=== PATIENT | male | born 1940 | race Caucasian/White ===

== ENCOUNTER 2019-03-02 13:59 | Inpatient (IN) ==
[2019-03-02] MEDS ORDERED: IOPAMIDOL 100 ML BOTTLE IV ONE (14:00)
[2019-03-02] MEDS ORDERED: ONDANSETRON 4 MG/2 ML VIAL IV ONE (14:14)
[2019-03-02] MEDS ORDERED: 0.9 % SODIUM CHLORIDE 1,000 ML IV ONE (14:14)
[2019-03-02] MEDS: HYDROmorphone 2 MG/ML VIAL IV PRN ×2 (14:24→14:49)
[2019-03-02 15:00] LABS: Hematocrit 42.2 % (41.0-55.0); Mean Cell Volume 98.6 fL (80.0-100.0); Mean Corpuscular HGB Conc 33.2 g/dL (31.0-36.0); Mean Platelet Volume 8.1 fL (7.4-10.4); Platelet Count 306 K/mcL (140-440); RBC 4.28 M/mcL (4.50-5.90); Red Cell Distribution Width 13.8 % (11.5-14.5); WBC 5.4 K/mcL (4.5-11.0)
[2019-03-02 15:12] LABS: POC Blood Urea Nitrogen 15 mg/dl (8-23); POC CO2 25 mmol/L (22-30); POC Calcium, Ionized 1.14 mmol/L (1.16-1.32); POC Chloride 102 mmol/L (96-108); POC Creatinine 0.7 mg/dl (0.7-1.2); POC Glucose, Random 85 mg/dL (70-105); POC Potassium 3.7 mmol/L (3.3-5.1); POC Sodium 141 mmol/L (133-145)
--- NOTE | 2019-03-02 15:31 | Emergency Department Note ---
Abdominal Pain HPI - General Source: patient, family Mode of arrival: ambulatory Limitations: no limitations <Chirag Gomes - Last Filed: 03/02/19 18:08> <Fermin Langford - Last Filed: 03/02/19 18:55> - General Chief Complaint: Abdominal Pain Stated Complaint: abdominal pain Time Seen by Provider: 03/02/19 14:14 - History of Present Illness HPI Narrative: 78-year-old male patient presents to the emergency department after being referred from his chipper operator for worsening abdominal pain. Patient has a very long and complex gastrointestinal history dating back to the . He's had a total of 6 feet of small bowel resected in 2 different surgeries to help treat complex diverticulitis. The first surgery being in 2015 and the second being in 2017. After the second surgery the patient and his tell me this is when most of the problem started. He's been seen by multiple specialists as far as Traci Bhatti over by [place]. His current chipper operator is Dr. Robb here in the local community. He was at Dr. Robb's office for follow-up earlier today. During that time he was complaining of worsening umbilical pain. He has had a history of small bowel instruction in the past and there was worried this may be recurrent. He was referred over to the emergency department for ongoing evaluation and further study. Upon arrival patient describes the pain is worse around his umbilicus. He normally has an underlying abdominal pain but this is now become severe and gnawing. He admits to some nausea but no vomiting. He denies diarrhea. He denies active fever, sweats, chills. He denies shortness of breath. He denies retrosternal chest pain or palpitations. He has a past history of kidney stones and underwent lithotripsy several months back. There was question about him suffering from gastroparesis but fortunately he's had a normal gastric emptying study recently which effectively rules that out. Patient admits to long standing history of marijuana use. There was discussion today at the GI specialist's office about worsening abdominal pain associated with daily marijuana use. Review his active problem list shows the following: A history of photovaporization of the prostate, cholecystectomy, SVT, renal cysts, kidney stones, hypothyroidism, diverticulosis, BPH. (Chirag Gomes) I reviewed and discussed this case with Chirag Gomes PA-C. I agree with his evaluation management documentation. In particular we discussed management and I interviewed the patient myself I got additional history from his . (Fermin Langford) - Related Data Home Medications Medication Instructions Recorded Confirmed Omeprazole [Prilosec] 20 mg PO BIDAC 05/29/15 02/05/19 traZODone HCL [Desyrel] 100 mg PO HS 05/29/15 02/05/19 apixaban 5 mg tablet 5 mg PO BID 07/31/18 02/05/19 aspirin 81 mg chewable tablet 81 mg PO QDAY 07/31/18 02/05/19 cyanocobalamin (vitamin B-12) 500 500 mcg PO QDAY 07/31/18 02/05/19 mcg tablet duloxetine 30 mg capsule,delayed 30 mg PO BID 07/31/18 02/05/19 release metoprolol succinate 25 mg 25 mg PO DAILY 07/31/18 02/05/19 tablet,extended release 24 hr polyethylene glycol 3350 17 PO g 07/31/18 02/05/19 gram/dose oral powder riboflavin (vitamin B2) 100 mg 400 mg PO QDAY tab 10/29/18 02/05/19 tablet linaclotide 145 mcg capsule 145 mcg PO BID cap 11/30/18 02/05/19 Previous Rx's Medication Instructions Recorded tamsulosin 0.4 mg capsule 0.4 mg PO BID #60 cap 07/23/17 tramadol 50 mg tablet 50 mg PO Q6H #30 tab 02/05/19 Allergies Allergy/AdvReac Type Severity Reaction Status Date / Time hydrocodone AdvReac Mild constipatio Verified 02/05/19 11:21 n Review of Systems All systems ED: reviewed and negative except as stated. <Chirag Gomes - Last Filed: 03/02/19 18:08> Abdominal Pain PMH - Social History Smoking status: Never smoker <Chirag Gomes - Last Filed: 03/02/19 18:08> Physical Exam Limitations: no limitations General appearance: alert, anxious, grimacing, in distress, tearful, other (p atient is tachypneic and very anxious upon arrival. He is obviously very uncomfortable.) Head: atraumatic, normocephalic Eye: Present: normal appearance, PERRL, EOMI. Absent: scleral icterus, conjunctival injection ENT: Present: normal oropharynx, mucous membranes moist Neck: Present: trachea midline. Absent: lymphadenopathy Chest: Present: symmetric chest wall rise Respiratory: Present: normal lung sounds bilaterally. Absent: respiratory dis tress, wheezes, stridor, accessory muscle use, prolonged expiratory phase Cardiovascular: Present: regular rate, normal rhythm. Absent: systolic murmur, diastolic murmur Abdominal: Present: soft, tenderness, guarding, hyperactive bowel sounds, scar (well-healed midline surgical scar.). Absent: distention, rebound, rigidity, organomegaly, ascites, mass Abdominal tenderness: Present: edouard umbilical, severe Extremities: Absent: pedal edema, pretibial edema, calf tenderness Back: Present: normal inspection. Absent: tenderness, CVA tenderness (R), CVA tenderness (L) Neurological: Present: alert, oriented X3 Psychiatric: Present: agitated, anxious, tearful Skin: Present: warm, dry <Chirag Gomes - Last Filed: 03/02/19 18:08> Course <Chirag Gomes - Last Filed: 03/02/19 18:08> Course Narrative: Patient was brought into the emergency department any history of physical exam was performed. Saline lock was established and laboratory studies were drawn. CT scan his abdomen was ordered. I reached out to Dr. Robb and we spoke to him about the patient's history and need for further evaluation. At this time Dr. Robb is concern for recurrent small bowel obstruction. Otherwise mention of frequent marijuana use and some concern for marijuana induced hyperemesis/abdominal pain syndrome. Patient was told to stop all marijuana use at today's visit see if this helps with his symptoms. A review of his laboratory studies that she'll following: CBC RBC 4.28, all others within normal limits. CMP alkaline phosphatase mildly elevated 146, all others normal limits. Lactic acid 2.8. Lipase 18. Urinalysis showing hazy yellow urine with specific gravity 1.021, positive proteinuria, negative all others. EKG showing sinus arrhythmia at a rate of 69 bpm, without ST segment changes or ectopy. 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 Radiologist mentioned this is at the site of a prior anastomosis. Increasing dilatation of the intra-and extrahepatic bile ducts. This could be a stricture at the ampulla most likely a mass. There is bilateral nonobstructing kidney stones. After reviewing all of the data, I reached out to the patient's chipper operator (Dr. Robb) once again. He recommended that the patient undergo an MRCP and likely a HIDA scan to help sort out his CT scan findings. I discussed the patient's case with my collaborating physician (Dr. Langford). At this time the patient is in need of ongoing evaluation/management. Dr. Langford has assumed the patient's case and will determine the patient's final disposition. (Chirag Gomes) Vital Signs Temperature 98.1 F 03/02/19 14:01 Pulse Rate 81 03/02/19 14:01 Respiratory Rate 18 03/02/19 14:01 Blood Pressure 123/79 03/02/19 14:01 Pulse Oximetry (%) 97 03/02/19 14:01 Temperature 98.1 F 03/02/19 14:01 Pulse Rate 66 03/02/19 18:31 Respiratory Rate 32 H 03/02/19 18:31 Blood Pressure 124/80 03/02/19 18:31 Pulse Oximetry (%) 99 03/02/19 18:31 Abdominal Pain - Lab Data Result diagrams: 03/02/19 14:20 03/02/19 14:20 - Radiology Data Radiology results reviewed: Yes I reviewed the patient's radiology results. <Chirag Gomes - Last Filed: 03/02/19 18:08> - Lab Data Lab results reviewed: Yes I reviewed the patient's lab results. Result diagrams: 03/02/19 14:20 03/02/19 14:20 - Radiology Data Radiology results reviewed: Yes I reviewed the patient's radiology results. <Fermin Langford - Last Filed: 03/02/19 18:55> - Lab Data Lab Results 03/02/19 03/02/19 03/02/19 Range/Units 14:10 14:20 14:20 WBC 5.4 (4.5-11.0) K/mcL RBC 4.28 L (4.50-5.90) M/mcL Hgb 14.0 (13.5-16.5) g/dL Hct 42.2 (41.0-55.0) % POC Hct (41.0-55.0) % MCV 98.6 (80.0-100.0) fL MCH 32.7 (26.0-34.0) pg MCHC 33.2 (31.0-36.0) g/dL RDW 13.8 (11.5-14.5) % Plt Count 306 (140-440) K/mcL MPV 8.1 (7.4-10.4) fL Total Counted 100 Seg Neutrophils % 75 (38-78) % Band Neutrophils % Not Reportable Lymphocytes % 14 L (15-49) % Monocytes % (Manual) 11 (1-12) % Platelet Estimate Normal (NORMAL) RBC Morphology Normal (NORMAL) VBG Lactic Acid 2.8 H (0.5-2.0) mmol/L POC Sodium (133-145) mmol/L Sodium 141 (133-145) mmol/L POC Potassium (3.3-5.1) mmol/L Potassium 4.0 (3.3-5.1) mmol/L POC Chloride (96-108) mmol/L Chloride 103 (96-108) mmol/L Carbon Dioxide 25 (22-30) mmol/L POC Total CO2 (22-30) mmol/L Anion Gap 13.0 (8-16) POC BUN (8-23) mg/dl BUN 15 (8-23) mg/dl Creatinine 0.7 (0.7-1.2) mg/dl POC Creatinine (0.7-1.2) mg/dl GFR Calculation 91 Glucose 93 (70-105) mg/dL POC Glucose (70-105) mg/dL Calcium 9.6 (8.6-10.4) mg/dl POC WB Ioniz Calcium (1.16-1.32) mmol/L Total Bilirubin 0.2 (0.0-1.0) mg/dL AST 21 (0-37) U/l ALT 22 (0-40) U/l Alkaline Phosphatase 146 H (39-117) U/L Total Protein 7.4 (5.9-8.4) gm/dL Albumin 4.3 (3.2-5.2) gm/dL Globulin 3.1 (2.2-3.7) gm/dL Albumin/Globulin Ratio 1.4 (1.0-2.3) Lipase 18 (7-60) U/L Urine Color Urine Appearance Urine pH (5.0-9.0) Ur Specific Holt (1.000-1.035) Urine Protein (NEG) mg/dL Urine Glucose (UA) (NEG) mg/dL Urine Ketones (NEG) mg/dL Urine Occult Blood (<0.03) mg/dL Urine Nitrate (NEG) Urine Bilirubin (NEG) mg/dL Urine Urobilinogen (NEG) mg/dL Ur Leukocyte Esterase (NEG) /uL Urine RBC (0-1) /hpf Urine WBC (0-4) /hpf Ur Squamous Epith Cells (0-4) /hpf Urine Bacteria (0) /hpf Urine Mucus (0) /hpf 03/02/19 03/02/19 Range/Units 14:56 15:41 WBC (4.5-11.0) K/mcL RBC (4.50-5.90) M/mcL Hgb (13.5-16.5) g/dL Hct (41.0-55.0) % POC Hct 39.0 L (41.0-55.0) % MCV (80.0-100.0) fL MCH (26.0-34.0) pg MCHC (31.0-36.0) g/dL RDW (11.5-14.5) % Plt Count (140-440) K/mcL MPV (7.4-10.4) fL Total Counted Seg Neutrophils % (38-78) % Band Neutrophils % Lymphocytes % (15-49) % Monocytes % (Manual) (1-12) % Platelet Estimate (NORMAL) RBC Morphology (NORMAL) VBG Lactic Acid (0.5-2.0) mmol/L POC Sodium 141 (133-145) mmol/L Sodium (133-145) mmol/L POC Potassium 3.7 (3.3-5.1) mmol/L Potassium (3.3-5.1) mmol/L POC Chloride 102 (96-108) mmol/L Chloride (96-108) mmol/L Carbon Dioxide (22-30) mmol/L POC Total CO2 25 (22-30) mmol/L Anion Gap (8-16) POC BUN 15 (8-23) mg/dl BUN (8-23) mg/dl Creatinine (0.7-1.2) mg/dl POC Creatinine 0.7 (0.7-1.2) mg/dl GFR Calculation Glucose (70-105) mg/dL POC Glucose 85 (70-105) mg/dL Calcium (8.6-10.4) mg/dl POC WB Ioniz Calcium 1.14 L (1.16-1.32) mmol/L Total Bilirubin (0.0-1.0) mg/dL AST (0-37) U/l ALT (0-40) U/l Alkaline Phosphatase (39-117) U/L Total Protein (5.9-8.4) gm/dL Albumin (3.2-5.2) gm/dL Globulin (2.2-3.7) gm/dL Albumin/Globulin Ratio (1.0-2.3) Lipase (7-60) U/L Urine Color Yellow Urine Appearance Hazy Urine pH 6.0 (5.0-9.0) Ur Specific Holt 1.021 (1.000-1.035) Urine Protein 30 A (NEG) mg/dL Urine Glucose (UA) Negative (NEG) mg/dL Urine Ketones Neg (NEG) mg/dL Urine Occult Blood Neg (<0.03) mg/dL Urine Nitrate Neg (NEG) Urine Bilirubin Neg (NEG) mg/dL Urine Urobilinogen Neg (NEG) mg/dL Ur Leukocyte Esterase Neg (NEG) /uL Urine RBC 0 (0-1) /hpf Urine WBC < 1 (0-4) /hpf Ur Squamous Epith Cells < 1 (0-4) /hpf Urine Bacteria 0 (0) /hpf Urine Mucus Many A (0) /hpf - Radiology Data Ordering Physician: Fermin Langford M.D. Date of Service: 03/02/19 Procedure(s): CT abdomen pelvis w con Accession Number(s): [id number] History: Severe abdominal pain TECHNIQUE: The patient was imaged following oral and intravenous contrast scanning during the portal venous phase and the delayed excretory phase. Sagittal and coronal reformats were created. The radiation exposure was limited using dose reduction technology. FINDINGS: The liver is normal in size. There is moderate dilatation of the intrahepatic ducts and more severe dilatation of the extrahepatic ducts. Common hepatic duct is 2 cm and proximal common bile duct is 1.8 cm size. The common bile duct measured 1.2 cm in size on the prior CT scan done on 11/04/18. There is no apparent stone or mass at the ampulla. The gallbladder surgically absent. The liver parenchyma is homogeneous but there is mild generalized fatty infiltration. The spleen is normal in size and homogeneous. Is no evidence of mass or inflammation the pancreas. The adrenals are normal. The patient has a large simple cyst in the middle third of the right kidney which extends exophytically. It measures 6.2 x 7.1 cm. There are few nonobstructing kidney stones within calyces of both kidneys. The largest is located in the middle third of the left kidney and measures 3 x 7 mm. No hydronephrosis is present. Patient had bilateral kidney stones on the prior CT scan. That time there is a larger 7 x 7 mm stone in the lower pole of left kidney which is no longer present. The stomach is very distended with contrast. There is also abnormal dilatation of the proximal duodenum. The third segment of the duodenum measures up to 5.2 cm in diameter. There is a transition point near the junction of third and fourth segment of the duodenum. There is a row of anastomotic sutures at this level. Distal to the anastomosis the fourth portion of the duodenum measures up to 3.9 cm. The dilatation of the duodenum was not present on the prior study but there were anastomotic sutures at the same location. The oral contrast has passed through the stricture into jejunum and ileum. The proximal jejunum measures up to 3.3 cm in diameter. There is a gradual transition to normal caliber ileum. There is no evidence of a distal small bowel obstruction. The wall of the small intestine does not appear thickened or inflamed. There is a large amount of stool throughout the colon. There is no evidence of a distal large bowel obstruction. No diverticulitis or colitis are present. Urinary bladder is decompressed resulting in generalized thickening of the wall. The prostate is mildly enlarged. No mass, adenopathy, ascites or abscess are present within the abdomen or pelvis. The appendix is noninflamed. 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 This is the site of a prior anastomosis. Increasing dilatation of the intra and extrahepatic bile ducts. This could be a stricture at the ampulla and less likely a mass. Nonobstructing bilateral kidney stones Dr. Langford was called with results Dr. Langford was called with the results Interpreted and Authenticated by: Barney Fuchs 03/02/19 (Chirag Gomes) I discussed these results with surgeon Dr. Jameson, his general surgeon. He reviewed the CT scan himself and said that patient did not need surgery at this time. He felt that we could manage the patient here with GI, Dr. Guerin and hospitalist if needed (Fermin Langford) Disposition <Chirag Gomes - Last Filed: 03/02/19 18:08> Pt seen by FOOD SAFETY TECHNICIAN/PA only: No <Fermin Langford - Last Filed: 03/02/19 18:55> Clinical Impression: SBO (small bowel obstruction) Summary: I discussed this case with normally Chirag Gomes PA-C but then with Dr. De Jesus the hospitalist. He advised me to get Dr. Carr involved in case we needed to decide when to transfer the patient. I discussed the case with Dr. Corwin Carr general surgeon here at [facility]. He advised me that he would be a peripheral category consultant and that we needed to do a small bowel follow-through on this patient in the morning. Dr. De Jesus had me additionally order an NG tube for this patient. So we will have Dr. De Jesus admit the patient is hospitalist and Dr. Raiza astudillo will be GI consult. Dr. Jameson, general surgeon at [facility] advised us to do a upper endoscopy as well but did not think he needed ERCP at this time. Dr. Guerin can do this. Dr. Carr will consult as well just in terms of surgical decision-making but if this patient needs surgery he will have to be transported to [facility] because of his abnormal anatomy and complexity. (Fermin Langford) Disposition: Xfer As Inpt ([facility]) Condition: Serious Referrals: Samreen Mathews PA-C [Primary Care Provider] - Corwin Carr MD [Physician] - Ja Bergeron MD [Physician] -
[2019-03-02 15:33] LABS: ALT/SGPT 22 U/l (0-40); AST/SGOT 21 U/l (0-37); Albumin 4.3 gm/dL (3.2-5.2); Albumin/Globulin Ratio 1.4 (1.0-2.3); Alkaline Phosphatase 146 U/L (39-117); Bilirubin,Total 0.2 mg/dL (0.0-1.0); Blood Urea Nitrogen 15 mg/dl (8-23); Calcium 9.6 mg/dl (8.6-10.4); Carbon Dioxide 25 mmol/L (22-30); Chloride 103 mmol/L (96-108); Globulin 3.1 gm/dL (2.2-3.7); Glomerular Filtration Rate 91; Glucose 93 mg/dL (70-105)
[2019-03-02 15:38] LABS: Lymphocytes % 14 % (15-49); Monocytes % (Manual) 11 % (1-12); Platelet Estimate NORMAL (NORMAL); RBC Morphology NORMAL (NORMAL); Segmented Neutrophils % 75 % (38-78)
--- NOTE | 2019-03-02 16:02 | Cat Scan Report ---
History: Severe abdominal pain TECHNIQUE: The patient was imaged following oral and intravenous contrast scanning during the portal venous phase and the delayed excretory phase. Sagittal and coronal reformats were created. The radiation exposure was limited using dose reduction technology. FINDINGS: The liver is normal in size. There is moderate dilatation of the intrahepatic ducts and more severe dilatation of the extrahepatic ducts. Common hepatic duct is 2 cm and proximal common bile duct is 1.8 cm size. The common bile duct measured 1.2 cm in size on the prior CT scan done on 11/04/18. There is no apparent stone or mass at the ampulla. The gallbladder surgically absent. The liver parenchyma is homogeneous but there is mild generalized fatty infiltration. The spleen is normal in size and homogeneous. Is no evidence of mass or inflammation the pancreas. The adrenals are normal. The patient has a large simple cyst in the middle third of the right kidney which extends exophytically. It measures 6.2 x 7.1 cm. There are few nonobstructing kidney stones within calyces of both kidneys. The largest is located in the middle third of the left kidney and measures 3 x 7 mm. No hydronephrosis is present. Patient had bilateral kidney stones on the prior CT scan. That time there is a larger 7 x 7 mm stone in the lower pole of left kidney which is no longer present. The stomach is very distended with contrast. There is also abnormal dilatation of the proximal duodenum. The third segment of the duodenum measures up to 5.2 cm in diameter. There is a transition point near the junction of third and fourth segment of the duodenum. There is a row of anastomotic sutures at this level. Distal to the anastomosis the fourth portion of the duodenum measures up to 3.9 cm. The dilatation of the duodenum was not present on the prior study but there were anastomotic sutures at the same location. The oral contrast has passed through the stricture into jejunum and ileum. The proximal jejunum measures up to 3.3 cm in diameter. There is a gradual transition to normal caliber ileum. There is no evidence of a distal small bowel obstruction. The wall of the small intestine does not appear thickened or inflamed. There is a large amount of stool throughout the colon. There is no evidence of a distal large bowel obstruction. No diverticulitis or colitis are present. Urinary bladder is decompressed resulting in generalized thickening of the wall. The prostate is mildly enlarged. No mass, adenopathy, ascites or abscess are present within the abdomen or pelvis. The appendix is noninflamed. 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 This is the site of a prior anastomosis. Increasing dilatation of the intra and extrahepatic bile ducts. This could be a stricture at the ampulla and less likely a mass. Nonobstructing bilateral kidney stones Dr. Langford was called with results Dr. Langford was called with the results Interpreted and Authenticated by: Barney Fuchs 03/02/19
[2019-03-02 16:38] LABS: Appearance,Urine HAZY; Bacteria,Urine 0 /hpf (0); Bilirubin,Urine NEG (NEG); Color,Urine YELLOW; Glucose,Urine (UA) NEGATIVE (NEG); Ketones,Urine NEG (NEG); Leukocyte Esterase,Urine NEG /uL (NEG); Mucus,Urine MANY /hpf (0); Nitrate,Urine NEG (NEG); Protein,Urine 30 mg/dL (NEG); Specific Gravity,Urine 1.021 (1.000-1.035); Urine Blood NEG mg/dL (<0.03); Urine RBC 0 /hpf (0-1); Urine Squamous Epithelial Cell < 1 /hpf (0-4); Urine WBC < 1 /hpf (0-4); Urobilinogen,Urine NEG (NEG)
--- NOTE | 2019-03-02 18:45 | Internal Med History&Physical ---
Medical - H&P: HPI Patient information: Note initiated : 03/02/19 at 6:42 pm Service Date, if different from initiated Date: [] Patient: Luc Major 78 y/o M admitted on for abdominal pain. Chief Complaint: [] Chief complaint: Nausea vomiting History of present illness: Mr. Major is a 78 year old M with a history of prior bowel surgeries 2 years ago at [facility] following diverticulitis with bowel resection and subsequent anastomosis. Patient has had since recurrent episodes of abdominal pain/anastomotic site stricture with small bowel obstruction that have been man aged conservatively. He has not really had a symptom-free interval over the last 2 years and has been battling intermittent abdominal pain cramping for which she takes a very specific evenly spaced diet with a modified texture. However the last 48 hours his symptoms have progressed to increasing nausea and relentless vomiting, abdominal pain 8 out of 10-10 out of 10 and has not been to take anything by mouth. His abdomen feels like a knot of air that moves with intermittent bowel spasm. He presents to the ER with above symptoms. Initial work-up was consistent with partial small bowel obstruction at the level 3-4th part of duodenum anastomotic site with dilated common bile duct 2 cm. However liver functions were within normal limits. GI was consulted along with surgery Dr. Matos at [facility] who recommended admission locally for conservative management and transfer if the patient fails to improve or deteriorates. In-house surgeon was also consulted from ER who recommends small bowel follow through in the morning. At the time of evaluation patient is fairly distressed. He is received opioids for pain. His nausea has improved. He is currently on crystalloids. NG tube was placed on intermittent low suction. He denies recent changes in medication he denies bloody emesis/cough/fever or diarrhea. He is and lives with his at [place]. No family members are present. Review of systems 10 point review of system was performed and is negative except was discussed above Medical - H&P: PMH Medical history: SVT (supraventricular tachycardia) (Acute) Renal cyst (Acute) Ptosis (Acute) Palpitations (Acute) Kidney stone (Acute) Hypothyroidism (Acute) Left flank pain (Acute) Diverticulosis (Acute) DDD (degenerative disc disease) (Acute) Kidney cyst, acquired (Acute) BPH with urinary obstruction (Acute) History of endoscopy (Acute) Two since 2017 Surgical History History of photovaporization of prostate (Acute 09/06/14) H/O excision of ganglion cyst (Acute) Right History of cholecystectomy (Acute) History of bowel resection (Acute) 06/04/17 Family History Grandmother Malignant neoplasm of uterus Maternal and Paternal Grandfather Cardiac disease Social History smoking status: Never smoker alcohol intake frequency: holiday/special occasion only substance use type: does not use Medical - H&P: Meds Home Medications Medication Instructions Recorded Confirmed Type Omeprazole [Prilosec] 20 mg PO BIDAC 05/29/15 03/02/19 History traZODone HCL [Desyrel] 100 mg PO HS 05/29/15 03/02/19 History tamsulosin 0.4 mg capsule 0.4 mg PO BID #60 cap 07/23/17 03/02/19 Rx apixaban 5 mg tablet 5 mg PO BID 07/31/18 03/02/19 History aspirin 81 mg chewable tablet 81 mg PO QDAY 07/31/18 03/02/19 History cyanocobalamin (vitamin B-12) 500 500 mcg PO QDAY 07/31/18 03/02/19 History mcg tablet duloxetine 30 mg capsule,delayed 30 mg PO BID 07/31/18 03/02/19 History release metoprolol succinate 25 mg 25 mg PO DAILY PRN 07/31/18 03/02/19 History tablet,extended release 24 hr polyethylene glycol 3350 17 17 gm PO DAILY g 07/31/18 03/02/19 History gram/dose oral powder riboflavin (vitamin B2) 100 mg 400 mg PO QDAY tab 10/29/18 03/02/19 History tablet linaclotide 145 mcg capsule 145 mcg PO DAILY cap 11/30/18 03/02/19 History Ascorbate Calcium [Vitamin C] 500 mg PO BID 03/02/19 03/02/19 History Levothyroxine Sodium [Euthyrox] 200 mcg PO DAILY 03/02/19 03/02/19 History traMADol [Ultram] 50 mg PO Q6H PRN 03/02/19 03/02/19 History Allergies Allergy/AdvReac Type Severity Reaction Status Date / Time hydrocodone AdvReac Mild constipatio Verified 02/05/19 11:21 n Medical - H&P: Exam - Constitutional Vitals: Temp Pulse Resp BP Pulse Ox 98.1 F 66 32 H 124/80 99 03/02/19 14:01 03/02/19 18:31 03/02/19 18:31 03/02/19 18:31 03/02/19 18:31 General appearance: moderate distress Exam: Alert but anxious in distress from abdominal pain Nonlabored breathing Head normocephalic Oral cavity dry NG tube in place no ear nose discharge Neck no lymphadenopathy S1-S2 Diminished breath sounds bases regular rhythm Sats on room air Abdomen tender/midline prior incision scar. No rebound or guarding Skin no suspicious lesion Lower extremity no cyanosis clubbing no joint swelling Psych alert cooperative but anxious Neuro nonfocal Medical - H&P: Reslt - Labs CBC & Chem 7: 03/03/19 04:08 03/03/19 04:08 Labs: Short CBC 03/02/19 Range/Units 14:20 WBC 5.4 (4.5-11.0) K/mcL Hgb 14.0 (13.5-16.5) g/dL Hct 42.2 (41.0-55.0) % Plt Count 306 (140-440) K/mcL BMP 03/02/19 14:20 Sodium 141 Potassium 4.0 Chloride 103 Carbon Dioxide 25 BUN 15 Creatinine 0.7 Glucose 93 Calcium 9.6 Liver Function 03/02/19 Range/Units 14:20 Total Bilirubin 0.2 (0.0-1.0) mg/dL AST 21 (0-37) U/l ALT 22 (0-40) U/l Alkaline Phosphatase 146 H (39-117) U/L Albumin 4.3 (3.2-5.2) gm/dL Urine 03/02/19 Range/Units 15:41 Urine Color Yellow Urine Appearance Hazy Urine pH 6.0 (5.0-9.0) Ur Specific [place] 1.021 (1.000-1.035) Urine Protein 30 A (NEG) mg/dL Urine Glucose (UA) Negative (NEG) mg/dL Medical - H&P: A/P (1) SBO (small bowel obstruction) Current visit: Yes Status: Acute * Small bowel obstruction anastomotic site stricture on CT-n.p.o./NG decompression/GI consulted. [facility] a.m. Surgery consulted. Patient has history of prior abdominal surgery at [facility]. Surgeon at [facility] recommends limited management and transfer if patient fails to improve. Continue crystalloids/analgesics/NG decompression. * Abdominal pain management on as needed opioids * Nausea vomiting continue antiemetics/conservative management Prior medical issues will be started on home medications once acute bowel obstruction resolves * History of hypertension * Hypothyroidism * GERD * BPH * Anxiety disorder * Anticoagulation * Full code * Prophylaxis will be heparin, oral anticoagulation will be held at this time Plan * Inpatient admission * NG decompression/crystalloids/pain management * GI consult for upper endoscopy * Keep n.p.o.
[2019-03-02] MEDS ORDERED: POTASSIUM CHLORIDE 40 MEQ in DEXTROSE 5% IN WATER 500 ML IV PRN (20:18)
[2019-03-02] MEDS ORDERED: ONDANSETRON 4 MG/2 ML VIAL IV PRN (20:18)
[2019-03-02] MEDS ORDERED: HYDROmorphone 2 MG/ML VIAL IV PRN (20:18)
[2019-03-02] MEDS ORDERED: ACETAMINOPHEN 1,000 MG/100 ML BOTTLE IV PRN (20:18)
[2019-03-02] MEDS ORDERED: MAGNESIUM SULFATE 2 GM/50 ML BAG IV PRN (20:18)
[2019-03-02] MEDS ORDERED: ACETAMINOPHEN 325 MG TABLET PO PRN (20:18)
[2019-03-02] MEDS: HEPARIN 5,000 UNIT/ML VIAL SQ SCH (22:36)
[2019-03-02] MEDS: 0.9 % SODIUM CHLORIDE 10 ML SYRINGE IV SCH (23:11)
[2019-03-02] MEDS: LACTATED RINGERS 1,000 ML IV SCH (23:11)
[2019-03-03] MEDS: 0.9 % SODIUM CHLORIDE 10 ML SYRINGE IV SCH ×3 (04:13→21:02)
[2019-03-03] MEDS: LACTATED RINGERS 1,000 ML IV SCH ×2 (06:14→17:39)
[2019-03-03 06:57] LABS: Hematocrit 34.4 % (41.0-55.0); Hemoglobin 11.7 g/dL (13.5-16.5); Mean Platelet Volume 7.9 fL (7.4-10.4); Platelet Count 260 K/mcL (140-440); RBC 3.51 M/mcL (4.50-5.90); Red Cell Distribution Width 13.3 % (11.5-14.5); WBC 4.8 K/mcL (4.5-11.0)
[2019-03-03 07:24] LABS: ALT/SGPT 17 U/l (0-40); AST/SGOT 18 U/l (0-37); Albumin 3.4 gm/dL (3.2-5.2); Albumin/Globulin Ratio 1.3 (1.0-2.3); Alkaline Phosphatase 114 U/L (39-117); Bilirubin,Direct < 0.2 mg/dL (0.0-0.3); Bilirubin,Total 0.3 mg/dL (0.0-1.0); Blood Urea Nitrogen 15 mg/dl (8-23); Calcium 8.6 mg/dl (8.6-10.4); Carbon Dioxide 24 mmol/L (22-30); Chloride 102 mmol/L (96-108); Globulin 2.7 gm/dL (2.2-3.7); Glomerular Filtration Rate 91; Glucose 81 mg/dL (70-105); Lactate Dehydrogenase 154 U/L (94-250); Triglycerides 67 mg/dl (<150); Uric Acid 3.3 mg/dL (2.5-8.0)
--- NOTE | 2019-03-03 07:36 | XRay Report ---
HISTORY: Nasogastric tube insertion. FINDINGS: nasogastric tube has been inserted. The tip is in the body in the stomach pointing towards left lower quadrant of the abdomen. There is no widening in the mediastinum. Except for calcified granuloma in the right upper lobe, the lungs are otherwise clear. Heart size is within normal limits and there is no congestive heart failure or pleural effusion. IMPRESSION: Well-positioned nasogastric tube and no acute abnormality Dr. Langford was called with the results Interpreted and Authenticated by: Barney Fuchs 03/03/19
[2019-03-03 09:49] LABS: Band Neutrophils % 2 % (0-10); Eosinophils % (Manual) 2 % (0-7); Lymphocytes % 17 % (15-49); Monocytes % (Manual) 9 % (1-12); Platelet Estimate NORMAL (NORMAL); RBC Morphology NORMAL (NORMAL); Reactive Lymphocytes 1 % (0-2); Segmented Neutrophils % 69 % (38-78)
[2019-03-03] MEDS ORDERED: DIATRIZOATE MEGLU/DIATRIZO SOD 30 ML BOTTLE PO ONE (10:27)
[2019-03-03] MEDS: BENZOCAINE 1 SPRAY BOTTLE TOPICAL PRN ×2 (10:31→14:11)
[2019-03-03] MEDS: HEPARIN 5,000 UNIT/ML VIAL SQ SCH ×2 (10:47→21:02)
--- NOTE | 2019-03-03 12:21 | Internal Med Progress Note ---
Medical - PN: Subj Patient information: Note initiated : 03/03/19 at 12:19 pm Service Date, if different from initiated Date: [] Patient: Luc Major 78 y/o M admitted on 03/02/19 for abdominal pain. Chief Complaint: [] Interval history: Mr. Major is a 78 year old M with a history of prior bowel surgeries 2 years ago at [facility] following diverticulitis with bowel resection and subsequent anastomosis. Patient has had since recurrent episodes of abdominal pain/anastomotic site stricture with small bowel obstruction that have been managed conservatively. He has not really had a symptom-free interval over the last 2 years and has been battling intermittent abdominal pain cramping for which she takes a very specific evenly spaced diet with a modified texture. However the last 48 hours his symptoms have progressed to increasing nausea and relentless vomiting, abdominal pain 8 out of 10-10 out of 10 and has not been to take anything by mouth. His abdomen feels like a knot of air that moves with intermittent bowel spasm. He presents to the ER with above symptoms. Initial work-up was consistent with partial small bowel obstruction at the level 3-4th part of duodenum anastomotic site with dilated common bile duct 2 cm. However liver functions were within normal limits. GI was consulted along with surgery Dr. Matos at [facility] who recommended admission locally for conservative management and transfer if the patient fails to improve or deteriorates. In-house surgeon was also consulted from ER who recommends small bowel follow through in the morning. At the time of evaluation patient is fairly distressed. He is received opioids for pain. His nausea has improved. He is currently on crystalloids. NG tube was placed on intermittent low suction. He denies recent changes in medication he denies bloody emesis/cough/fever or diarrhea. He is and lives with his at [place]. No family members are present. 03/03-patient in significant discomfort. Continuing crystalloid/n.p.o. status and NG decompression. Small bowel follow-through completed this morning. Shortly following imaging patient had a large bowel movement. Nontender nondistended abdomen. Patient feels hungry. Await surgery recommendations. NG tube minimal output. No overnight fever chills. Labs within normal limits - Constitutional Vitals: Vital Signs Temp Pulse Resp BP Pulse Ox 97.1 F 67 16 122/80 94 03/03/19 08:00 03/03/19 08:00 03/03/19 08:00 03/03/19 08:00 03/03/19 08:00 Period Temp Pulse Resp BP Sys/[place] Pulse Ox Last 24 Hr 97.1 F-99.4 F 63-81 12-35 99-135/62-85 93-100 Intake and Output 03/02/19 03/03/19 03/03/19 21:59 05:59 13:59 Intake Total 1000 0 1000 Output Total 300 500 725 Balance 700 -500 275 Weight 144 lb Intake & Output: Intake & Output 03/02/19 03/03/19 03/03/19 21:59 05:59 13:59 Intake Total 1000 0 1000 Output Total 300 500 725 Balance 700 -500 275 Weight 144 lb Intake: IV 1000 1000 Sodium Chloride 0.9% 1,000 ml @ 1000 Wide Open IV BOLUS ONE Rx#: [id number] Lactated Ringers 1,000 ml @ 100 1000 mls/hr IV .Q10H BASIM Rx#: [id number] Oral 0 Output: Gastric Drainage 500 450 Left Nare 500 450 Void Amount 300 275 Other: Urine Appearance Clear Clear Urine Color Dark Yellow Dark Yellow Urine Odor Normal Normal Stool Size Large Stool Color Brown Stool Consistency Soft Liquid # Bowel Movements 1 General appearance: no acute distress Exam: NG compression nonlabored breathing Nondistended,Soft nontender abdomen Anxious No lymphedema Medical - PN: Obj Da - Labs CBC & Chem 7: 03/03/19 04:08 03/03/19 04:08 Labs: Abnormal Lab Results 03/03/19 03/02/19 03/02/19 04:08 15:41 14:56 RBC 3.51 L Hgb 11.7 L Hct 34.4 L POC Hct 39.0 L Lymphocytes % VBG Lactic Acid POC WB Ioniz Calcium 1.14 L Alkaline Phosphatase Urine Protein 30 A Urine Mucus Many A 03/02/19 03/02/19 03/02/19 14:20 14:20 14:10 RBC 4.28 L Hgb Hct POC Hct Lymphocytes % 14 L VBG Lactic Acid 2.8 H POC WB Ioniz Calcium Alkaline Phosphatase 146 H Urine Protein Urine Mucus Meds: Medications Acetaminophen (Tylenol) 650 mg PO Q4-6HP PRN PRN Reason: PAIN/FEVER > 101 Benzocaine (Cetacaine) 1 spray TOPICAL Q4-6HP PRN PRN Reason: Pain Last Admin: 03/03/19 10:31 Dose: 1 spray Documented by: Heparin Sodium (Porcine) (Heparin) 5,000 unit SQ Q12 [facility] Last Admin: 03/03/19 10:47 Dose: 5,000 unit Documented by: Hydromorphone HCl (Dilaudid) 0 mg IV Q4HP PRN PRN Reason: PAIN LEVEL > 6 Last Admin: 03/03/19 10:57 Dose: 0.5 mg Documented by: Lactated Ringer's (Lactated Ringers) 1,000 mls @ 100 mls/hr IV .Q10H [facility] Stop: 03/04/19 02:17 Last Admin: 03/03/19 06:14 Dose: 100 mls/hr Documented by: Acetaminophen (Ofirmev) 1,000 mg in 100 mls @ 200 mls/hr IV Q6HP PRN PRN Reason: PAIN/FEVER > 101 Magnesium Sulfate (Magnesium Sulfate) 2 gm in 50 mls @ 50 mls/hr IV UD PRN PRN Reason: MG = or < 1.7 Potassium Chloride 40 meq/ (Dextrose) 520 mls @ 130 mls/hr IV UD PRN PRN Reason: K+ = or < 3.5 Ondansetron HCl (Zofran) 4 mg IV Q4-6HP PRN PRN Reason: Nausea And Vomiting Last Admin: 03/03/19 02:17 Dose: 4 mg Documented by: Sodium Chloride (Saline Flush) 10 ml IV Q8 [facility] Last Admin: 03/03/19 04:13 Dose: Not Given Documented by: Medical - PN: A/P - Time Spent With Patient Total time spent is greater than 50% in coordination of care (as documented) at patient's floor/unit and/or counseling patient: 25 - 35 minutes (1) SBO (small bowel obstruction) Status: Acute Assessment and plan: * Small bowel obstruction anastomotic site stricture on CT-patient has been on NG decompression/n.p.o. overnight. Small bowel follow-through completed await results. However large bowel movement this morning following SBFT. Surgeon at [facility] recommends conservative management and transfer if patient fails to improve. Upper endoscopy scheduled 03/04 4 PM. Continue crystalloids/analgesics/NG decompression until further surgery recommendations. * Abdominal pain management on as needed opioids * Nausea vomiting clinical improvement noted on antiemetics Prior medical issues-medications will be restarted once patient able to tolerate p.o. * History of hypertension * Hypothyroidism * GERD * BPH * Anxiety disorder * Anticoagulation * Full code * Prophylaxis will be heparin, oral anticoagulation will be held at this time Plan * Await SBFT results * NG decompression/crystalloids/pain management * Upper endoscopy Dr. Guerin 03/04 4 PM * Keep n.p.o. until further surgery recommendations Current Visit: Yes Medical - PN: Qual - VTE Deep Vein Thrombosis/Pulmonary Embolism Present on Admission: No
--- NOTE | 2019-03-03 15:35 | XRay Report ---
HISTORY: Small bowel obstruction with abdominal pain FINDINGS: 720 mL of Gastrografin, diluted 1-3 with water was inserted into the stomach through the indwelling nasogastric tube. Serial images were acquired following the contrast passed through stomach and small bowel into the colon. The contrast reached the colon within one hour and 20 minutes. Two minutes 38 seconds of fluoroscopy time was used. The early images obtained five minutes after insertion of the contrast show much of the contrast has passed through the pylorus into the duodenum and jejunum. Second and third portions of the duodenum are relatively patulous. Fluoroscopy was performed immediately after the overhead images. At the time of fluoroscopy the second and third portions of duodenum had returned to normal caliber. The patient has had prior intestinal surgery at this level. The CT scan performed yesterday revealed sutures in the distal duodenum. The sutures cannot be clearly identified on fluoroscopy. No fixed stricture or mass are seen at the site of the anastomosis. On some of the delayed fluoroscopic images the duodenum again became distended but does not appear obstructed. The Gastrografin mixed with enteric fluid in the small intestine resulting in suboptimal opacification. The jejunum and ileum have normal mucosal pattern and motility. There is no evidence of an intrinsic or extrinsic mass and no stricture is identified. The terminal ileum is difficult to clearly identify but there is no evidence of obstruction at the ileocecal valve. There is a moderate amount of contrast in the right side of the colon at one hour 20 minutes. IMPRESSION: Patulous duodenum. This may be secondary to the prior surgery and possibly denervation. No mechanical obstruction is seen in the duodenum. Normal jejunum and ileum, without evidence of small bowel obstruction or inflammation Interpreted and Authenticated by: Barney Fuchs 03/03/19
[2019-03-04] MEDS: 0.9 % SODIUM CHLORIDE 10 ML SYRINGE IV SCH ×4 (03:34→21:25)
[2019-03-04 07:02] LABS: Hematocrit 34.2 % (41.0-55.0); Hemoglobin 11.5 g/dL (13.5-16.5); Mean Cell Volume 98.6 fL (80.0-100.0); Mean Corpuscular HGB Conc 33.6 g/dL (31.0-36.0); Mean Platelet Volume 7.9 fL (7.4-10.4); Platelet Count 255 K/mcL (140-440); RBC 3.46 M/mcL (4.50-5.90); Red Cell Distribution Width 13.5 % (11.5-14.5); WBC 5.1 K/mcL (4.5-11.0)
[2019-03-04 07:19] LABS: ALT/SGPT 17 U/l (0-40); AST/SGOT 18 U/l (0-37); Albumin 3.4 gm/dL (3.2-5.2); Albumin/Globulin Ratio 1.1 (1.0-2.3); Alkaline Phosphatase 117 U/L (39-117); Bilirubin,Direct < 0.2 mg/dL (0.0-0.3); Bilirubin,Total 0.4 mg/dL (0.0-1.0); Blood Urea Nitrogen 16 mg/dl (8-23); Calcium 8.6 mg/dl (8.6-10.4); Carbon Dioxide 24 mmol/L (22-30); Chloride 102 mmol/L (96-108); Glomerular Filtration Rate 91; Glucose 74 mg/dL (70-105); Lactate Dehydrogenase 174 U/L (94-250); Phosphorous 3.9 mg/dL (2.7-4.5); Triglycerides 57 mg/dl (<150); Uric Acid 3.6 mg/dL (2.5-8.0)
[2019-03-04] MEDS: HEPARIN 5,000 UNIT/ML VIAL SQ SCH (08:53)
[2019-03-04] MEDS ORDERED: METOPROLOL SUCCINATE 25 MG TAB.XL.24H PO PRN (10:09)
[2019-03-04] MEDS ORDERED: traMADol 50 MG TABLET PO PRN (10:09)
[2019-03-04 10:26] LABS: Eosinophils % (Manual) 2 % (0-7); Lymphocytes % 20 % (15-49); Monocytes % (Manual) 9 % (1-12); Platelet Estimate NORMAL (NORMAL); RBC Morphology NORMAL (NORMAL); Segmented Neutrophils % 69 % (38-78)
[2019-03-04] MEDS ORDERED: KETAMINE HCL 50 MG/ML ML IV PRN (12:41)
[2019-03-04] MEDS ORDERED: PROPOFOL 200 MG/20 ML VIAL IV SCH (12:45)
[2019-03-04] MEDS ORDERED: MIDAZOLAM 2 MG/2 ML VIAL IV SCH (12:45)
--- NOTE | 2019-03-04 15:55 | Operative Note ---
DATE OF OPERATION: 03/04/2019 PREPROCEDURE DIAGNOSES: Stricture, duodenum. By history, surgery of the duodenum and jejunum. The patient has a duodenoenterostomy. By history, gallbladder has been removed in 1989. He had some bowel resection in 12/2014 and 05/2017. I believe he has had trouble with diverticulitis in the past. POSTOPERATIVE DIAGNOSES: 1. Gastritis, minimal. 2. EGitis, minimal. 3. Duodenitis, mild. 4. Pyloritis, mild. 5. There is a slight stricture at the EG junction, but the duodenoenterostomy is wide open. No stricture found in the duodenum or jejunum. PROCEDURE: EGD and small bowel enteroscopy - push enteroscopy. SURGEON: Ja Bergeron M.D. INSTRUMENT USED: Olympus VIC [id number] and Olympus VIC [id number]. SPECIMENS OBTAINED: None. Previous evaluation for Helicobacter was negative 06/23/2018. INDICATIONS FOR PROCEDURE: The patient is a 78-year-old gentleman whose primary care provider is Samreen Mathews PA-C. He does have irritable bowel syndrome with predominant constipation and some arthritis. There was concern regarding gastroparesis. However, a nuclear medicine gastric emptying study showed a very normal emptying result. In fact, in 60 minutes 52% of the material had emptied out. This is well within the range of normal. This study was done on 04/21/2018. Recently, the patient has complained of increasing pain. He does use cannabis. This can cause pain. There was concern that he may have had partial bowel obstruction. He was sent to the emergency department. There was a CAT scan done that raised concern regarding a stricture in the duodenum. Radiologist made comments that part of the duodenum was dilated up to 5.2 cm in diameter. There was a transition point near the 3rd and 4th segment of the duodenum. The anastomotic sutures were seen. Distal to the anastomosis, the duodenum was around 3.9 cm in diameter. Because of this, endoscopy was indicated. He did have an EGD by Dr. Cornell at [facility]. This was done in 06/2018. There was no obvious mechanical obstruction of the duodenum. Biopsies were taken. There was no evidence of Helicobacter. Because of the CAT scan findings and the patient's symptoms, endoscopy is indicated. INFORMED CONSENT: Time of informed consent was 1433. The procedure was reviewed with the patient. The patient had no further questions and accepts the risks and benefits thereof. One of the risks that were discussed included . Additional risks that were also discussed included bleeding, reaction to medication, possible perforation and possible need for surgery. IV MEDICATIONS USED: Versed 2 mg and propofol 160 mg. FINDINGS: ESOPHAGUS: Proximal, mid and distal esophagus normal. EG JUNCTION: This was around 41 cm. There was minimal erythema noted. There was a slight narrowing or stricture noted. However, no dilation was accomplished. The patient did not really complain of dysphagia to solid foods. STOMACH: Cardia and fundus normal. Body and antrum: There were a few linear areas of dnvihhm-dy-syor erythema noted. No ulcers were seen. PYLORUS: There was some inflammation of the pyloric channel. Sometimes after the scope was passed, there was a small amount of bleeding. DUODENUM: The bulb appeared normal. The proximal descending limb of the duodenum appeared normal. There was an anastomosis noted. 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 There was some inflammation in the descending limb of the duodenum. Some of this bled a little bit and then stopped on its own. The pediatric colonoscope was used to go deep into the jejunum. No areas of stricture were found. In the proximal jejunum near the anastomosis, there were a few areas of erythema, but no stricturing and no bleeding and no definite angiodysplasia. The endoscope was advanced to about 20 cm to the hub. RECOMMENDATIONS: Continue PPI medication. Continued Dexilant. Given these findings, I am a little concerned the patient may have some partial bowel obstruction secondary to adhesions. Just as Dr. Cornell found, I find no mechanical stricture or narrowing that would cause any symptoms. Sedation time is 1438 to 1520. Please refer to the preprocedure nurse's notes, procedure flowsheet, procedure record, and post-procedure assessment for details of the sedation including the pre-, intra-, and post-service work. CRD:artem Job ID: [id number] Doc ID: [id number] Ja Cornell MD
[2019-03-04] MEDS: OMEPRAZOLE 20 MG CAPSULE PO SCH (17:56)
--- NOTE | 2019-03-04 20:47 | Internal Med Progress Note ---
Medical - PN: Subj Patient information: Note initiated : 03/04/19 at 8:45 pm Service Date, if different from initiated Date: [] Patient: Luc Major 78 y/o M admitted on 03/02/19 for abdominal pain. Chief Complaint: [] Interval history: Mr. Major is a 78 year old M with a history of prior bowel surgeries 2 years ago at [facility] following diverticulitis with bowel resection and subsequent anastomosis. Patient has had since recurrent episodes of abdominal pain/anastomotic site stricture with small bowel obstruction that have been managed conservatively. He has not really had a symptom-free interval over the last 2 years and has been battling intermittent abdominal pain cramping for which she takes a very specific evenly spaced diet with a modified texture. However the last 48 hours his symptoms have progressed to increasing nausea and relentless vomiting, abdominal pain 8 out of 10-10 out of 10 and has not been to take anything by mouth. His abdomen feels like a knot of air that moves with intermittent bowel spasm. He presents to the ER with above symptoms. Initial work-up was consistent with partial small bowel obstruction at the level 3-4th part of duodenum anastomotic site with dilated common bile duct 2 cm. However liver functions were within normal limits. GI was consulted along with surgery Dr. Matos at [facility] who recommended admission locally for conservative management and transfer if the patient fails to improve or deteriorates. In-house surgeon was also consulted from ER who recommends small bowel follow through in the morning. At the time of evaluation patient is fairly distressed. He is received opioids for pain. His nausea has improved. He is currently on crystalloids. NG tube was placed on intermittent low suction. He denies recent changes in medication he denies bloody emesis/cough/fever or diarrhea. He is and lives with his at [place]. No family members are present. 03/03-patient in significant discomfort. Continuing crystalloid/n.p.o. status and NG decompression. Small bowel follow-through completed this morning. Shortly following imaging patient had a large bowel movement. Nontender nondistended abdomen. Patient feels hungry. Await surgery recommendations. NG tube minimal output. No overnight fever chills. Labs within normal limits 03/04-patient doing well. Tolerating clears. EGD does not show any evidence of stricture. Patient started on soft diet post EGD. Will likely discharge in 24 hours. Dull pain nausea vomiting resolved. No concerns per staff. - Constitutional Vitals: Vital Signs Temp Pulse Resp BP Pulse Ox 97.9 F 78 14 125/72 98 03/04/19 19:55 03/04/19 19:55 03/04/19 19:55 03/04/19 19:55 03/04/19 19:55 Period Temp Pulse Resp BP Sys/Williamson Pulse Ox Last 24 Hr 97.9 F-98.5 F 62-90 11-18 105-137/64-82 90-99 Intake and Output 03/04/19 03/04/19 03/04/19 05:59 13:59 21:59 Intake Total 1318 720 Output Total 250 Balance 1068 720 Intake & Output: Intake & Output 03/04/19 03/04/19 03/04/19 05:59 13:59 21:59 Intake Total 1318 720 Output Total 250 Balance 1068 720 Intake: IV 993 Lactated Ringers 1,000 ml @ 100 993 mls/hr IV .Q10H [facility] Rx#: [id number] Oral 325 720 Output: Void Amount 250 Other: Meal Breakfast Percent of Meal Consumed 50% Feeding Ability Independent Urine Appearance Clear Clear Urine Color Light Anaid Bright Yellow Stool Size Small Moderate Stool Color Brown Stool Consistency Loose Liquid Watery General appearance: no acute distress Exam: Alert oriented Nonlabored breathing Nondistended abdomen No anxiety Medical - PN: Obj Da - Labs CBC & Chem 7: 03/04/19 04:05 03/04/19 04:05 Labs: Abnormal Lab Results 03/04/19 03/03/19 03/02/19 04:05 04:08 15:41 RBC 3.46 L 3.51 L Hgb 11.5 L 11.7 L Hct 34.2 L 34.4 L POC Hct Lymphocytes % VBG Lactic Acid POC WB Ioniz Calcium Alkaline Phosphatase Urine Protein 30 A Urine Mucus Many A 03/02/19 03/02/19 03/02/19 14:56 14:20 14:20 RBC 4.28 L Hgb Hct POC Hct 39.0 L Lymphocytes % 14 L VBG Lactic Acid POC WB Ioniz Calcium 1.14 L Alkaline Phosphatase 146 H Urine Protein Urine Mucus 03/02/19 14:10 RBC Hgb Hct POC Hct Lymphocytes % VBG Lactic Acid 2.8 H POC WB Ioniz Calcium Alkaline Phosphatase Urine Protein Urine Mucus Meds: Medications Acetaminophen (Tylenol) 650 mg PO Q4-6HP PRN PRN Reason: PAIN/FEVER > 101 Apixaban (Eliquis) 5 mg PO BID [facility] Ascorbic Acid (Vitamin C) 500 mg PO BID [facility] Aspirin (Aspirin) 81 mg PO QDAY [facility] Benzocaine (Cetacaine) 1 spray TOPICAL Q4-6HP PRN PRN Reason: Pain Last Admin: 03/03/19 14:11 Dose: 1 spray Documented by: Cyanocobalamin (Vitamin B-12) 500 mcg PO QDAY [facility] Duloxetine HCl (Cymbalta) 30 mg PO BID [facility] Hydromorphone HCl (Dilaudid) 0 mg IV Q4HP PRN PRN Reason: PAIN LEVEL > 6 Last Admin: 03/03/19 10:57 Dose: 0.5 mg Documented by: Acetaminophen (Ofirmev) 1,000 mg in 100 mls @ 200 mls/hr IV Q6HP PRN PRN Reason: PAIN/FEVER > 101 Magnesium Sulfate (Magnesium Sulfate) 2 gm in 50 mls @ 50 mls/hr IV UD PRN PRN Reason: MG = or < 1.7 Potassium Chloride 40 meq/ (Dextrose) 520 mls @ 130 mls/hr IV UD PRN PRN Reason: K+ = or < 3.5 Levothyroxine Sodium (Synthroid) 200 mcg PO QAMAC [facility] Metoprolol Succinate (Toprol Xl) 25 mg PO DAILY PRN PRN Reason: Heart Rate- High [facility] Last Admin: 03/04/19 17:56 Dose: 20 mg Documented by: Ondansetron HCl (Zofran) 4 mg IV Q4-6HP PRN PRN Reason: Nausea And Vomiting Last Admin: 03/03/19 02:17 Dose: 4 mg Documented by: Linaclotide [Linzess (] 145 Mcg Cap) 1 dose PO DAILY [facility] Riboflavin [Vitamin (B-2] 400 Mg Tab) 1 dose PO QDAY [facility] Polyethylene Glycol (Miralax) 17 gm PO DAILY [facility] Sodium Chloride (Saline Flush) 10 ml IV Q8 [facility] Last Admin: 03/04/19 14:26 Dose: 10 ml Documented by: Tamsulosin HCl (Flomax) 0.4 mg PO BID [facility] Tramadol HCl (Ultram) 50 mg PO Q6HP PRN PRN Reason: Pain Trazodone HCl (Desyrel) 100 mg PO HS [facility] Medical - PN: A/P - Time Spent With Patient Total time spent is greater than 50% in coordination of care (as documented) at patient's floor/unit and/or counseling patient: 15 - 24 minutes (1) SBO (small bowel obstruction) Status: Acute Assessment and plan: * Small bowel obstruction anastomotic site stricture on CT-clinically resolved. Multiple bowel movements. NG discontinued. Upper endoscopy does not show stricture obstruction. Started on soft diet. Advance as tolerated and possible discharge in 24 hours if patient clinically improved. We will follow-up with surgery at [facility] on discharge * Abdominal pain management-resolved * Nausea vomiting -resolved Prior medical issues-started on home medications * History of hypertension * Hypothyroidism * GERD * BPH * Anxiety disorder * Anticoagulation * Full code * Prophylaxis will be heparin, oral anticoagulation will be held at this time Plan * Advance diet as tolerated * Discharge in 24 hours Current Visit: Yes Medical - PN: Qual - VTE Deep Vein Thrombosis/Pulmonary Embolism Present on Admission: No
[2019-03-04] MEDS ORDERED: traZODone HCL 50 MG TABLET PO SCH (21:00)
[2019-03-04] MEDS: DULoxetine 30 MG CAPSULE PO SCH (21:24)
[2019-03-04] MEDS: TAMSULOSIN 0.4 MG CAPSULE PO SCH (21:24)
[2019-03-04] MEDS: APIXABAN 5 MG TABLET PO SCH (21:24)
[2019-03-04] MEDS: ASCORBIC ACID 500 MG TABLET PO SCH (21:25)
[2019-03-05 05:48] LABS: Hematocrit 34.2 % (41.0-55.0); Hemoglobin 11.5 g/dL (13.5-16.5); Mean Cell Volume 98.7 fL (80.0-100.0); Mean Corpuscular HGB Conc 33.5 g/dL (31.0-36.0); Mean Platelet Volume 7.9 fL (7.4-10.4); Platelet Count 229 K/mcL (140-440); RBC 3.46 M/mcL (4.50-5.90); Red Cell Distribution Width 13.2 % (11.5-14.5); WBC 9.6 K/mcL (4.5-11.0)
[2019-03-05 05:59] LABS: ALT/SGPT 15 U/l (0-40); AST/SGOT 14 U/l (0-37); Albumin 3.4 gm/dL (3.2-5.2); Albumin/Globulin Ratio 1.3 (1.0-2.3); Alkaline Phosphatase 112 U/L (39-117); Bilirubin,Direct < 0.2 mg/dL (0.0-0.3); Bilirubin,Total 0.4 mg/dL (0.0-1.0); Blood Urea Nitrogen 8 mg/dl (8-23); Calcium 8.6 mg/dl (8.6-10.4); Carbon Dioxide 25 mmol/L (22-30); Chloride 108 mmol/L (96-108); Globulin 2.6 gm/dL (2.2-3.7); Glomerular Filtration Rate 97; Glucose 96 mg/dL (70-105); Lactate Dehydrogenase 145 U/L (94-250); Phosphorous 3.5 mg/dL (2.7-4.5); Triglycerides 51 mg/dl (<150); Uric Acid 3.5 mg/dL (2.5-8.0)
[2019-03-05] MEDS: OMEPRAZOLE 20 MG CAPSULE PO SCH (07:06)
[2019-03-05] MEDS: 0.9 % SODIUM CHLORIDE 10 ML SYRINGE IV SCH (07:06)
[2019-03-05 07:19] LABS: Eosinophils % (Manual) 2 % (0-7); Lymphocytes % 7 % (15-49); Monocytes % (Manual) 6 % (1-12); Platelet Estimate NORMAL (NORMAL); RBC Morphology NORMAL (NORMAL); Segmented Neutrophils % 85 % (38-78)
[2019-03-05] MEDS ORDERED: LEVOTHYROXINE 100 MCG TABLET PO SCH (07:30)
[2019-03-05] MEDS: DULoxetine 30 MG CAPSULE PO SCH (08:21)
[2019-03-05] MEDS: APIXABAN 5 MG TABLET PO SCH (08:21)
[2019-03-05] MEDS: TAMSULOSIN 0.4 MG CAPSULE PO SCH (08:21)
[2019-03-05] MEDS: ASCORBIC ACID 500 MG TABLET PO SCH (08:21)
[2019-03-05] MEDS ORDERED: CYANOCOBALAMIN (VITAMIN B-12) 500 MCG TABLET PO SCH (09:00)
[2019-03-05] MEDS ORDERED: RIBOFLAVIN 400 MG PO SCH (09:00)
[2019-03-05] MEDS ORDERED: ASPIRIN 81 MG TAB.CHEW PO SCH (09:00)
[2019-03-05] MEDS ORDERED: POLYETHYLENE GLYCOL 3350 17 GM PACKET PO SCH (09:00)
--- NOTE | 2019-03-05 09:15 | Discharge Summary ---
Medical - DS: Prov Patient information: Note initiated : 03/05/19 at 9:12 am Service Date, if different from initiated Date: [] Patient: Luc Major 78 y/o M admitted on 03/02/19 for abdominal pain. Chief Complaint: [] Date of admission: 03/02/19 20:11 Discharge date: 03/05/19 Primary care physician: Samreen Mathews Consults: 03/02/19 18:30 Consult to Physician [CONS] Routine Comment: Consulting Provider: Olvin Corbin Reason For Exam: Physician to Consult Medical - DS: Meds - Discharge Medications Active and Home Medications: Home Medications Omeprazole [Prilosec] 20 mg PO BIDAC 05/29/15 [History Confirmed 03/02/19 Last Taken 03/02/19 10:00] traZODone HCL [Desyrel] 100 mg PO HS 05/29/15 [History Confirmed 03/02/19 Last Taken 06/01/15] tamsulosin 0.4 mg capsule 0.4 mg PO BID #60 cap 07/23/17 [Rx Confirmed 03/02/19 Last Taken 03/02/19 10:00] apixaban 5 mg tablet 5 mg PO BID 07/31/18 [History Confirmed 03/02/19 Last Taken 03/02/19 10:00] aspirin 81 mg chewable tablet 81 mg PO QDAY 07/31/18 [History Confirmed 03/02/19 Last Taken 03/02/19 10:00] cyanocobalamin (vitamin B-12) 500 mcg tablet 500 mcg PO QDAY 07/31/18 [History Confirmed 03/02/19 Last Taken 03/02/19 10:00] duloxetine 30 mg capsule,delayed release 30 mg PO BID 07/31/18 [History Confirmed 03/02/19 Last Taken 03/02/19 10:00] metoprolol succinate 25 mg tablet,extended release 24 hr 25 mg PO DAILY PRN 07/31/18 [History Confirmed 03/02/19 Last Taken Unknown] polyethylene glycol 3350 17 gram/dose oral powder 17 gm PO DAILY g 07/31/18 [History Confirmed 03/02/19 Last Taken 03/02/19 10:00] riboflavin (vitamin B2) 100 mg tablet 400 mg PO QDAY tab 10/29/18 [History Confirmed 03/02/19 Last Taken 03/02/19 10:00] linaclotide 145 mcg capsule 145 mcg PO DAILY cap 11/30/18 [History Confirmed 03/02/19 Last Taken 03/02/19 10:00] Ascorbate Calcium [Vitamin C] 500 mg PO BID 03/02/19 [History Confirmed 03/02/19 Last Taken 03/02/19 10:00] Levothyroxine Sodium [Euthyrox] 200 mcg PO DAILY 03/02/19 [History Confirmed 03/02/19 Last Taken 03/02/19 06:00] traMADol [Ultram] 50 mg PO Q6H PRN 03/02/19 [History Confirmed 03/02/19 Last Taken Unknown] Medical - DS: Hosp Hospital Course: Discharge diagnosis * Small bowel obstruction anastomotic site stricture on CT-clinically resolved. Multiple bowel movements. NG discontinued. Upper endoscopy no evidence of stricture. Mild gastritis noted. Advance diet as tolerated. Patient feeling well. Requesting discharge. Feels at baseline. will follow-up with surgery at [facility] on discharge * Abdominal pain management-resolved * Nausea vomiting -resolved * Hypertension management home meds * Hypothyroidism on thyroxine * GERD managed on PPI * BPH on tamsulosin * Anxiety disorder * Anticoagulation Brief hospital course Mr. Major is a 78 year old M with a history of prior bowel surgeries 2 years ago at [facility] following diverticulitis with bowel resection and subsequent anastomosis. Patient has had since recurrent episodes of abdominal pain/anastomotic site stricture with small bowel obstruction that have been managed conservatively. He has not really had a symptom-free interval over the last 2 years and has been battling intermittent abdominal pain cramping for which she takes a very specific evenly spaced diet with a modified texture. However the last 48 hours his symptoms have progressed to increasing nausea and relentless vomiting, abdominal pain 8 out of 10-10 out of 10 and has not been to take anything by mouth. His abdomen feels like a knot of air that moves with intermittent bowel spasm. He presents to the ER with above symptoms. Initial work-up was consistent with partial small bowel obstruction at the level 3-4th part of duodenum anastomotic site with dilated common bile duct 2 cm. However liver functions were within normal limits. GI was consulted along with surgery Dr. Matos at [facility] who recommended admission locally for conservative management and transfer if the patient fails to improve or deteriorates. In-house surgeon was also consulted from ER who recommends small bowel follow through in the morning. At the time of evaluation patient is fairly distressed. He is received opioids for pain. His nausea has improved. He is currently on crystalloids. NG tube was placed on intermittent low suction. He denies recent changes in medication he denies bloody emesis/cough/fever or diarrhea. He is and lives with his at [place]. No family members are present. 03/03-patient in significant discomfort. Continuing crystalloid/n.p.o. status and NG decompression. Small bowel follow-through completed this morning. Shortly following imaging patient had a large bowel movement. Nontender nondistended abdomen. Patient feels hungry. Await surgery recommendations. NG tube minimal output. No overnight fever chills. Labs within normal limits 03/04-patient doing well. Tolerating clears. EGD does not show any evidence of stricture. Patient started on soft diet post EGD. Will likely discharge in 24 hours. Dull pain nausea vomiting resolved. No concerns per staff. 03/05-patient doing well. Tolerating diet. Abdominal pain resolved. Nausea vomiting. Upper endoscopy revealed gastritis with esophagitis duodenitis and minimal stricture at the EG junction. Duodenoentrostomy is wide open as per endoscopy results. Continue diet advancement as tolerated. Follow-up with regular surgeon at [facility] as outpatient. Discharge diagnosis: . Secondary discharge diagnosis: . - Time Spent with Patient Total time spent providing and/or coordinating discharge services: Greater than 30 minutes Medical - DS: Exam - Constitutional Vitals: Vital Signs Temp Pulse Pulse Resp BP BP BP 03/05/19 07:10 98.9 F 16 106/67 03/05/19 03:25 97.7 F 85 18 116/70 03/05/19 00:22 97.8 F 80 16 138/82 03/04/19 19:55 97.9 F 78 14 125/72 03/04/19 16:00 98.0 F 62 17 107/67 03/04/19 15:11 78 18 133/78 03/04/19 15:06 76 17 124/81 03/04/19 14:36 87 11 L 137/82 03/04/19 12:00 98.5 F 68 16 113/64 Pulse Ox 03/05/19 07:10 94 03/05/19 03:25 98 03/05/19 00:22 98 03/04/19 19:55 98 03/04/19 16:00 95 03/04/19 15:11 90 03/04/19 15:06 94 03/04/19 14:36 98 03/04/19 12:00 95 Intake and Output 03/04/19 03/05/19 03/05/19 21:59 05:59 13:59 Intake Total 920 575 Output Total 150 300 Balance 770 575 -300 Intake: Oral 920 575 Output: Void Amount 150 300 Other: Meal Snack Percent of Meal Consumed 100% Feeding Ability Independent Urine Appearance Clear Urine Color Straw Urine Odor Normal Stool Size Moderate Stool Color Brown Stool Consistency Liquid Watery # Voids 1 Weight 143 lb Medical - DS: Data Labs on day of discharge: Labs from last 24 hours 03/05/19 03/05/19 03/04/19 03:50 03:50 04:05 WBC 9.6 RBC 3.46 L Hgb 11.5 L Hct 34.2 L MCV 98.7 MCH 33.1 MCHC 33.5 RDW 13.2 Plt Count 229 MPV 7.9 Total Counted 100 100 Seg Neutrophils % 85 H 69 Band Neutrophils % Not Reportable Lymphocytes % 7 L 20 Monocytes % (Manual) 6 9 Eosinophils % (Manual) 2 2 Platelet Estimate Normal Normal RBC Morphology Normal Normal Sodium 143 Potassium 3.3 Chloride 108 Carbon Dioxide 25 Anion Gap 10.0 BUN 8 Creatinine 0.6 L GFR Calculation 97 Glucose 96 Uric Acid 3.5 Calcium 8.6 Phosphorus 3.5 Magnesium 2.0 Total Bilirubin 0.4 Direct Bilirubin < 0.2 GGT 11 AST 14 ALT 15 Alkaline Phosphatase 112 Lactate Dehydrogenase 145 Total Protein 6.0 Albumin 3.4 Globulin 2.6 Albumin/Globulin Ratio 1.3 Triglycerides 51 Medical - DS: A/P - Patient/Caregiver Discharge Instructions Activity: increase activity as tolerated Diet: Regular Diet Additional Instructions: Return to ER if worsening abdominal pain nausea vomiting noted Continue PPI - Follow up Plan Follow up with: Ja Bergeron MD [Physician] - Samreen Mathews I, PA-C [Primary Care Provider] - Jada Carr MD [Physician] - Disposition: Home, Self-Care Prognosis: Fair Rehab Potential: Fair I certify that the patient requires SNF services: No Overall status at discharge: patient is back to baseline Medical - DS: Qual - VTE Deep Vein Thrombosis/Pulmonary Embolism Present on Admission: No
== END 2019-03-05 10:00 | disposition home or self-care (01) | DRG 999 ==
LOC: ED 13:59 → MEDSUR 20:11
PROVIDERS: ADMIT Internal Medicine; ATTEND Internal Medicine

== ENCOUNTER 2019-03-20 15:04 | Inpatient (IN) ==
[2019-03-20] MEDS ORDERED: ONDANSETRON 4 MG/2 ML VIAL IV ONE (15:26)
--- NOTE | 2019-03-20 15:30 | Emergency Department Note ---
Abdominal Pain HPI - General Chief Complaint: Abdominal Pain Stated Complaint: Abd pain Source: patient, family Mode of arrival: wheelchair Limitations: no limitations - History of Present Illness HPI Narrative: Presents to ED with history of mid epigastric abdominal pain and periumbilical abdominal pain starting about 1 hour ago. He states his pain is very severe and intense at times then lets up a little. Denies any hernia. 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 He was last hospitalized 2 weeks ago at which time he had a bowel obstruction, had EGD done had endoscopy done and no stricture was identified. H is symptoms resolved conservatively but now he has the same symptoms back again and. He does have nausea last bowel movement was this morning and had a normal stool. Denies blood in the stool, denies hematemesis, chest pain 2 days ago. Which was left-sided and seemed to radiate through to the back. No history of coronary disease with he does have atrial fibrillation, currently on elibertha PARKS Complaint: abdominal pain - Related Data Home Medications Medication Instructions Recorded Confirmed Omeprazole [Prilosec] 20 mg PO BIDAC 05/29/15 03/09/19 traZODone HCL [Desyrel] 150 mg PO HS 05/29/15 03/20/19 apixaban 5 mg tablet 5 mg PO BID 07/31/18 03/20/19 aspirin 81 mg chewable tablet 81 mg PO QDAY 07/31/18 03/20/19 cyanocobalamin (vitamin B-12) 500 500 mcg PO QDAY 07/31/18 03/20/19 mcg tablet duloxetine 30 mg capsule,delayed 30 mg PO BID 07/31/18 03/20/19 release metoprolol succinate 25 mg 25 mg PO DAILY PRN 07/31/18 03/20/19 tablet,extended release 24 hr polyethylene glycol 3350 17 17 gm PO DAILY g 07/31/18 03/20/19 gram/dose oral powder riboflavin (vitamin B2) 100 mg 400 mg PO QDAY tab 10/29/18 03/20/19 tablet linaclotide 145 mcg capsule 145 mcg PO DAILY cap 11/30/18 03/20/19 Ascorbate Calcium [Vitamin C] 500 mg PO BID 03/02/19 03/20/19 Levothyroxine Sodium [Euthyrox] 200 mcg PO DAILY 03/02/19 03/20/19 traMADol [Ultram] 50 mg PO Q6H PRN 03/02/19 03/20/19 Previous Rx's Medication Instructions Recorded tamsulosin 0.4 mg capsule 0.4 mg PO BID #60 cap 07/23/17 Allergies Allergy/AdvReac Type Severity Reaction Status Date / Time hydrocodone AdvReac Mild constipatio Verified 03/20/19 15:08 n Review of Systems All systems ED: reviewed and negative except as stated. Abdominal Pain PMH - Past Medical History Medical history: Reports: atrial fibrillation, GERD, hypertension, other (hist ory of multiple abdominal diverticuli) Reports: peptic ulcer disease Surgical history ED: Reports: prostatectomy, other (status post bowel resection x2, status post prostate vaporization) Psychiatric history: Reports: no psych history Family history: Reports: non-contributory - Social History Smoking status: Never smoker Alcohol use: Reports: None Drug use: Reports: none Physical Exam Limitations: no limitations General appearance: alert, in distress Head: atraumatic, normocephalic, normal inspection Eye: Present: normal appearance, PERRL, EOMI. Absent: scleral icterus, conjunctival injection ENT: Present: normal exam, normal oropharynx, mucous membranes moist, TM's normal bilaterally. Absent: normal external ear exam Neck: Present: normal inspection, full ROM, trachea midline. Absent: tenderness, meningismus, lymphadenopathy Chest: Present: normal inspection, symmetric chest wall rise. Absent: tenderness Respiratory: Present: normal lung sounds bilaterally. Absent: respiratory distress, rales/crackles, wheezes Cardiovascular: Present: regular rate, normal rhythm, normal heart sounds Abdominal: Present: soft, tenderness, normal bowel sounds. Absent: distention, guarding : Present: normal inspection. Absent: testicular tenderness Extremities: Present: normal inspection, full ROM. Absent: tenderness Back: Absent: CVA tenderness (R), CVA tenderness (L), vertebral tenderness Neurological: Present: alert, oriented X3, CN II-XII intact Psychiatric: Present: normal affect, normal mood Skin: Present: warm, dry, normal color. Absent: rash, hives, cyanosis, diaphoresis, erythema, pallor Course - Reevaluation(s) Reevaluation #1: Discussed with Dr. Carr at. At this point we'll admit him to hospital for further monitoring, bowel rest and IV hydration. Vital Signs Temperature 96.8 F L 03/20/19 15:04 Pulse Rate 106 H 03/20/19 15:04 Respiratory Rate 22 03/20/19 15:04 Blood Pressure 149/93 03/20/19 15:04 Pulse Oximetry (%) 99 03/20/19 15:04 Temperature 96.8 F L 03/20/19 15:04 Pulse Rate 80 03/20/19 17:16 Respiratory Rate 15 03/20/19 17:16 Blood Pressure 127/99 03/20/19 17:31 Pulse Oximetry (%) 95 03/20/19 17:16 Abdominal Pain - MDM Narrative Medical decision making narrative: Impression is multiple air-fluid levels consistent with bowel obstruction. - Lab Data Lab results reviewed: Yes I reviewed the patient's lab results. Result diagrams: 03/20/19 15:30 03/20/19 15:30 Lab Results 03/20/19 03/20/19 03/20/19 Range/Units 15:30 15:30 15:30 WBC 6.6 (4.5-11.0) K/mcL RBC 4.26 L (4.50-5.90) M/mcL Hgb 13.7 (13.5-16.5) g/dL Hct 41.6 (41.0-55.0) % MCV 97.6 (80.0-100.0) fL MCH 32.2 (26.0-34.0) pg MCHC 33.0 (31.0-36.0) g/dL RDW 13.2 (11.5-14.5) % Plt Count 337 (140-440) K/mcL MPV 8.5 (7.4-10.4) fL Gran % 74.8 (38.0-78.0) % Lymph % (Auto) 14.9 L (15.5-49.0) % [place] % (Auto) 8.8 (1.0-12.0) % Eos % (Auto) 0.8 (0.0-7.0) % Baso % (Auto) 0.7 (0.0-2.0) % Gran # 4.9 (1.8-8.0) K/mcL Lymph # (Auto) 1.0 L (1.5-4.8) K/mcL [place] # (Auto) 0.6 (0.1-0.9) K/mcL Eos # (Auto) 0.1 (0.0-0.7) K/mcL Baso # (Auto) 0 (0.0-0.3) K/mcL PT 15.2 H (11.9-14.5) sec INR 1.2 H (0.9-1.1) VBG Lactic Acid (0.5-2.0) mmol/L Sodium 137 (133-145) mmol/L Potassium 4.1 (3.3-5.1) mmol/L Chloride 97 (96-108) mmol/L Carbon Dioxide 26 (22-30) mmol/L Anion Gap 14.0 (8-16) BUN 20 (8-23) mg/dl Creatinine 0.7 (0.7-1.2) mg/dl GFR Calculation 91 Glucose 93 (70-105) mg/dL Calcium 9.5 (8.6-10.4) mg/dl Total Bilirubin 0.2 (0.0-1.0) mg/dL AST 26 (0-37) U/l ALT 19 (0-40) U/l Alkaline Phosphatase 123 H (39-117) U/L C-Reactive Protein < 0.3 (0.0-0.8) mg/dl Total Protein 7.7 (5.9-8.4) gm/dL Albumin 4.1 (3.2-5.2) gm/dL Globulin 3.6 (2.2-3.7) gm/dL Albumin/Globulin Ratio 1.1 (1.0-2.3) Lipase 20 (7-60) U/L 03/20/19 Range/Units 15:35 WBC (4.5-11.0) K/mcL RBC (4.50-5.90) M/mcL Hgb (13.5-16.5) g/dL Hct (41.0-55.0) % MCV (80.0-100.0) fL MCH (26.0-34.0) pg MCHC (31.0-36.0) g/dL RDW (11.5-14.5) % Plt Count (140-440) K/mcL MPV (7.4-10.4) fL Gran % (38.0-78.0) % Lymph % (Auto) (15.5-49.0) % [place] % (Auto) (1.0-12.0) % Eos % (Auto) (0.0-7.0) % Baso % (Auto) (0.0-2.0) % Gran # (1.8-8.0) K/mcL Lymph # (Auto) (1.5-4.8) K/mcL [place] # (Auto) (0.1-0.9) K/mcL Eos # (Auto) (0.0-0.7) K/mcL Baso # (Auto) (0.0-0.3) K/mcL PT (11.9-14.5) sec INR (0.9-1.1) VBG Lactic Acid 2.8 H (0.5-2.0) mmol/L Sodium (133-145) mmol/L Potassium (3.3-5.1) mmol/L Chloride (96-108) mmol/L Carbon Dioxide (22-30) mmol/L Anion Gap (8-16) BUN (8-23) mg/dl Creatinine (0.7-1.2) mg/dl GFR Calculation Glucose (70-105) mg/dL Calcium (8.6-10.4) mg/dl Total Bilirubin (0.0-1.0) mg/dL AST (0-37) U/l ALT (0-40) U/l Alkaline Phosphatase (39-117) U/L C-Reactive Protein (0.0-0.8) mg/dl Total Protein (5.9-8.4) gm/dL Albumin (3.2-5.2) gm/dL Globulin (2.2-3.7) gm/dL Albumin/Globulin Ratio (1.0-2.3) Lipase (7-60) U/L - Radiology Data Radiology results reviewed: Yes I reviewed the patient's radiology results. Disposition Pt seen by MULTIPLE KNIFE EDGE TRIMMER OPERATOR/PA only: No Clinical Impression: Abdominal pain, SBO (small bowel obstruction) Disposition: Xfer As Inpt ([facility]) Condition: Fair Referrals: Samreen Mathews PA-C [Primary Care Provider] -
[2019-03-20] MEDS: HYDROmorphone 2 MG/ML VIAL IV PRN ×4 (15:40→21:57)
[2019-03-20 16:20] LABS: Basophils # (Auto) 0 K/mcL (0.0-0.3); Basophils % (Auto) 0.7 % (0.0-2.0); Eosinophils # (Auto) 0.1 K/mcL (0.0-0.7); Eosinophils % (Auto) 0.8 % (0.0-7.0); Granulocytes % (Auto) 74.8 % (38.0-78.0); Hematocrit 41.6 % (41.0-55.0); Hemoglobin 13.7 g/dL (13.5-16.5); Lymphocytes % (Auto) 14.9 % (15.5-49.0); Mean Cell Volume 97.6 fL (80.0-100.0); Mean Platelet Volume 8.5 fL (7.4-10.4); Monocytes # (Auto) 0.6 K/mcL (0.1-0.9); Monocytes % (Auto) 8.8 % (1.0-12.0); Platelet Count 337 K/mcL (140-440); RBC 4.26 M/mcL (4.50-5.90); Red Cell Distribution Width 13.2 % (11.5-14.5); WBC 6.6 K/mcL (4.5-11.0)
[2019-03-20 16:36] LABS: ALT/SGPT 19 U/l (0-40); AST/SGOT 26 U/l (0-37); Albumin 4.1 gm/dL (3.2-5.2); Albumin/Globulin Ratio 1.1 (1.0-2.3); Alkaline Phosphatase 123 U/L (39-117); Bilirubin,Total 0.2 mg/dL (0.0-1.0); Blood Urea Nitrogen 20 mg/dl (8-23); C-Reactive Protein < 0.3 mg/dl (0.0-0.8); Calcium 9.5 mg/dl (8.6-10.4); Carbon Dioxide 26 mmol/L (22-30); Chloride 97 mmol/L (96-108); Globulin 3.6 gm/dL (2.2-3.7); Glomerular Filtration Rate 91; Glucose 93 mg/dL (70-105)
[2019-03-20 16:40] LABS: INR 1.2 (0.9-1.1); Prothrombin Time 15.2 sec (11.9-14.5)
--- NOTE | 2019-03-20 16:43 | XRay Report ---
HISTORY: Abdominal pain FINDINGS: There are multiple loops of dilated small intestine throughout the abdomen and pelvis which contain air-fluid levels. They measure up to 4.9 cm in transverse diameter. There is some air and stool in nondilated colon. No free intra-abdominal air is present. There are clips in the gallbladder fossa. No mass is identified. Vascular calcifications are present in the abdomen and pelvis. IMPRESSION: Small bowel obstruction Interpreted and Authenticated by: Barney Fuchs 03/20/19
[2019-03-20] MEDS ORDERED: LACTATED RINGERS 1,000 ML IV ONE (16:51)
[2019-03-20] MEDS ORDERED: ACETAMINOPHEN 325 MG TABLET PO PRN (17:52)
[2019-03-20] MEDS ORDERED: ONDANSETRON 4 MG/2 ML VIAL IV PRN (17:52)
[2019-03-20 18:40] LABS: Appearance,Urine HAZY; Bacteria,Urine 0 /hpf (0); Bilirubin,Urine NEG (NEG); Color,Urine AMBER; Culture Indicated,Urine NO; Glucose,Urine (UA) NEGATIVE (NEG); Ketones,Urine NEG (NEG); Leukocyte Esterase,Urine NEG /uL (NEG); Mucus,Urine MANY /hpf (0); Nitrate,Urine NEG (NEG); Protein,Urine 30 mg/dL (NEG); Specific Gravity,Urine 1.025 (1.000-1.035); Urine Blood NEG mg/dL (<0.03); Urine RBC 100 /hpf (0-1); Urine Squamous Epithelial Cell 0 /hpf (0-4); Urine WBC 1 /hpf (0-4); Urobilinogen,Urine NEG (NEG)
[2019-03-20] MEDS ORDERED: PROMETHAZINE 25 MG/ML VIAL IV PRN (21:12)
[2019-03-20] MEDS ORDERED: LORazepam 2 MG/ML VIAL IV PRN (21:15)
[2019-03-20] MEDS: 0.9 % SODIUM CHLORIDE 1,000 ML IV SCH (21:56)
[2019-03-20] MEDS: METOCLOPRAMIDE 10 MG/2 ML VIAL IV SCH (21:56)
[2019-03-21] MEDS: HYDROmorphone 2 MG/ML VIAL IV PRN ×5 (00:12→15:50)
[2019-03-21] MEDS: METOCLOPRAMIDE 10 MG/2 ML VIAL IV SCH ×4 (03:59→21:42)
[2019-03-21] MEDS: 0.9 % SODIUM CHLORIDE 1,000 ML IV SCH ×3 (06:07→21:43)
[2019-03-21] MEDS: ESOMEPRAZOLE 40 MG VIAL IV SCH ×2 (08:05→17:04)
--- NOTE | 2019-03-21 08:29 | XRay Report ---
HISTORY: Nasogastric tube insertion FINDINGS: there is a nasogastric tube positioned with the tip in the fundus of the stomach pointing towards the left lateral abdominal wall. There are multiple loops of dilated small intestine throughout the abdomen. There is also air in stomach and colon. No free intra-abdominal air is seen on this supine study. The dilated small intestine has not changed significantly from the earlier study done at 16:27 on the same date. IMPRESSION: well-positioned nasogastric tube Small bowel obstruction Interpreted and Authenticated by: Barney Fuchs 03/21/19
--- NOTE | 2019-03-21 09:02 | XRay Report ---
HISTORY: Small bowel obstruction and attempted insertion of a nasogastric tube FINDINGS: The tip of the nasogastric tube is in the mediastinum pointing inferiorly, at the level of the aortic arch. There is a chronic calcified granuloma laterally in the right mid thorax. The lungs are otherwise clear and well expanded. Patient has a hiatus hernia with an air-fluid level. Several air-fluid levels are seen in the small intestine in the upper abdomen. No congestive heart failure is present. The heart size is normal. 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 IMPRESSION: Nasogastric tube in the proximal thoracic esophagus Interpreted and Authenticated by: Barney Fuchs 03/21/19
--- NOTE | 2019-03-21 09:04 | XRay Report ---
HISTORY: Small bowel obstruction FINDINGS: Nasogastric tube has been advanced. The tip is in the fundus of the stomach pointing towards the left lateral abdominal wall. There are multiple air-fluid levels in dilated loops of small intestine throughout the abdomen and pelvis. The stomach is decompressed. There is some air and stool in nondilated colon. No free intra-abdominal air is present. Patient has a hiatus hernia. IMPRESSION: Small bowel obstruction Well-positioned nasogastric tube Interpreted and Authenticated by: Barney Fuchs 03/21/19
--- NOTE | 2019-03-21 16:08 | General Surg History&Physical ---
History of Present Illness Patient information: Note initiated : 03/21/19 at 4:08 pm Service Date, if different from initiated Date: [] Patient: Luc Major 78 y/o M admitted on 03/20/19 for Abd pain. Chief Complaint: [] HPI: Mr. Major is a 78 year old M admitted with suspected partial small bowel obstruction. The patient has a long history of abdominal pain dating back to the late 1990s. He was followed for many years and subsequently underwent small bowel resection in 2016 in 2017. According to available notes about 6 feet of small bowel were said to be removed with the major portion of the bowel began in the duodenum and jejunum. He has presented with small bowel obstructions in the past. He has been followed by [employer] locally. 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 He did not have vomiting or diarrhea. Patient has had a recent gastric emptying study that was normal. He had a CT done in the emergency room which showed a distended stomach and proximal duodenum with a strictured area at the junction of the third and fourth portions of the duodenum at the level of the prior anastomosis. CT confirms that the distal small bowel and colon are unremarkable. Patient is admitted and will be treated with nasogastric decompression and will undergo a small bowel follow. It is not probable that he will need to have operative therapy. He was recently admitted on 917 07/25/192018 for the same difficulty Review of Systems - Constitutional anorexia, malaise, weakness, weight loss - EENT Nose, mouth and throat: no abnormal hearing, no dizziness, no headache(s), no hoarseness - Cardiovascular no chest pain at rest, no diaphoresis, no palpatations, no rapid heart rate, no syncope - Respiratory no cough, no dyspnea on exertion, no pain with cough - Gastrointestinal as per HPI, abdominal pain, belching, bloating, change in bowel habits, cramping, dyspepsia, early satiety, heartburn, nausea, vomiting - Genitourinary no dysuria, no urinary frequency, no urinary hesitancy, no urinary incontinence - Musculoskeletal no abnormal gait, no back pain, no numbness, no tingling - Integumentary no pruritus, no rash - Neurological no confusion, no convulsions, no dizziness, no restless legs, no tremor(s) - Psychiatric anxiety, depression - Endocrine fatigue, no palpitations - Hematologic/Lymphatic no easy bleeding, no easy bruising, no lymphadenopathy - Allergic/Immunologic no tongue swelling, no throat swelling, no uticaria, no wheezing, no lip swelling Past History Past medical history: History of SVT. History of BPH with bladder outlet obstruction, history of kidney stones, prior history of diverticulosis, degenerative joint disease, Past surgical history: Cholecystectomy. History of small bowel resection. 2017 in 2018 History of photo vaporization of prostate Past family history: Uterine malignancy. Heart disease Past social history: Never tobacco use. Denies drug use. Occasional use of alcohol Medications and Allergies Home Medications Medication Instructions Recorded Confirmed Type traZODone HCL [Desyrel] 150 mg PO HS 05/29/15 04/01/19 History tamsulosin 0.4 mg capsule 0.4 mg PO BID #60 cap 07/23/17 04/01/19 Rx apixaban 5 mg tablet 5 mg PO BID 07/31/18 04/01/19 History aspirin 81 mg chewable tablet 81 mg PO QDAY 07/31/18 04/01/19 History cyanocobalamin (vitamin B-12) 500 1,000 mcg PO QDAY 07/31/18 04/01/19 History mcg tablet duloxetine 30 mg capsule,delayed 30 mg PO TID 07/31/18 04/01/19 History release metoprolol succinate 25 mg 25 mg PO DAILY PRN 07/31/18 04/01/19 History tablet,extended release 24 hr polyethylene glycol 3350 17 17 gm PO BIDP PRN g 07/31/18 04/01/19 History gram/dose oral powder riboflavin (vitamin B2) 100 mg 400 mg PO QDAY tab 10/29/18 04/01/19 History tablet linaclotide 145 mcg capsule 145 mcg PO DAILY cap 11/30/18 04/01/19 History Ascorbate Calcium [Vitamin C] 500 mg PO DAILY 03/02/19 04/01/19 History Levothyroxine Sodium [Euthyrox] 200 mcg PO AC 03/02/19 04/01/19 History traMADol [Ultram] 50 mg PO Q6H PRN 03/02/19 04/01/19 History LORazepam [Ativan] 0.5 mg PO BID 03/20/19 04/01/19 History Allergies Allergy/AdvReac Type Severity Reaction Status Date / Time No Known Drug Allergies Allergy Verified 04/01/19 14:37 Exam Temp Pulse Resp BP Pulse Ox 98.5 F 83 16 120/75 96 03/21/19 15:57 03/21/19 04:00 03/21/19 15:57 03/21/19 15:57 03/21/19 15:57 - General physical appearance well developed, well nourished, moderate distress, moderate pain, other (very anxious) - Eyes PERRL, normal ocular movement - ENT normal pinna, normal nares, no hearing loss, no congestion, other (dry oral mucosa) - Head Head exam IM: Present: atraumatic, normocephalic - Neck no masses, no bruits, trachea midline, no lymphadenopathy, no venous distension - Cardiovascular Cardiovascular exam IM: Present: normal rate and rhythm - Respiratory normal expansion, normal respiratory effort, clear to percussion, clear to auscultation - Abdomen Abdomen: Present: soft, non tender, bowel sounds, surgical scars (healed midline surgical scar without tenderness), distended (moderate distention; hyperactive bowel sounds) Hernia: Present: none - Genitourinary Present: normal penis with no external lesions - Integumentary Present: no rash, no growths, no abnormal pigmentation - Neurologic Present: normal coordination, normal sensation - Musculoskeletal Present: normal gait, normal posture - Psychiatric Present: oriented to time, oriented to person, oriented to place, speech is normal, memory intact Assessment and Plan (1) Abdominal pain Treat symptomatically. Follow-up diagnostic studies Status: Acute (2) Partial obstruction of small intestine Small bowel follow-through. Nasogastric decompression. Metoclopramide 10 mg every 6 hours when necessary MiraLAX as tolerated Status: Acute
[2019-03-22] MEDS: HYDROmorphone 2 MG/ML VIAL IV PRN ×5 (01:15→23:45)
[2019-03-22] MEDS: METOCLOPRAMIDE 10 MG/2 ML VIAL IV SCH ×4 (03:15→23:46)
[2019-03-22] MEDS: 0.9 % SODIUM CHLORIDE 1,000 ML IV SCH ×3 (05:43→21:02)
[2019-03-22] MEDS: ESOMEPRAZOLE 40 MG VIAL IV SCH ×2 (06:50→17:38)
[2019-03-22 07:06] LABS: Basophils # (Auto) 0 K/mcL (0.0-0.3); Basophils % (Auto) 0.3 % (0.0-2.0); Eosinophils # (Auto) 0.1 K/mcL (0.0-0.7); Eosinophils % (Auto) 1.7 % (0.0-7.0); Granulocytes % (Auto) 77.2 % (38.0-78.0); Hematocrit 34.2 % (41.0-55.0); Hemoglobin 11.6 g/dL (13.5-16.5); Lymphocytes # (Auto) 0.6 K/mcL (1.5-4.8); Lymphocytes % (Auto) 10.2 % (15.5-49.0); Mean Cell Volume 97.1 fL (80.0-100.0); Mean Corpuscular HGB Conc 33.8 g/dL (31.0-36.0); Mean Platelet Volume 8.4 fL (7.4-10.4); Monocytes # (Auto) 0.6 K/mcL (0.1-0.9); Monocytes % (Auto) 10.6 % (1.0-12.0); Platelet Count 262 K/mcL (140-440); RBC 3.52 M/mcL (4.50-5.90); Red Cell Distribution Width 12.9 % (11.5-14.5); WBC 5.9 K/mcL (4.5-11.0)
--- NOTE | 2019-03-22 08:32 | XRay Report ---
CLINICAL INFORMATION: FOLLOW -UP OF SMALL BOWEL OBSTRUCTION COMPARISON: 03/21/2019 FINDINGS: NG tube tip remains in the gastric fundus region. Small bowel has returned to normal caliber and there is now more gas and stool in the distal small bowel and colon. No free air. IMPRESSION: Interval resolution of partial small bowel obstruction. Interpreted and Authenticated by: Nahid Sandoval 03/22/19
[2019-03-22] MEDS ORDERED: PNEUMOCOCCAL 23-VAL P-SAC VAC 0.5 ML SYRINGE IM ONE (10:00)
[2019-03-22] MEDS ORDERED: FLU VACC QS2019-20(6MOS UP)/PF 60 MCG/0.5 ML SYRINGE IM ONE (10:15)
[2019-03-22] MEDS ORDERED: METOCLOPRAMIDE 10 MG/2 ML VIAL IV SCH (12:15)
[2019-03-22] MEDS ORDERED: CALCIUM CARBONATE 500 MG TAB.CHEW CHEWED PRN (12:41)
--- NOTE | 2019-03-22 13:21 | General Surgery Progress Note ---
Subjective Patient reports: feels better, still having pain, pain is less, flatus, no bowel movement, nausea, afebrile Narrative: Note initiated : 03/22/19 at 1:19 pm Service Date, if different from initiated Date: [] Patient: Luc Major 78 y/o M admitted on 03/20/19 for Abd pain. Chief Complaint: [] Patient states that he feels better. He's had large-volume flatus but no bowel movement. His abdomen is softer and he has much less pain. White blood count 5.9, hemoglobin 11.6, hematocrit 34.2. Abdominal x-ray shows movement of contrast into the large bowel with decrease in distention of the small bowel. Objective Temp Pulse Resp BP Pulse Ox 97.8 F 80 18 130/70 93 03/22/19 12:00 03/22/19 12:00 03/22/19 12:00 03/22/19 12:00 03/22/19 12:00 - Additional Data Intake & Output - Last 24 hours: Intake & Output 03/20/19 03/21/19 03/22/19 03/23/19 05:59 05:59 05:59 05:59 Intake Total 2000 3096 0 Output Total 1600 1650 Balance 400 1446 0 Weight 142 lb 142 lb 12.8 oz 142 lb 12.8 oz - General physical appearance well developed, well nourished, no distress - Eyes PERRL, normal ocular movement - ENT normal pinna, normal nares, normal mucosa, no congestion, decreased hearing - Neck no masses, no bruits, trachea midline, no lymphadenopathy, no venous distension - Respiratory normal expansion, normal respiratory effort, clear to auscultation - Cardiovascular Cardiovascular exam: Present: normal rate and rhythm, RRR, +S1, +S2. Absent: JVD, tachycardia - Abdomen non tender (no tenderness noted), bowel sounds (good active bowel sounds), surgical scars (none), masses (none), distended (no abdominal distention noted) - Integumentary no rash, no growths, no abnormal pigmentation - Neurologic normal coordination, normal sensation - Musculoskeletal normal gait, normal posture - Psychiatric oriented to time, oriented to person, oriented to place, speech is normal, memory intact - Labs 03/22/19 05:13 03/20/19 15:30 Assessment and Plan (1) Partial obstruction of small intestine Status: Acute Assessment and plan: Discontinue nasogastric tube Clear liquid diet MiraLAX 4 doses Check abdominal x-rays in the morning Check serum lactate in the morning Current Visit: Yes - Time Spent With Patient Total time spent is greater than 50% in coordination of care (as documented) at patient's floor/unit and/or counseling patient:
[2019-03-22] MEDS: POLYETHYLENE GLYCOL 3350 17 GM PACKET PO SCH ×3 (14:38→21:02)
[2019-03-23] MEDS: POLYETHYLENE GLYCOL 3350 17 GM PACKET PO SCH ×3 (03:09→23:53)
[2019-03-23] MEDS: HYDROmorphone 2 MG/ML VIAL IV PRN ×2 (03:18→13:08)
[2019-03-23 05:45] LABS: Basophils # (Auto) 0 K/mcL (0.0-0.3); Basophils % (Auto) 0.4 % (0.0-2.0); Eosinophils # (Auto) 0.1 K/mcL (0.0-0.7); Eosinophils % (Auto) 1.7 % (0.0-7.0); Granulocytes % (Auto) 74.7 % (38.0-78.0); Hematocrit 31.9 % (41.0-55.0); Hemoglobin 10.9 g/dL (13.5-16.5); Lymphocytes # (Auto) 0.6 K/mcL (1.5-4.8); Mean Cell Volume 97.3 fL (80.0-100.0); Mean Corpuscular HGB Conc 34.1 g/dL (31.0-36.0); Mean Platelet Volume 7.9 fL (7.4-10.4); Monocytes # (Auto) 0.8 K/mcL (0.1-0.9); Monocytes % (Auto) 13.2 % (1.0-12.0); Platelet Count 252 K/mcL (140-440); RBC 3.27 M/mcL (4.50-5.90); Red Cell Distribution Width 13.1 % (11.5-14.5); WBC 5.7 K/mcL (4.5-11.0)
[2019-03-23] MEDS: 0.9 % SODIUM CHLORIDE 1,000 ML IV SCH ×3 (05:49→17:15)
[2019-03-23] MEDS: METOCLOPRAMIDE 10 MG/2 ML VIAL IV SCH ×4 (05:49→23:53)
[2019-03-23] MEDS: ESOMEPRAZOLE 40 MG VIAL IV SCH ×2 (07:58→17:12)
--- NOTE | 2019-03-23 08:18 | XRay Report ---
CLINICAL INFORMATION: FOLLOW -UP OF SMALL BOWEL OBSTRUCTION COMPARISON: 03/22/2019 FINDINGS: Stomach, small and large bowel show minimal symmetric dilatation compatible with mild ileus. No evidence of recurrent small bowel obstruction. No free air, soft tissue mass, organomegaly or pathologic calcification. IMPRESSION: Mild ileus - no evidence recurrent small bowel obstruction Interpreted and Authenticated by: Nahid Sandoval 03/23/19
[2019-03-23 09:51] LABS: ALT/SGPT 11 U/l (0-40); AST/SGOT 13 U/l (0-37); Albumin 3.5 gm/dL (3.2-5.2); Albumin/Globulin Ratio 1.2 (1.0-2.3); Alkaline Phosphatase 105 U/L (39-117); Bilirubin,Direct < 0.2 mg/dL (0.0-0.3); Bilirubin,Total 0.3 mg/dL (0.0-1.0); Blood Urea Nitrogen 11 mg/dl (8-23); Calcium 8.6 mg/dl (8.6-10.4); Carbon Dioxide 25 mmol/L (22-30); Chloride 105 mmol/L (96-108); Globulin 2.9 gm/dL (2.2-3.7); Glomerular Filtration Rate 105; Glucose 96 mg/dL (70-105); Lactate Dehydrogenase 161 U/L (94-250); Phosphorous 2.5 mg/dL (2.7-4.5); Triglycerides 50 mg/dl (<150); Uric Acid 3.9 mg/dL (2.5-8.0)
[2019-03-23] MEDS ORDERED: POLYETHYLENE GLYCOL 3350 17 GM PACKET PO SCH (14:00)
[2019-03-23] MEDS ORDERED: POLYETHYLENE GLYCOL 3350 17 GM PACKET PO ONE (14:00)
--- NOTE | 2019-03-23 14:38 | General Surgery Progress Note ---
Subjective Patient reports: feels better, pain is less, tolerating liquids well, flatus, bowel movement, afebrile Narrative: Note initiated : 03/23/19 at 2:36 pm Service Date, if different from initiated Date: [] Patient: Luc Major 78 y/o M admitted on 03/20/19 for Abd pain. Chief Complaint: [patient is doing well. He's had multiple bowel movements and pass copious amounts of flatus. He has some occasional crampy abdominal pain but he does not have distention. He is tolerating liquid diet without diff iculty. White blood count 5.7, hemoglobin 10.9, hematocrit 31.9, sedimentation rate 24, lactic acid 0.9, potassium 3.7, phosphorus 2.5, pro calcitonin less than 0.05] Objective Temp Pulse Resp BP Pulse Ox 98.3 F 65 16 123/75 95 03/23/19 11:12 03/23/19 11:12 03/23/19 11:12 03/23/19 11:12 03/23/19 11:12 - Additional Data Intake & Output - Last 24 hours: Intake & Output 03/21/19 03/22/19 03/23/19 03/24/19 05:59 05:59 05:59 05:59 Intake Total 1999 3096 4474 717 Output Total 1600 1650 1075 475 Balance 400 1446 3399 242 Weight 142 lb 142 lb 12.8 oz 151 lb 6.4 oz - General physical appearance well developed, well nourished, no distress - Eyes PERRL, normal ocular movement - ENT normal pinna, normal nares, normal mucosa, no congestion, decreased hearing - Neck no masses, no bruits, trachea midline, no lymphadenopathy, no venous distension - Respiratory normal expansion, normal respiratory effort, clear to auscultation - Cardiovascular Cardiovascular exam: Present: normal rate and rhythm, RRR, +S1, +S2. Absent: tachycardia - Abdomen non tender (no tenderness noted; good active bowel sounds; no distention), bowel sounds (present), surgical scars (none), masses (none) - Integumentary no rash, no growths, no abnormal pigmentation - Neurologic normal coordination, normal sensation - Musculoskeletal normal gait, normal posture - Psychiatric other ( mild intermittent disorientation but with quick reorientation to person place and time; patient is aware of his mental lapses easily corrects) - Labs 03/23/19 04:17 03/23/19 07:55 Diabetes panel 03/23/19 Range/Units 07:55 Sodium 140 (133-145) mmol/L Potassium 3.7 (3.3-5.1) mmol/L Chloride 105 (96-108) mmol/L Carbon Dioxide 25 (22-30) mmol/L BUN 11 (8-23) mg/dl Creatinine 0.5 L (0.7-1.2) mg/dl Glucose 96 (70-105) mg/dL Calcium 8.6 (8.6-10.4) mg/dl AST 13 (0-37) U/l ALT 11 (0-40) U/l Alkaline Phosphatase 105 (39-117) U/L Total Protein 6.4 (5.9-8.4) gm/dL Albumin 3.5 (3.2-5.2) gm/dL Triglycerides 50 (<150) mg/dl Calcium panel 03/23/19 Range/Units 07:55 Calcium 8.6 (8.6-10.4) mg/dl Phosphorus 2.5 L (2.7-4.5) mg/dL Albumin 3.5 (3.2-5.2) gm/dL Pituitary panel 03/23/19 Range/Units 07:55 Sodium 140 (133-145) mmol/L Potassium 3.7 (3.3-5.1) mmol/L Chloride 105 (96-108) mmol/L Carbon Dioxide 25 (22-30) mmol/L BUN 11 (8-23) mg/dl Creatinine 0.5 L (0.7-1.2) mg/dl Glucose 96 (70-105) mg/dL Calcium 8.6 (8.6-10.4) mg/dl Adrenal panel 03/23/19 Range/Units 07:55 Sodium 140 (133-145) mmol/L Potassium 3.7 (3.3-5.1) mmol/L Chloride 105 (96-108) mmol/L Carbon Dioxide 25 (22-30) mmol/L BUN 11 (8-23) mg/dl Creatinine 0.5 L (0.7-1.2) mg/dl Glucose 96 (70-105) mg/dL Calcium 8.6 (8.6-10.4) mg/dl Total Bilirubin 0.3 (0.0-1.0) mg/dL AST 13 (0-37) U/l ALT 11 (0-40) U/l Alkaline Phosphatase 105 (39-117) U/L Total Protein 6.4 (5.9-8.4) gm/dL Albumin 3.5 (3.2-5.2) gm/dL Assessment and Plan (1) Partial obstruction of small intestine Status: Acute Assessment and plan: MiraLAX every 6 hours Check abdominal x-rays in the morning GI soft diet as tolerated Current Visit: Yes - Time Spent With Patient Total time spent is greater than 50% in coordination of care (as documented) at patient's floor/unit and/or counseling patient:
[2019-03-24] MEDS: POLYETHYLENE GLYCOL 3350 17 GM PACKET PO SCH ×4 (05:40→23:38)
[2019-03-24] MEDS: METOCLOPRAMIDE 10 MG/2 ML VIAL IV SCH ×4 (05:40→23:38)
[2019-03-24 05:43] LABS: Basophils # (Auto) 0 K/mcL (0.0-0.3); Basophils % (Auto) 0.2 % (0.0-2.0); Eosinophils # (Auto) 0.1 K/mcL (0.0-0.7); Eosinophils % (Auto) 1.7 % (0.0-7.0); Granulocytes % (Auto) 72.7 % (38.0-78.0); Hematocrit 37.1 % (41.0-55.0); Hemoglobin 12.5 g/dL (13.5-16.5); Lymphocytes # (Auto) 0.6 K/mcL (1.5-4.8); Lymphocytes % (Auto) 12.3 % (15.5-49.0); Mean Cell Volume 97.2 fL (80.0-100.0); Mean Corpuscular HGB Conc 33.7 g/dL (31.0-36.0); Mean Platelet Volume 8.1 fL (7.4-10.4); Monocytes # (Auto) 0.7 K/mcL (0.1-0.9); Monocytes % (Auto) 13.1 % (1.0-12.0); Platelet Count 277 K/mcL (140-440); RBC 3.81 M/mcL (4.50-5.90); Red Cell Distribution Width 13.3 % (11.5-14.5)
[2019-03-24 06:06] LABS: ALT/SGPT 11 U/l (0-40); AST/SGOT 14 U/l (0-37); Albumin 3.5 gm/dL (3.2-5.2); Albumin/Globulin Ratio 1.1 (1.0-2.3); Alkaline Phosphatase 110 U/L (39-117); Bilirubin,Direct < 0.2 mg/dL (0.0-0.3); Bilirubin,Total 0.3 mg/dL (0.0-1.0); Blood Urea Nitrogen 4 mg/dl (8-23); Calcium 8.9 mg/dl (8.6-10.4); Carbon Dioxide 28 mmol/L (22-30); Chloride 105 mmol/L (96-108); Globulin 3.1 gm/dL (2.2-3.7); Glomerular Filtration Rate 105; Glucose 87 mg/dL (70-105); Lactate Dehydrogenase 160 U/L (94-250); Phosphorous 2.9 mg/dL (2.7-4.5); Triglycerides 63 mg/dl (<150); Uric Acid 3.1 mg/dL (2.5-8.0)
[2019-03-24] MEDS: ESOMEPRAZOLE 40 MG VIAL IV SCH ×2 (08:02→17:32)
--- NOTE | 2019-03-24 08:37 | XRay Report ---
CLINICAL INFORMATION: FOLLOW -UP OF SMALL BOWEL OBSTRUCTION COMPARISON: 03/23/2019 FINDINGS: Stomach, small and large bowel show mild symmetric dilatation of bowel mild ileus no change. No evidence recurrent small bowel obstruction. No organomegaly or soft tissue mass IMPRESSION: Mild ileus. Interpreted and Authenticated by: Nahid Sandoval 03/24/19
[2019-03-24] MEDS: 0.9 % SODIUM CHLORIDE 1,000 ML IV SCH (12:56)
[2019-03-24] MEDS ORDERED: METOPROLOL SUCCINATE 25 MG TAB.XL.24H PO PRN (16:00)
--- NOTE | 2019-03-24 16:18 | General Surgery Progress Note ---
Subjective Patient reports: feels better, pain is less, tolerating a regular diet, flatus, bowel movement, afebrile Narrative: Note initiated : 03/24/19 at 4:16 pm Service Date, if different from initiated Date: [] Patient: Luc Major 78 y/o M admitted on 03/20/19 for Abd pain. Chief Complaint: [Patient has had multiple bowel movements. He denies abdominal pain. His abdominal distention is significantly less. White blood count 5.9, hemoglobin 12.5, BUN 4 creatinine 0.5. He states that he feels much better] Objective Temp Pulse Resp BP Pulse Ox 97.7 F 72 14 144/89 96 03/24/19 15:25 03/24/19 15:25 03/24/19 15:25 03/24/19 15:25 03/24/19 15:25 - Additional Data Intake & Output - Last 24 hours: Intake & Output 03/22/19 03/23/19 03/24/19 03/25/19 05:59 05:59 05:59 05:59 Intake Total 3096 4474 1997 2985 Output Total 1650 1075 2750 2025 Balance 1446 3399 -753 960 Weight 142 lb 12.8 oz 151 lb 6.4 oz 150 lb 6.4 oz 150 lb 6.4 oz - General physical appearance well developed, well nourished, no distress - Eyes PERRL, normal ocular movement - ENT normal pinna, normal nares, normal mucosa, no hearing loss, no congestion - Neck no masses, no bruits, trachea midline, no lymphadenopathy, no venous distension - Respiratory normal expansion, normal respiratory effort, clear to auscultation - Cardiovascular Cardiovascular exam: Present: normal rate and rhythm, irregular rhythm, +S1, +S2. Absent: JVD, RRR, tachycardia - Abdomen non tender (no tenderness noted today), bowel sounds (hyperactive bowel sounds), surgical scars (none), masses (none), distended (distention has resolved) - Integumentary no rash, no growths, no abnormal pigmentation - Neurologic normal coordination, normal sensation - Musculoskeletal normal gait, normal posture - Psychiatric oriented to time, oriented to person, speech is normal, memory intact, other (patient is pleasantly disoriented at times but is easily reoriented) - Labs 03/24/19 04:25 03/24/19 04:25 Diabetes panel 03/24/19 Range/Units 04:25 Sodium 144 (133-145) mmol/L Potassium 3.5 (3.3-5.1) mmol/L Chloride 105 (96-108) mmol/L Carbon Dioxide 28 (22-30) mmol/L BUN 4 L (8-23) mg/dl Creatinine 0.5 L (0.7-1.2) mg/dl Glucose 87 (70-105) mg/dL Calcium 8.9 (8.6-10.4) mg/dl AST 14 (0-37) U/l ALT 11 (0-40) U/l Alkaline Phosphatase 110 (39-117) U/L Total Protein 6.6 (5.9-8.4) gm/dL Albumin 3.5 (3.2-5.2) gm/dL Triglycerides 63 (<150) mg/dl Calcium panel 03/24/19 Range/Units 04:25 Calcium 8.9 (8.6-10.4) mg/dl Phosphorus 2.9 (2.7-4.5) mg/dL Albumin 3.5 (3.2-5.2) gm/dL Pituitary panel 03/24/19 Range/Units 04:25 Sodium 144 (133-145) mmol/L Potassium 3.5 (3.3-5.1) mmol/L Chloride 105 (96-108) mmol/L Carbon Dioxide 28 (22-30) mmol/L BUN 4 L (8-23) mg/dl Creatinine 0.5 L (0.7-1.2) mg/dl Glucose 87 (70-105) mg/dL Calcium 8.9 (8.6-10.4) mg/dl Adrenal panel 03/24/19 Range/Units 04:25 Sodium 144 (133-145) mmol/L Potassium 3.5 (3.3-5.1) mmol/L Chloride 105 (96-108) mmol/L Carbon Dioxide 28 (22-30) mmol/L BUN 4 L (8-23) mg/dl Creatinine 0.5 L (0.7-1.2) mg/dl Glucose 87 (70-105) mg/dL Calcium 8.9 (8.6-10.4) mg/dl Total Bilirubin 0.3 (0.0-1.0) mg/dL AST 14 (0-37) U/l ALT 11 (0-40) U/l Alkaline Phosphatase 110 (39-117) U/L Total Protein 6.6 (5.9-8.4) gm/dL Albumin 3.5 (3.2-5.2) gm/dL Assessment and Plan (1) Partial obstruction of small intestine Status: Acute Assessment and plan: MiraLAX every 6 hours Check abdominal x-rays in the morning GI soft diet as tolerated Saline lock IV Probable discharge tomorrow Current Visit: Yes - Time Spent With Patient Total time spent is greater than 50% in coordination of care (as documented) at patient's floor/unit and/or counseling patient:
[2019-03-24] MEDS: DULoxetine 30 MG CAPSULE PO SCH (20:17)
[2019-03-24] MEDS ORDERED: traZODone HCL 50 MG TABLET PO SCH (21:00)
[2019-03-25] MEDS: METOCLOPRAMIDE 10 MG/2 ML VIAL IV SCH ×2 (05:41→12:34)
[2019-03-25] MEDS: POLYETHYLENE GLYCOL 3350 17 GM PACKET PO SCH ×2 (05:41→12:16)
[2019-03-25 06:13] LABS: ALT/SGPT 12 U/l (0-40); AST/SGOT 15 U/l (0-37); Albumin 3.3 gm/dL (3.2-5.2); Albumin/Globulin Ratio 1.2 (1.0-2.3); Alkaline Phosphatase 97 U/L (39-117); Bilirubin,Direct < 0.2 mg/dL (0.0-0.3); Bilirubin,Total 0.3 mg/dL (0.0-1.0); Blood Urea Nitrogen 5 mg/dl (8-23); Calcium 8.7 mg/dl (8.6-10.4); Carbon Dioxide 29 mmol/L (22-30); Chloride 105 mmol/L (96-108); Globulin 2.8 gm/dL (2.2-3.7); Glomerular Filtration Rate 97; Glucose 90 mg/dL (70-105); Lactate Dehydrogenase 152 U/L (94-250); Phosphorous 3.4 mg/dL (2.7-4.5); Triglycerides 79 mg/dl (<150); Uric Acid 2.9 mg/dL (2.5-8.0)
[2019-03-25] MEDS ORDERED: LEVOTHYROXINE 100 MCG TABLET PO SCH (07:30)
[2019-03-25] MEDS ORDERED: PANTOPRAZOLE 40 MG TABLET PO SCH (07:30)
[2019-03-25] MEDS: DULoxetine 30 MG CAPSULE PO SCH (09:28)
--- NOTE | 2019-03-25 10:06 | XRay Report ---
CLINICAL INFORMATION: FOLLOW -UP OF SMALL BOWEL OBSTRUCTION COMPARISON: 03/24/2019 FINDINGS: Stomach, small and large bowel show symmetric dilatation patible with mild ileus. No evidence of recurrent small bowel obstruction. No free air, soft tissue mass or pathologic calcification IMPRESSION: Mild ileus Interpreted and Authenticated by: Nahid Sandoval 03/25/19
[2019-03-25] MEDS: ESOMEPRAZOLE 40 MG VIAL IV SCH (11:50)
[2019-03-25] MEDS ORDERED: METOCLOPRAMIDE 10 MG TABLET PO SCH (12:00)
--- NOTE | 2019-03-25 13:18 | Discharge Summary ---
Providers - Providers Patient information: Note initiated : 03/25/19 at 1:15 pm Service Date, if different from initiated Date: [] Patient: Luc Major 78 y/o M admitted on 03/20/19 for Abd pain. Chief Complaint: [] Date of admission: 03/20/19 Discharge date: 03/25/19 Attending physician: Jada Carr Hospitalization Hospital Course: 78-year-old male with prior history of small bowel obstruction. He was previously admitted in mid February with a similar history. He gives a history of having increasing abdominal pain with nausea and vomiting. He had abdominal distention. He was seen in the emergency room with findings suggestive of small bowel obstruction. He was admitted and placed on nasogastric suction. He also was placed on metoclopramide. Overnight, the contrast that was given with a CT had moved into the distal small bowel. Patient has previously had a partial obstruction in the proximal jejunum where he has had 2 small bowel resections with primary anastomosis. Patient gradually improved and subsequently had multiple bowel movements. He was started on clear liquids and tolerated this well. He's been advanced to soft diet without difficulty. He had multiple bowel movements last evening and today. His abdomen is totally flat and benign and he is stable for discharge home. Discharge diagnosis: partial small bowel obstruction Secondary discharge diagnosis: Chronic intestinal adhesions. History of kidney stone Reason for admission: abdominal pain, nausea and vomiting Procedures: None Pertinent studies/significant findings: CT of abdomen and pelvis with contrast Complications: None Exam Temp Pulse Resp BP Pulse Ox 97.8 F 77 14 139/89 98 03/25/19 12:00 03/25/19 12:00 03/25/19 12:00 03/25/19 12:00 03/25/19 12:00 - General physical appearance well developed, well nourished, no distress - Eyes PERRL, normal ocular movement - ENT normal pinna, normal nares, normal mucosa, no hearing loss, no congestion - Head Head exam IM: Present: atraumatic, normocephalic - Neck no masses, no bruits, trachea midline, no lymphadenopathy, no venous distension - Cardiovascular Cardiovascular exam IM: Present: normal rate and rhythm - Respiratory normal expansion, normal respiratory effort, clear to percussion, clear to auscultation - Abdomen Abdomen: Present: soft, non tender, bowel sounds, distended (no distention noted; active bowel sounds; well-healed incision) Hernia: Present: none - Genitourinary Present: normal penis with no external lesions - Integumentary Present: no rash, no growths, no abnormal pigmentation - Neurologic Present: normal coordination, normal sensation - Musculoskeletal Present: normal gait, normal posture - Psychiatric Present: oriented to time, oriented to person, oriented to place, speech is normal, memory intact Discharge Plan - Patient/Caregiver Discharge Instructions Activity: increase activity as tolerated Diet: Regular Diet Additional Instructions: MiraLAX. 8 ounces 3 times daily - Follow up Plan Follow up with: Samreen Mathews PA-C [Primary Care Provider] - Jada Carr MD [Physician] - 04/08/19 10:15 am Disposition: Home, Self-Care Care Plan Goals: This discharge packet is provided to you to help keep you informed about your care. We want to ensure you get everything you need when you go home. You will also be receiving a call from us in a few days to follow up with you and see how you are doing since your discharge. This gives us a chance to listen to any concerns you maybe experiencing since you were discharged or any additional needs you may have, as well as providing us feedback on your care experience. We strive to always provide excellent care and thank you for your feedback and for choosing [facility]. Prognosis: Good Rehab Potential: Good I certify that the patient requires SNF services.: No Overall status at discharge: patient is back to baseline Pending Studies Resuscitation Status Full Code Diet GI Soft/Transitional Start FriMar 23 1714 Acetaminophen (Tylenol) 650 mg PO Q6HP PRN PRN Reason: PAIN/FEVER > 101 Last Admin: 03/24/19 13:48 Dose: 650 mg Documented by: [email or web address] Calcium Carbonate/Glycine (Tums) 1,000 mg CHEWED Q4HP PRN PRN Reason: Indigestion Last Admin: 03/22/19 14:43 Dose: 1,000 mg Documented by: LCOURTRIGH Duloxetine HCl (Cymbalta) 30 mg PO TID [facility] Last Admin: 03/25/19 09:28 Dose: 30 mg Documented by: CHARTSFIEL Cosigned by: [email or web address] Admin: 03/24/19 20:17 Dose: 30 mg Documented by: NSTOSHANDRA Hydromorphone HCl (Dilaudid) 1 mg IV Q2HP PRN; Protocol PRN Reason: PAIN LEVEL > 6 Last Admin: 03/23/19 13:08 Dose: 1 mg Documented by: [email or web address] Admin: 03/23/19 03:18 Dose: 1 mg Documented by: Admin: 03/22/19 23:45 Dose: 1 mg Documented by: Admin: 03/22/19 21:00 Dose: 1 mg Documented by: Admin: 03/22/19 17:38 Dose: 1 mg Documented by: Admin: 03/22/19 11:44 Dose: 1 mg Documented by: Admin: 03/22/19 01:15 Dose: 1 mg Documented by: Admin: 03/21/19 15:50 Dose: 1 mg Documented by: Admin: 03/21/19 08:36 Dose: 1 mg Documented by: Admin: 03/21/19 06:25 Dose: 1 mg Documented by: Admin: 03/21/19 04:14 Dose: 1 mg Documented by: Admin: 03/21/19 00:12 Dose: 1 mg Documented by: Admin: 03/20/19 21:57 Dose: 1 mg Documented by: PARUL Levothyroxine Sodium (Synthroid) 200 mcg PO ACB [facility] Last Admin: 03/25/19 07:34 Dose: 200 mcg Documented by: JONATHAN Cosigned by: OLYA Lorazepam (Ativan) 0.5 mg IV HSP PRN PRN Reason: Insomnia Last Admin: 03/20/19 21:57 Dose: 0.5 mg Documented by: PARUL Metoclopramide HCl (Reglan) 10 mg PO Q6H [facility] Last Admin: 03/25/19 12:17 Dose: 10 mg Documented by: [email or web address] Cosigned by: OLYA Pantoprazole Sodium (Protonix) 40 mg PO QAMAC [facility] Last Admin: 03/25/19 10:09 Dose: 40 mg Documented by: JONATHAN Cosigned by: OLYA Polyethylene Glycol (Miralax) 17 gm PO Q6 [facility] Last Admin: 03/25/19 12:16 Dose: 17 gm Documented by: JONATHAN Cosigned by: OLYA Admin: 03/25/19 05:41 Dose: 17 gm Documented by: Admin: 03/24/19 23:38 Dose: 17 gm Documented by: Admin: 03/24/19 17:32 Dose: 17 gm Documented by: [email or web address] Admin: 03/24/19 12:21 Dose: 17 gm Documented by: Admin: 03/24/19 05:40 Dose: 17 gm Documented by: Admin: 03/23/19 23:53 Dose: 17 gm Documented by: Admin: 03/23/19 17:12 Dose: 17 gm Documented by: [email or web address] Trazodone HCl (Desyrel) 150 mg PO HS ABSIM Last Admin: 03/24/19 20:17 Dose: 150 mg Documented by: PARUL Shift Summary 03/25/19 04:47 Shift Summary by Rosette Shah A&O x4 but has periods of confusion. Pt slept most of this shift. He only had 1 BM this shift. Receiving scheduled miralax and reglan to help promote bowel movements. No complaints of pain or nausea this shift. Up with SBA to the bathroom - very steady on feet. Voids per urinal. Followup chest xray this AM. potential D/C home today. Initialized on 03/25/19 04:47 - END OF NOTE
== END 2019-03-25 13:50 | disposition home or self-care (01) | DRG 389 ==
LOC: ED 15:04 → MEDSUR 19:17
PROVIDERS: ADMIT Family Medicine Adult Medicine; ATTEND Family Medicine Adult Medicine

== ENCOUNTER 2019-04-18 13:21 | Inpatient (IN) ==
[2019-04-18] MEDS ORDERED: IOPAMIDOL 100 ML BOTTLE IV ONE (13:22)
[2019-04-18] MEDS ORDERED: LACTATED RINGERS 1,000 ML IV ONE (13:41)
--- NOTE | 2019-04-18 13:43 | Emergency Department Note ---
General Adult HPI - General Chief complaint: Urogenital-Male Stated complaint: abdominal pain Time Seen by Provider: 04/18/19 13:35 Source: patient Mode of arrival: wheelchair Limitations: no limitations - History of Present Illness HPI Narrative: This patient has had recent kidney stone removal with stenting by Dr. Gar and they remove the stent this morning. He continues to have hematuria but is developed abdominal discomfort and distention typical of previous small bowel obstructions that he has had recently. He said he did pass some gas and stool this morning. However he is having quite a bit of discomfort and some distention in his abdomen. Said no nausea or vomiting yet. - Related Data Home Medications Medication Instructions Recorded Confirmed traZODone HCL [Desyrel] 150 mg PO HS 05/29/15 04/15/19 apixaban 5 mg tablet 5 mg PO BID 07/31/18 04/15/19 aspirin 81 mg chewable tablet 81 mg PO QDAY 07/31/18 04/15/19 cyanocobalamin (vitamin B-12) 500 1,000 mcg PO QDAY 07/31/18 04/15/19 mcg tablet duloxetine 30 mg capsule,delayed 30 mg PO TID 07/31/18 04/15/19 release metoprolol succinate 25 mg 25 mg PO DAILY PRN 07/31/18 04/15/19 tablet,extended release 24 hr polyethylene glycol 3350 17 17 gm PO BIDP PRN g 07/31/18 04/15/19 gram/dose oral powder riboflavin (vitamin B2) 100 mg 400 mg PO QDAY tab 10/29/18 04/15/19 tablet linaclotide 145 mcg capsule 145 mcg PO DAILY cap 11/30/18 04/15/19 Ascorbate Calcium [Vitamin C] 500 mg PO DAILY 03/02/19 04/15/19 Levothyroxine Sodium [Euthyrox] 200 mcg PO AC 03/02/19 04/15/19 LORazepam [Ativan] 0.5 mg PO BID 03/20/19 04/15/19 Dexlansoprazole [Dexilant] 60 mg PO DAILY 04/13/19 04/15/19 Previous Rx's Medication Instructions Recorded tamsulosin 0.4 mg capsule 0.4 mg PO BID #60 cap 07/23/17 tramadol 50 mg tablet 50 mg PO Q6H PRN #30 tab 04/09/19 Allergies Allergy/AdvReac Type Severity Reaction Status Date / Time No Known Drug Allergies Allergy Verified 04/18/19 13:29 Review of Systems All systems ED: reviewed and negative except as stated. Past Medical History - Past Medical History [facility] Narrative: Medical History (Last Reviewed 04/09/19 @ 11:12 by Angely Krishnamurthy, STEVEN) SVT (supraventricular tachycardia) (Acute) Renal cyst (Acute) Ptosis (Acute) Palpitations (Acute) Kidney stone (Acute) Hypothyroidism (Acute) Left flank pain (Acute) Diverticulosis (Acute) DDD (degenerative disc disease) (Acute) Kidney cyst, acquired (Acute) BPH with urinary obstruction (Acute) BPH (benign prostatic hypertrophy) (Acute) Past Surgical History (Last Reviewed 04/09/19 @ 11:12 by Angely Krishnamurthy, STEVEN) History of photovaporization of prostate (Acute 09/06/14) H/O excision of ganglion cyst (Acute) History of cholecystectomy (Acute) History of bowel resection (Acute) History of endoscopy (Acute) Family History (Last Reviewed 04/09/19 @ 11:12 by Angely Krishnamurthy RN) Grandmother Malignant neoplasm of uterus Grandfather Cardiac disease Medical history: Reports: atrial fibrillation, GERD, hypertension, other (history of multiple abdominal diverticuli) Psychiatric history: Reports: no psych history Surgical history ED: Reports: prostatectomy, other (status post bowel resection x2, status post prostate vaporization) - Social History smoking status: Never smoker Alcohol use: Reports: None Drug use: Reports: none Physical Exam Limitations: no limitations General appearance: alert Head: atraumatic Eye: Present: normal appearance ENT: Present: normal exam Neck: Present: normal inspection Chest: Present: normal inspection Respiratory: Present: normal lung sounds bilaterally Cardiovascular: Present: regular rate, normal rhythm, normal heart sounds Abdominal: Present: soft, distention, tenderness, hyperactive bowel sounds. Absent: guarding, rebound, rigidity Neurological: Present: alert Psychiatric: Present: normal affect Skin: Present: warm, dry Course Vital Signs Pulse Rate 72 04/18/19 14:35 Blood Pressure 123/75 04/18/19 14:35 Pulse Oximetry (%) 100 04/18/19 14:35 Pulse Rate 79 04/18/19 15:01 Blood Pressure 119/73 04/18/19 15:01 Pulse Oximetry (%) 99 04/18/19 15:01 Medical Decision Making - MDM Narrative Medical decision making narrative: CT scan does show partial small bowel obstruction. I discussed the case with Dr. Carr the general surgeon and he will admit the patient to the hospital. His urine does show a lot of white cells so I will add Levaquin. - Lab Data Lab results reviewed: Yes I reviewed the patient's lab results. Result diagrams: 04/18/19 13:58 04/18/19 13:58 Lab Results 04/18/19 04/18/19 04/18/19 Range/Units 13:58 13:58 15:35 WBC 8.6 (4.5-11.0) K/mcL RBC 3.60 L (4.50-5.90) M/mcL Hgb 11.8 L (13.5-16.5) g/dL Hct 35.3 L (41.0-55.0) % MCV 97.8 (80.0-100.0) fL MCH 32.8 (26.0-34.0) pg MCHC 33.5 (31.0-36.0) g/dL RDW 14.2 (11.5-14.5) % Plt Count 245 (140-440) K/mcL MPV 8.3 (7.4-10.4) fL Gran % 84.5 H (38.0-78.0) % Lymph % (Auto) 6.9 L (15.5-49.0) % Stearns % (Auto) 7.4 (1.0-12.0) % Eos % (Auto) 0.6 (0.0-7.0) % Baso % (Auto) 0.6 (0.0-2.0) % Gran # 7.3 (1.8-8.0) K/mcL Lymph # (Auto) 0.6 L (1.5-4.8) K/mcL Stearns # (Auto) 0.6 (0.1-0.9) K/mcL Eos # (Auto) 0 (0.0-0.7) K/mcL Baso # (Auto) 0.1 (0.0-0.3) K/mcL Sodium 135 (133-145) mmol/L Potassium 3.5 (3.3-5.1) mmol/L Chloride 99 (96-108) mmol/L Carbon Dioxide 24 (22-30) mmol/L Anion Gap 12.0 (8-16) BUN 20 (8-23) mg/dl Creatinine 0.7 (0.7-1.2) mg/dl GFR Calculation 91 Glucose 94 (70-105) mg/dL Calcium 8.8 (8.6-10.4) mg/dl Total Bilirubin 0.3 (0.0-1.0) mg/dL AST 20 (0-37) U/l ALT 19 (0-40) U/l Alkaline Phosphatase 135 H (39-117) U/L Total Protein 6.7 (5.9-8.4) gm/dL Albumin 3.7 (3.2-5.2) gm/dL Globulin 3.0 (2.2-3.7) gm/dL Albumin/Globulin Ratio 1.2 (1.0-2.3) Urine Color Red Urine Appearance Clear Urine pH 6.0 (5.0-9.0) Ur Specific [place] 1.019 (1.000-1.035) Urine Protein 100 A (NEG) mg/dL Urine Glucose (UA) Negative (NEG) mg/dL Urine Ketones Neg (NEG) mg/dL Urine Occult Blood >=1.0 A (<0.03) mg/dL Urine Nitrate Neg (NEG) Urine Bilirubin Neg (NEG) mg/dL Urine Urobilinogen Neg (NEG) mg/dL Ur Leukocyte Esterase Neg (NEG) /uL Urine RBC > 182 H (0-1) /hpf Urine WBC 110 H (0-4) /hpf Ur Squamous Epith Cells 0 (0-4) /hpf Urine Bacteria 0 (0) /hpf Urine Mucus Many A (0) /hpf Ur Culture Indicated? Yes - Radiology Data Radiology results reviewed: Yes I reviewed the patient's radiology results. Disposition Pt seen by FIELD TRAFFIC INVESTIGATOR/PA only: No Clinical Impression: SBO (small bowel obstruction), Urinary tract infection Disposition: Xfer As Inpt ([facility]) Condition: Good Referrals: No,PCP [Primary Care Provider] - Time of Disposition: 15:20
[2019-04-18] MEDS ORDERED: HYDROmorphone 2 MG/ML VIAL IV SCH (13:45)
[2019-04-18 14:49] LABS: Basophils # (Auto) 0.1 K/mcL (0.0-0.3); Basophils % (Auto) 0.6 % (0.0-2.0); Eosinophils # (Auto) 0 K/mcL (0.0-0.7); Eosinophils % (Auto) 0.6 % (0.0-7.0); Granulocytes % (Auto) 84.5 % (38.0-78.0); Hematocrit 35.3 % (41.0-55.0); Hemoglobin 11.8 g/dL (13.5-16.5); Lymphocytes # (Auto) 0.6 K/mcL (1.5-4.8); Lymphocytes % (Auto) 6.9 % (15.5-49.0); Mean Cell Volume 97.8 fL (80.0-100.0); Mean Corpuscular HGB Conc 33.5 g/dL (31.0-36.0); Mean Platelet Volume 8.3 fL (7.4-10.4); Monocytes # (Auto) 0.6 K/mcL (0.1-0.9); Monocytes % (Auto) 7.4 % (1.0-12.0); Platelet Count 245 K/mcL (140-440); Red Cell Distribution Width 14.2 % (11.5-14.5); WBC 8.6 K/mcL (4.5-11.0)
[2019-04-18 15:06] LABS: ALT/SGPT 19 U/l (0-40); AST/SGOT 20 U/l (0-37); Albumin 3.7 gm/dL (3.2-5.2); Albumin/Globulin Ratio 1.2 (1.0-2.3); Alkaline Phosphatase 135 U/L (39-117); Bilirubin,Total 0.3 mg/dL (0.0-1.0); Blood Urea Nitrogen 20 mg/dl (8-23); Calcium 8.8 mg/dl (8.6-10.4); Carbon Dioxide 24 mmol/L (22-30); Chloride 99 mmol/L (96-108); Glomerular Filtration Rate 91; Glucose 94 mg/dL (70-105)
--- NOTE | 2019-04-18 15:06 | Cat Scan Report ---
CLINICAL INFORMATION: Abdominal pain COMPARISON: Multiple previous plain film examinations including examinations dated 04/09/2019, 03/29/2019, 03/25/2019, 03/24/2019, 03/23/2019, 03/22/1990. Previous CT scans dated 03/02/2019, 11/04/2018, 05/05/2018, 06/25/2017 TECHNIQUE: Axial images were obtained through the abdomen and pelvis. Sagittally and coronally reformatted images. 80 mL Isovue 370 injected intravenously. Oral contrast material was not administered FINDINGS: Lung bases:Negative, no focal pulmonary parenchymal infiltrate or mass. There is no pleural fluid. There is no pericardial fluid Liver:No focal hepatic mass. Liver contour is smooth. No evidence for cirrhosis. Gallbladder, billary:Previous cholecystectomy. Common bile duct is dilated to 15 mm. There is mild intrahepatic bile duct dilatation. There is pneumobilia consistent with previous papillotomy. No detectable choledocholithiasis. Spleen:No splenomegaly. Patient has a history of splenic vein thrombosis. There is subtle filling defect in the splenic vein, just proximal to the portal vein Pancreas:Negative. No pancreatic mass. Adrenal glands:Negative Kidneys, ureters, bladder:There are bilateral nonobstructing renal calculi. There is mild left hydronephrosis. There is a 6 mm distal left ureteral calculus. There is no right hydronephrosis. There is an 8 cm right mid to upper pole renal cyst. This is unchanged. No solid renal mass. No right hydronephrosis or hydroureter. Bladder is not distended. The gallbladder is possible. There are no calculi. Gastrointestinal:Markedly distended fluid-filled stomach. The second and proximal third portion of the duodenum are distended and fluid-filled. There is an anastomotic suture line in the third portion of the duodenum. Duodenum distal to this suture line is not distended. Proximal jejunum appears normal. Distal jejunum and ileum are dilated and fluid-filled. Cross-sectional diameter measures approximately 4 cm. There appears to be a transition in the right lower abdominal quadrant. Terminal ileum is not distended. Dilated small bowel was present previously with an essentially unchanged appearance Appendix is negative. There is gas and fecal material within the colon. There is sigmoid diverticulosis. No diverticulitis. Vascular:There is calcification of the abdominal aorta. No abdominal aortic aneurysm. There is calcification at the origin of the celiac trunk and superior mesenteric artery. No definite stenosis. There is a small soft plaque or thrombus in the proximal superior mesenteric artery. As described above there is subtle thrombus within the splenic vein, just proximal to the portal vein. This has been present previously. This is not completely obstructing. No evidence for bowel ischemia Lymphatic:No retroperitoneal lymphadenopathy. No mesenteric adenopathy Mesentery, peritoneum:No free intraperitoneal fluid. No intra-abdominal abscess. No pneumoperitoneum. Mesenteric fat is abnormal in the mid abdomen. There is infiltration and irregular density. This was present on previous examinations but is somewhat more prominent. Etiology of this abnormality is not certain. This may be sclerosing mesenteritis. Malignancy including carcinoid tumor is possible. Reproductive:Prostate is not significantly enlarged Musculoskeletal:Severe multilevel degenerative disc disease. No lumbar compression fracture. Sacrum and pelvis are negative. No hip fracture. IMPRESSION: 1. Markedly dilated stomach and proximal duodenum. Appearance is consistent with partial obstruction at an anastomotic suture line within the third portion of the duodenum 2. Dilated distal jejunum and ileum. There is a transition point in the right lower quadrant consistent with partial obstruction. 3. Bilateral renal calculi. Mild left hydronephrosis. 6 mm distal left ureteral calculus 4. Focal mesenteric abnormality is more prominent than on previous examinations. This may be sclerosing mesenteritis but malignancy including carcinoid are possible 5. Nonobstructing splenic vein thrombus. Minimal soft plaque or thrombus in the proximal superior mesenteric artery 6. Dilated common bile duct and mild intrahepatic bile duct dilatation. Pneumobilia consistent with papillotomy 7. Nonobstructing renal calculi bilaterally. Large right renal cyst The exam was performed using radiation dose optimization techniques including, but not limited to, automated exposure control, adjustment of the mA and/or kV according to patient size and use of iterative reconstruction technique. Interpreted and Authenticated by: Nahid Vázquez 04/18/19
[2019-04-18 15:08] LABS: Appearance,Urine CLEAR; Bacteria,Urine 0 /hpf (0); Bilirubin,Urine NEG (NEG); Color,Urine RED; Culture Indicated,Urine YES; Glucose,Urine (UA) NEGATIVE (NEG); Ketones,Urine NEG (NEG); Leukocyte Esterase,Urine NEG /uL (NEG); Mucus,Urine MANY /hpf (0); Nitrate,Urine NEG (NEG); Protein,Urine 100 mg/dL (NEG); Specific Gravity,Urine 1.019 (1.000-1.035); Urine Blood >=1.0 mg/dL (<0.03); Urine RBC > 182 /hpf (0-1); Urine Squamous Epithelial Cell 0 /hpf (0-4); Urine WBC 110 /hpf (0-4); Urobilinogen,Urine NEG (NEG)
[2019-04-18] MEDS ORDERED: LEVOFLOXACIN 750 MG/150 ML BAG IV ONE (15:17)
[2019-04-18] MEDS ORDERED: ONDANSETRON 4 MG/2 ML VIAL IV PRN (15:17)
[2019-04-18] MEDS ORDERED: HYDROmorphone 2 MG/ML VIAL IV PRN (19:31)
[2019-04-18] MEDS ORDERED: PROMETHAZINE 25 MG/ML VIAL IV PRN (19:34)
[2019-04-18] MEDS ORDERED: ACETAMINOPHEN 1,000 MG in PREMIX 1 BAG IV SCH (19:45)
[2019-04-18] MEDS: ACETAMINOPHEN 1,000 MG/100 ML BOTTLE IV SCH (20:23)
[2019-04-18] MEDS ORDERED: BUTALB/ACETAMINOPHEN/CAFFEINE 1 TABLET PO PRN (20:28)
--- NOTE | 2019-04-18 20:37 | General Surg History&Physical ---
History of Present Illness Patient information: Note initiated : 04/18/19 at 8:26 pm Service Date, if different from initiated Date: [] Patient: Luc Major 78 y/o M admitted on 04/18/19 for abdominal pain. Chief Complaint: [] HPI: Mr. Major is a 78 year old M admitted with adynamic ileus and symptoms of abdominal distention. He has not had nausea and vomiting. The patient was recently admitted on 21 March with partial obstruction with evidence of a distended stomach and proximal duodenum with a strictured area at the junction of the third and fourth portions of the duodenum. This is at the level of the old anastomosis. He has had multiple admissions in the past for similar conditions. He states that he did have some passage of stool and gas in the early childhood, but had worsening discomfort and distention throughout the day. Patient is admitted and will be treated medically. Patient also has history of blunt head trauma from a fall that occurred about 3 days previously. 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 He has had some headache but denies nausea related to the headache. Patient had ureteroscopy with stone extraction by urology and pulled the stents out one day previously. He's had gross hematuria with small clots. Since then. He has not had any bladder outlet obstruction symptoms. He is on EllIQUIS and this will be discontinued until his urine clears. I will also discuss this with Dr. Martínez. Review of Systems - Constitutional anorexia, malaise, weakness, weight loss - EENT Nose, mouth and throat: dizziness, headache(s), hoarseness, no abnormal hearing - Cardiovascular dyspnea on exertion, lightheadedness, syncope, no chest pain with activity - Respiratory no cough, no dyspnea on exertion, no pain with cough - Gastrointestinal abdominal pain, belching, bloating, change in bowel habits, change in stool character, cramping, dyspepsia, early satiety, heartburn, nausea - Genitourinary change in urinary stream, hematuria, urinary incontinence - Musculoskeletal arthralgias, muscle cramps, muscle weakness, myalgias, neck pain, stiffness - Integumentary no new lesions, no pruritus, no rash - Neurological convulsions, tremor(s), no confusion, no dizziness - Psychiatric anxiety, depression - Endocrine fatigue - Hematologic/Lymphatic easy bleeding, easy bruising, no lymphadenopathy - Allergic/Immunologic no tongue swelling, no throat swelling, no uticaria, no wheezing, no lip swelling Past History Past medical history: History of SVT. BPH with bladder obstruction. History of kidney stones. Prior history of diverticulosis. Degenerative joint disease Past surgical history: Cholecystectomy. Small bowel resection 2. History of fall. No vaporization of prostate. Recent ureteroscopy with stone extraction and stenting Past family history: Uterine malignancy.. Heart disease Past social history: Never tobacco use Denies drug use. Occasional alcohol use Medications and Allergies Home Medications Medication Instructions Recorded Confirmed Type RX: traZODone HCL [Desyrel] 150 mg PO HS 05/29/15 04/18/19 History tamsulosin 0.4 mg capsule 0.4 mg PO BID #60 cap 07/23/17 04/18/19 Rx apixaban 5 mg tablet 5 mg PO BID 07/31/18 04/18/19 History aspirin 81 mg chewable tablet 81 mg PO QDAY 07/31/18 04/18/19 History cyanocobalamin (vitamin B-12) 500 1,000 mcg PO QDAY 07/31/18 04/18/19 History mcg tablet duloxetine 30 mg capsule,delayed 30 mg PO TID 07/31/18 04/18/19 History release metoprolol succinate 25 mg 25 mg PO DAILY PRN 07/31/18 04/18/19 History tablet,extended release 24 hr polyethylene glycol 3350 17 17 gm PO BIDP PRN g 07/31/18 04/18/19 History gram/dose oral powder riboflavin (vitamin B2) 100 mg 400 mg PO QDAY tab 10/29/18 04/18/19 History tablet linaclotide 145 mcg capsule 145 mcg PO DAILY cap 11/30/18 04/18/19 History RX: Ascorbate Calcium [Vitamin C] 500 mg PO DAILY 03/02/19 04/18/19 History RX: Levothyroxine Sodium [Euthyrox] 200 mcg PO AC 03/02/19 04/18/19 History Dexlansoprazole [Dexilant] 60 mg PO DAILY 04/13/19 04/18/19 History LORazepam [Ativan] 0.25 mg PO BID 04/18/19 04/19/19 History Allergies Allergy/AdvReac Type Severity Reaction Status Date / Time No Known Drug Allergies Allergy Verified 04/18/19 13:29 Exam Temp Pulse Resp BP Pulse Ox 98.7 F 82 20 111/71 97 04/18/19 18:58 04/18/19 18:58 04/18/19 18:58 04/18/19 18:58 04/18/19 18:58 - General physical appearance cachectic, chronically ill - Eyes PERRL, normal ocular movement - ENT normal pinna, normal nares, normal mucosa, no hearing loss, no congestion - Head Head exam IM: Present: atraumatic, normocephalic Head exam expanded IM: Present: general tenderness (tenderness of the left lateral aspect of the scalp, but no abrasion, no mass or bruising noted) - Neck no masses, no bruits, trachea midline, no lymphadenopathy, no venous distension - Cardiovascular Cardiovascular exam IM: Present: normal rate and rhythm, RRR, +S1, +S2. Absent: JVD, tachycardia - Respiratory normal expansion, normal respiratory effort, clear to auscultation - Abdomen Abdomen: Present: soft, non tender (. Abdomen is nontender; good active bowel sounds; no distention noted), bowel sounds Hernia: Present: none - Genitourinary Present: normal penis with no external lesions, other (. Gross blood at meatus) - Integumentary Present: no rash, no growths, no abnormal pigmentation - Neurologic Present: normal coordination, normal sensation - Musculoskeletal Present: normal gait, normal posture - Psychiatric Present: oriented to time, oriented to person, oriented to place, speech is normal, memory intact Assessment and Plan (1) Partial obstruction of small intestine Restarted on MiraLAX. Regular IV with close monitoring for extrapyramidal effects. Follow-up abdominal x-rays. Advance diet as tolerated Status: Acute (2) Headache, post-traumatic, acute CT of head and brain. Fioricet 2 tabs every 4 hours as needed for headache Status: Acute (3) Hematuria Discontinued anticoagulants. Discussed findings with urologist Status: Acute
[2019-04-18] MEDS ORDERED: METOPROLOL SUCCINATE 25 MG TAB.XL.24H PO PRN (20:41)
[2019-04-18] MEDS ORDERED: LORazepam 1 MG TABLET PO PRN (21:00)
[2019-04-18] MEDS ORDERED: APIXABAN 5 MG TABLET PO SCH (21:00)
[2019-04-18] MEDS: DULoxetine 30 MG CAPSULE PO SCH (22:16)
[2019-04-18] MEDS: TAMSULOSIN 0.4 MG CAPSULE PO SCH (22:16)
[2019-04-18] MEDS: traZODone HCL 50 MG TABLET PO SCH (22:16)
[2019-04-18] MEDS: POLYETHYLENE GLYCOL 3350 17 GM PACKET PO SCH (22:19)
[2019-04-18] MEDS: METOCLOPRAMIDE 10 MG/2 ML VIAL IV SCH (23:57)
[2019-04-19] MEDS: ACETAMINOPHEN 1,000 MG/100 ML BOTTLE IV SCH ×4 (01:36→20:00)
[2019-04-19] MEDS: POLYETHYLENE GLYCOL 3350 17 GM PACKET PO SCH ×4 (04:30→23:07)
[2019-04-19] MEDS: METOCLOPRAMIDE 10 MG/2 ML VIAL IV SCH ×3 (06:34→23:07)
[2019-04-19 06:52] LABS: Basophils # (Auto) 0 K/mcL (0.0-0.3); Basophils % (Auto) 0.7 % (0.0-2.0); Eosinophils # (Auto) 0.1 K/mcL (0.0-0.7); Eosinophils % (Auto) 2.1 % (0.0-7.0); Granulocytes % (Auto) 65.1 % (38.0-78.0); Hematocrit 30.3 % (41.0-55.0); Hemoglobin 10.3 g/dL (13.5-16.5); Lymphocytes # (Auto) 0.7 K/mcL (1.5-4.8); Lymphocytes % (Auto) 19.2 % (15.5-49.0); Mean Cell Volume 96.8 fL (80.0-100.0); Mean Corpuscular HGB Conc 34.1 g/dL (31.0-36.0); Monocytes # (Auto) 0.4 K/mcL (0.1-0.9); Monocytes % (Auto) 12.9 % (1.0-12.0); Platelet Count 231 K/mcL (140-440); RBC 3.13 M/mcL (4.50-5.90); Red Cell Distribution Width 13.9 % (11.5-14.5); WBC 3.4 K/mcL (4.5-11.0)
[2019-04-19] MEDS: TAMSULOSIN 0.4 MG CAPSULE PO SCH ×2 (08:09→21:09)
[2019-04-19] MEDS: LEVOTHYROXINE 100 MCG TABLET PO SCH (08:09)
[2019-04-19] MEDS: DULoxetine 30 MG CAPSULE PO SCH ×3 (08:09→21:09)
--- NOTE | 2019-04-19 08:09 | XRay Report ---
CLINICAL INFORMATION: FOLLOW -UP OF SMALL BOWEL OBSTRUCTION COMPARISON: 04/09/2019 FINDINGS: Stomach, small large bowel are symmetrically dilated with scattered air-fluid levels. Findings most compatible with moderate ileus. No free air, soft tissue mass or organomegaly. The two small calcifications, overlying the left upper collecting system on prior x-ray, are not appreciated on today's exam. They're likely nonobstructing stones. IMPRESSION: Moderate ileus Interpreted and Authenticated by: Nahid Sandoval 04/19/19
[2019-04-19] MEDS ORDERED: DEXLANSOPRAZOLE 60 MG PO SCH (09:00)
--- NOTE | 2019-04-19 10:47 | Cat Scan Report ---
CLINICAL INFORMATION: Trauma - fall with posttraumatic headache COMPARISON: 01/31/2018 TECHNIQUE: 2.5 mm helical slices were obtained in the skull base to vertex. Following reconstruction, axial reformatted images were reviewed at bone and parenchymal windows. The exam was performed using radiation dose optimization techniques including, but not limited to, automated exposure control, adjustment of the mA and/or kV according to patient size and use of iterative reconstruction technique. FINDINGS: The ventricles, sulci, fissures, and cisterns are symmetrically enlarged bowel mild age-related atrophy - no subdural hemorrhage or extra-axial fluid collection. Minimal patchy chronic ischemic changes in deep cerebral white matter expected for age and unchanged. A few scattered remote lacunar infarcts in basal ganglia again noted. There is no intracerebral hemorrhage, mass effect, edema or other acute posttraumatic change. Bone windows show no fracture or other osseous abnormality. IMPRESSION: Mild atrophy with chronic ischemic changes in the deep cerebral white matter. A few remote lacunar infarcts in basal ganglia region. There is no intracerebral hemorrhage or other acute posttraumatic change Interpreted and Authenticated by: Nahid Sandoval 04/19/19
[2019-04-19] MEDS: 0.9 % SODIUM CHLORIDE 1,000 ML IV SCH (14:00)
--- NOTE | 2019-04-19 14:37 | General Surgery Progress Note ---
Subjective Patient reports: feels better, pain is less, flatus, bowel movement, diarrhea, afebrile Narrative: Note initiated : 04/19/19 at 2:35 pm Service Date, if different from initiated Date: [] Patient: Luc Major 78 y/o M admitted on 04/18/19 for abdominal pain. Chief Complaint: [patient feels better. He had 3 bowel movements last evening with a large volume of flatus. He states that he feels hungry. He has not had nausea.white blood count 3.4, hemoglobin 10.3, hematocrit 30.3. His urine is less bloody.] Objective Temp Pulse Resp BP Pulse Ox 97.5 F 67 18 90/60 98 04/19/19 08:00 04/19/19 08:00 04/19/19 08:00 04/19/19 08:00 04/19/19 08:00 - Additional Data Intake & Output - Last 24 hours: Intake & Output 04/17/19 04/18/19 04/19/19 04/20/19 06:59 05:59 05:59 05:59 Intake Total 1410 580 Output Total 1851 1375 Balance -441 -795 Weight 148 lb 148 lb - General physical appearance no distress, cachectic, chronically ill - Eyes PERRL, normal ocular movement - ENT normal pinna, normal nares, normal mucosa, no hearing loss, no congestion - Neck no masses, no bruits, trachea midline, no lymphadenopathy, no venous distension - Respiratory normal expansion, normal respiratory effort, clear to auscultation - Cardiovascular Cardiovascular exam: Present: normal rate and rhythm, RRR, +S1, +S2. Absent: bradycardia, tachycardia - Abdomen non tender (abdomen is soft and nontender; good active bowel sounds), bowel sounds (present), surgical scars (none), masses (none) - Neurologic normal coordination, normal sensation - Musculoskeletal normal gait, normal posture - Psychiatric oriented to time, oriented to person, oriented to place, speech is normal, memory intact - Labs 04/19/19 05:20 04/18/19 13:58 Diabetes panel 04/18/19 Range/Units 13:58 Sodium 135 (133-145) mmol/L Potassium 3.5 (3.3-5.1) mmol/L Chloride 99 (96-108) mmol/L Carbon Dioxide 24 (22-30) mmol/L BUN 20 (8-23) mg/dl Creatinine 0.7 (0.7-1.2) mg/dl Glucose 94 (70-105) mg/dL Calcium 8.8 (8.6-10.4) mg/dl AST 20 (0-37) U/l ALT 19 (0-40) U/l Alkaline Phosphatase 135 H (39-117) U/L Total Protein 6.7 (5.9-8.4) gm/dL Albumin 3.7 (3.2-5.2) gm/dL Calcium panel 04/18/19 Range/Units 13:58 Calcium 8.8 (8.6-10.4) mg/dl Albumin 3.7 (3.2-5.2) gm/dL Pituitary panel 04/18/19 Range/Units 13:58 Sodium 135 (133-145) mmol/L Potassium 3.5 (3.3-5.1) mmol/L Chloride 99 (96-108) mmol/L Carbon Dioxide 24 (22-30) mmol/L BUN 20 (8-23) mg/dl Creatinine 0.7 (0.7-1.2) mg/dl Glucose 94 (70-105) mg/dL Calcium 8.8 (8.6-10.4) mg/dl Adrenal panel 04/18/19 Range/Units 13:58 Sodium 135 (133-145) mmol/L Potassium 3.5 (3.3-5.1) mmol/L Chloride 99 (96-108) mmol/L Carbon Dioxide 24 (22-30) mmol/L BUN 20 (8-23) mg/dl Creatinine 0.7 (0.7-1.2) mg/dl Glucose 94 (70-105) mg/dL Calcium 8.8 (8.6-10.4) mg/dl Total Bilirubin 0.3 (0.0-1.0) mg/dL AST 20 (0-37) U/l ALT 19 (0-40) U/l Alkaline Phosphatase 135 H (39-117) U/L Total Protein 6.7 (5.9-8.4) gm/dL Albumin 3.7 (3.2-5.2) gm/dL Assessment and Plan (1) Partial obstruction of small intestine Status: Acute Assessment and plan: Patient is clinically improved and is having regular bowel movements. Advanced to full liquid diet with supplements. Reglan 5 mg 3 times daily IV Current Visit: No (2) Headache, post-traumatic, acute Status: Acute Current Visit: Yes (3) Hematuria Status: Acute Assessment and plan: Hematuria, significantly improved from yesterday Current Visit: Yes - Time Spent With Patient Total time spent is greater than 50% in coordination of care (as documented) at patient's floor/unit and/or counseling patient:
[2019-04-19] MEDS: LORazepam 0.5 MG TABLET PO SCH (21:08)
[2019-04-19] MEDS: traZODone HCL 50 MG TABLET PO SCH (21:08)
[2019-04-20] MEDS: 0.9 % SODIUM CHLORIDE 1,000 ML IV SCH ×2 (02:22→16:28)
[2019-04-20] MEDS: ACETAMINOPHEN 1,000 MG/100 ML BOTTLE IV SCH ×4 (02:23→20:44)
[2019-04-20] MEDS: POLYETHYLENE GLYCOL 3350 17 GM PACKET PO SCH ×3 (04:09→18:01)
[2019-04-20] MEDS: METOCLOPRAMIDE 10 MG/2 ML VIAL IV SCH ×3 (05:54→22:23)
[2019-04-20 06:56] LABS: Basophils # (Auto) 0 K/mcL (0.0-0.3); Basophils % (Auto) 0.6 % (0.0-2.0); Eosinophils # (Auto) 0.1 K/mcL (0.0-0.7); Eosinophils % (Auto) 3.6 % (0.0-7.0); Granulocytes % (Auto) 62.2 % (38.0-78.0); Hematocrit 30.7 % (41.0-55.0); Hemoglobin 10.3 g/dL (13.5-16.5); Lymphocytes # (Auto) 0.8 K/mcL (1.5-4.8); Lymphocytes % (Auto) 19.5 % (15.5-49.0); Mean Cell Volume 97.3 fL (80.0-100.0); Mean Corpuscular HGB Conc 33.5 g/dL (31.0-36.0); Mean Platelet Volume 7.9 fL (7.4-10.4); Monocytes # (Auto) 0.6 K/mcL (0.1-0.9); Monocytes % (Auto) 14.1 % (1.0-12.0); Platelet Count 213 K/mcL (140-440); RBC 3.15 M/mcL (4.50-5.90); Red Cell Distribution Width 14.3 % (11.5-14.5); WBC 3.9 K/mcL (4.5-11.0)
[2019-04-20] MEDS: LORazepam 0.5 MG TABLET PO SCH ×2 (08:14→20:45)
[2019-04-20] MEDS: DULoxetine 30 MG CAPSULE PO SCH ×3 (08:16→20:45)
[2019-04-20] MEDS: TAMSULOSIN 0.4 MG CAPSULE PO SCH ×2 (08:16→20:45)
[2019-04-20] MEDS: LEVOTHYROXINE 100 MCG TABLET PO SCH (08:17)
[2019-04-20] MEDS: PANTOPRAZOLE 40 MG TABLET PO SCH (08:17)
--- NOTE | 2019-04-20 08:20 | XRay Report ---
CLINICAL INFORMATION: FOLLOW -UP OF SMALL BOWEL OBSTRUCTION COMPARISON: 04/19/2019 FINDINGS: Stomach, small and large bowel show mild symmetric dilatation with scattered air-fluid levels. There is stool and gas within the rectum. Findings are compatible with moderate ileus. No free air, soft tissue mass or organomegaly IMPRESSION: Moderate ileus. Interpreted and Authenticated by: Nahid Sandoval 04/20/19
--- NOTE | 2019-04-20 14:22 | General Surgery Progress Note ---
Subjective Patient reports: feels better, pain is less, tolerating liquids well, flatus, bowel movement, afebrile Narrative: Note initiated : 04/20/19 at 2:20 pm Service Date, if different from initiated Date: [] Patient: Luc Major 78 y/o M admitted on 04/18/19 for abdominal pain. Chief Complaint: [Patient feels better. He is still having occasional bowel movement and passage of flatus but abdominal x-rays continues to show diffuse dilation of the colon and small bowel. 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 Discussed with him the plan for radical twice daily to try to stimulate his bowel. If this is effective, then he can be started on Mestinon for support and hopefully we can regulate his intestinal evacuation better. He is otherwise stable.] Objective Temp Pulse Resp BP Pulse Ox 98.4 F 70 18 102/65 96 04/20/19 12:00 04/20/19 12:00 04/20/19 12:00 04/20/19 12:00 04/20/19 12:00 - Additional Data Intake & Output - Last 24 hours: Intake & Output 04/18/19 04/19/19 04/20/19 04/21/19 05:59 05:59 05:59 05:59 Intake Total 1410 2840 100 Output Total 1851 2525 545 Balance -441 315 -445 Weight 148 lb 145 lb 8 oz - General physical appearance cachectic, chronically ill - Eyes PERRL, normal ocular movement - ENT normal pinna, normal nares, normal mucosa, no hearing loss, no congestion - Neck no masses, no bruits, trachea midline, no lymphadenopathy, no venous distension - Respiratory normal expansion, normal respiratory effort, clear to auscultation - Cardiovascular Cardiovascular exam: Present: normal rate and rhythm, RRR, +S1, +S2. Absent: JVD, tachycardia - Abdomen soft, non tender, bowel sounds (hyperactive bowel sounds) - Neurologic normal coordination, normal sensation - Musculoskeletal normal gait, normal posture - Psychiatric oriented to time, oriented to person, oriented to place, speech is normal, memory intact - Labs 04/20/19 05:40 04/18/19 13:58 Assessment and Plan (1) Partial obstruction of small intestine Status: Acute Assessment and plan: Patient is clinically improved and is having regular bowel movements. Advanced to full liquid diet with supplements. Reglan 5 mg 3 times daily IV REGONOL 0.5 mg twice daily subcutaneous Current Visit: No (2) Headache, post-traumatic, acute Status: Chronic Current Visit: Yes (3) Hematuria Status: Acute Assessment and plan: Hematuria, significantly improved from yesterday Current Visit: Yes - Time Spent With Patient Total time spent is greater than 50% in coordination of care (as documented) at patient's floor/unit and/or counseling patient:
[2019-04-20] MEDS: traZODone HCL 50 MG TABLET PO SCH (20:45)
[2019-04-20] MEDS: PYRIDOSTIGMINE BROMIDE 10 MG/2 ML ML SC SCH (21:17)
[2019-04-21] MEDS: POLYETHYLENE GLYCOL 3350 17 GM PACKET PO SCH ×3 (00:06→15:16)
[2019-04-21] MEDS: ACETAMINOPHEN 1,000 MG/100 ML BOTTLE IV SCH ×4 (02:23→20:00)
[2019-04-21] MEDS: METOCLOPRAMIDE 10 MG/2 ML VIAL IV SCH ×3 (05:36→21:50)
[2019-04-21 06:18] LABS: Basophils # (Auto) 0 K/mcL (0.0-0.3); Basophils % (Auto) 0.7 % (0.0-2.0); Eosinophils # (Auto) 0.1 K/mcL (0.0-0.7); Eosinophils % (Auto) 3.5 % (0.0-7.0); Granulocytes % (Auto) 66.8 % (38.0-78.0); Hematocrit 30.5 % (41.0-55.0); Hemoglobin 10.3 g/dL (13.5-16.5); Lymphocytes # (Auto) 0.7 K/mcL (1.5-4.8); Lymphocytes % (Auto) 17.4 % (15.5-49.0); Mean Cell Volume 97.8 fL (80.0-100.0); Mean Corpuscular HGB Conc 33.8 g/dL (31.0-36.0); Mean Platelet Volume 7.7 fL (7.4-10.4); Monocytes # (Auto) 0.5 K/mcL (0.1-0.9); Monocytes % (Auto) 11.6 % (1.0-12.0); Platelet Count 213 K/mcL (140-440); RBC 3.12 M/mcL (4.50-5.90); Red Cell Distribution Width 14.1 % (11.5-14.5)
--- NOTE | 2019-04-21 08:01 | XRay Report ---
CLINICAL INFORMATION: FOLLOW -UP OF SMALL BOWEL OBSTRUCTION COMPARISON: 04/20/2019 FINDINGS: Scattered air-fluid levels within nondilated small and large bowel appreciated. Bowel remains normal caliber. No free air, soft tissue mass or organomegaly. No pathologic calcification. IMPRESSION: Mild ileus. No plain film evidence of recurrent bowel obstruction Interpreted and Authenticated by: Nahid Sandoval 04/21/19
[2019-04-21] MEDS: PANTOPRAZOLE 40 MG TABLET PO SCH (09:23)
[2019-04-21] MEDS: DULoxetine 30 MG CAPSULE PO SCH ×3 (09:23→21:41)
[2019-04-21] MEDS: TAMSULOSIN 0.4 MG CAPSULE PO SCH ×2 (09:23→21:41)
[2019-04-21] MEDS: LEVOTHYROXINE 100 MCG TABLET PO SCH (09:25)
[2019-04-21] MEDS: LORazepam 0.5 MG TABLET PO SCH ×2 (09:25→21:41)
--- NOTE | 2019-04-21 11:59 | General Surgery Progress Note ---
Subjective Patient reports: feels better, pain is less, tolerating liquids well, flatus, bowel movement, afebrile Narrative: Note initiated : 04/21/19 at 11:56 am Service Date, if different from initiated Date: [] Patient: Luc Major 78 y/o M admitted on 04/18/19 for abdominal pain. Chief Complaint: [patient is doing well. he had large volume of flatus last evening and has had multiple bowel movements. He denies abdominal discomfort, and he no longer has bloating. Abdominal x-ray shows significant reduction in gaseous distention of the bowel.] Objective Temp Pulse Resp BP Pulse Ox 97.8 F 63 18 96/61 97 04/21/19 08:00 04/21/19 04:00 04/21/19 08:00 04/21/19 04:00 04/21/19 08:00 - Additional Data Intake & Output - Last 24 hours: Intake & Output 04/19/19 04/20/19 04/21/19 04/22/19 05:59 05:59 05:59 05:59 Intake Total 1410 2840 2200 100 Output Total 1851 2525 2245 800 Balance -441 315 -45 -700 Weight 148 lb 145 lb 8 oz 144 lb - General physical appearance well developed, well nourished, no distress, no pain - Eyes PERRL, normal ocular movement - ENT normal pinna, normal nares, normal mucosa, no congestion, decreased hearing - Neck no masses, no bruits, trachea midline, no lymphadenopathy, no venous distension - Respiratory normal expansion, normal respiratory effort, clear to auscultation - Cardiovascular Cardiovascular exam: Present: normal rate and rhythm, RRR, +S1, +S2. Absent: JVD, tachycardia - Abdomen non tender, bowel sounds (present), surgical scars (none), masses (none) - Integumentary no rash, no growths, no abnormal pigmentation - Neurologic normal coordination, normal sensation - Musculoskeletal normal gait, normal posture - Psychiatric oriented to time, oriented to person, oriented to place, speech is normal, memory intact - Labs 04/21/19 04:55 04/18/19 13:58 Assessment and Plan (1) Partial obstruction of small intestine Status: Acute Assessment and plan: Patient is clinically improved and is having regular bowel movements. Reglan 5 mg 3 times daily IV REGONOL 0.5 mg twice daily subcutaneous Advanced to soft diet Current Visit: No (2) Headache, post-traumatic, acute Status: Chronic Current Visit: Yes (3) Hematuria Status: Acute Assessment and plan: Hematuria, significantly improved from yesterday Current Visit: Yes - Time Spent With Patient Total time spent is greater than 50% in coordination of care (as documented) at patient's floor/unit and/or counseling patient:
[2019-04-21] MEDS ORDERED: PYRIDOSTIGMINE BROMIDE 10 MG/2 ML ML SC ONE ×2 (12:30→21:00)
[2019-04-21] MEDS: PYRIDOSTIGMINE BROMIDE 10 MG/2 ML ML SC SCH (15:28)
[2019-04-21] MEDS: traZODone HCL 50 MG TABLET PO SCH (21:41)
[2019-04-22] MEDS: POLYETHYLENE GLYCOL 3350 17 GM PACKET PO SCH ×2 (00:06→08:14)
[2019-04-22] MEDS: ACETAMINOPHEN 1,000 MG/100 ML BOTTLE IV SCH ×3 (02:14→13:45)
[2019-04-22] MEDS: METOCLOPRAMIDE 10 MG/2 ML VIAL IV SCH ×2 (05:33→13:50)
[2019-04-22] MEDS: LEVOTHYROXINE 100 MCG TABLET PO SCH (08:10)
[2019-04-22] MEDS: PANTOPRAZOLE 40 MG TABLET PO SCH (08:10)
[2019-04-22] MEDS ORDERED: PYRIDOSTIGMINE 60 MG TABLET PO SCH (09:00)
[2019-04-22] MEDS: LORazepam 0.5 MG TABLET PO SCH (09:58)
[2019-04-22] MEDS: TAMSULOSIN 0.4 MG CAPSULE PO SCH (09:59)
[2019-04-22] MEDS: DULoxetine 30 MG CAPSULE PO SCH (09:59)
--- NOTE | 2019-04-22 12:54 | Discharge Summary ---
Providers - Providers Patient information: Note initiated : 04/22/19 at 12:48 pm Service Date, if different from initiated Date: [] Patient: Luc Major 78 y/o M admitted on 04/18/19 for abdominal pain. Chief Complaint: [] Date of admission: 04/18/19 Discharge date: 04/22/19 Attending physician: Jada Carr Hospitalization Hospital Course: 78-year-old male admitted with adynamic ileus and symptoms of abdominal distention. He was previously admitted 21 March with partial obstruction and evidence of distended stomach and duodenum. He has had multiple admissions in the past for similar conditions. He did have passage of stool and gas in the worship director, but had worsening discomfort and distention throughout the day. Patient was treated medically. Attempt was made to stimulate peristalsis of the proximal gut. Metoclopramide but that was not effective. He developed severe distention of small bowel and colon. Because of this, I entertained the possibility of chronic pseudoobstruction. He was started on Regonol at 5 mg twice daily. He had prompt evacuation of his bowel and follow-up x-rays showed near-complete clearing of the ileus. He received 2 doses on yesterday and had multiple large bowel movements last night. Today he is asymptomatic and is having regular bowel movements. The patient has been started on oral Mestinon and will be discharged on that. He had a history of blunt head trauma from a fall that occurred 3 days prior to admission. He had headache but denied nausea. He was treated with Fioricet and had prompt relief of his headaches. CT of the brain was nondiagnostic of any acute trauma. The patient also had previous ureteroscopy and stone extraction by urology and had stents removed the day prior to admission. He had gross hematuria with clots. He did not have bladder outlet obstruction symptoms. He was on ELIQUIS which was withheld and his urine subsequently cleared. I consulted verbally with Dr. Martínez felt that this was a proper treatment. His urine is clearing now. He has been placed back on the ELIQUIS. Discharge diagnosis: chronic intestinal pseudoobstruction Secondary discharge diagnosis: Recurrent nausea and vomiting. Blunt head trauma with headache. Hematuria due to ureteroscopy and stone extraction. Chronic anticoagulant therapy Reason for admission: recurrent abdominal pain with anorexia, weight loss Procedures: None Pertinent studies/significant findings: CT of abdomen and pelvis with IV contrast Exam Temp Pulse Resp BP Pulse Ox 98.4 F 74 16 123/74 98 04/22/19 12:00 04/22/19 12:00 04/22/19 12:00 04/22/19 12:00 04/22/19 12:00 - General physical appearance well developed, well nourished, no distress - Eyes PERRL, normal ocular movement - ENT normal pinna, normal nares, normal mucosa, no hearing loss, no congestion - Head Head exam IM: Present: atraumatic, normocephalic - Neck no masses, no bruits, trachea midline, no lymphadenopathy, no venous distension - Cardiovascular Cardiovascular exam IM: Present: normal rate and rhythm - Respiratory normal expansion, normal respiratory effort, clear to percussion, clear to auscultation - Abdomen Abdomen: Present: soft, non tender, bowel sounds (good active bowel sounds), distended (no abdominal distention noted) Hernia: Present: none - Genitourinary Present: normal penis with no external lesions - Integumentary Present: no rash, no growths, no abnormal pigmentation - Neurologic Present: normal coordination, normal sensation - Musculoskeletal Present: normal gait, normal posture - Psychiatric Present: oriented to time, oriented to person, oriented to place, speech is normal, memory intact Discharge Plan - Patient/Caregiver Discharge Instructions Activity: increase activity as tolerated Diet: Regular Diet, Dysphagia Level 7 Easy to Chew Foods Prescriptions: Pyridostigmine [Mestinon] 60 mg PO BID #60 tab Transmission Status: Pending to [facility] - Follow up Plan Follow up with: No,PCP [Primary Care Provider] - Jada Carr MD [Physician] - Disposition: Home, Self-Care Prognosis: Good Rehab Potential: Good I certify that the patient requires SNF services.: No Overall status at discharge: patient is progressing back to baseline Pending Studies Resuscitation Status Full Code Diet GI Soft/Transitional Start Kathrin Nov 1220 Duloxetine HCl (Cymbalta) 30 mg PO TID BASIM Last Admin: 04/22/19 09:59 Dose: 30 mg Documented by: Admin: 04/21/19 21:41 Dose: 30 mg Documented by: Admin: 04/21/19 15:01 Dose: 30 mg Documented by: Admin: 04/21/19 09:23 Dose: 30 mg Documented by: Admin: 04/20/19 20:45 Dose: 30 mg Documented by: Admin: 04/20/19 14:31 Dose: 30 mg Documented by: Admin: 04/20/19 08:16 Dose: 30 mg Documented by: Admin: 04/19/19 21:09 Dose: 30 mg Documented by: Admin: 04/19/19 14:19 Dose: 30 mg Documented by: Admin: 04/19/19 08:09 Dose: 30 mg Documented by: Admin: 04/18/19 22:16 Dose: 30 mg Documented by: KIANNA Hydromorphone HCl (Dilaudid) 1 mg IV Q2HP PRN PRN Reason: PAIN LEVEL > 6 Last Admin: 04/19/19 19:01 Dose: 1 mg Documented by: NINA Acetaminophen (Ofirmev) 1,000 mg in 100 mls @ 200 mls/hr IV Q6H BASIM Last Admin: 04/22/19 08:14 Dose: Not Given Documented by: Infusion: 04/22/19 03:00 Dose: 0 mls/hr Documented by: Admin: 04/22/19 02:14 Dose: 200 mls/hr Documented by: Infusion: 04/21/19 20:30 Dose: 200 mls/hr Documented by: Admin: 04/21/19 20:00 Dose: 200 mls/hr Documented by: Infusion: 04/21/19 18:46 Dose: 0 mls/hr Documented by: Admin: 04/21/19 15:00 Dose: 200 mls/hr Documented by: Infusion: 04/21/19 11:14 Dose: 0 mls/hr Documented by: Admin: 04/21/19 09:32 Dose: 200 mls/hr Documented by: Infusion: 04/21/19 02:53 Dose: 200 mls/hr Documented by: Admin: 04/21/19 02:23 Dose: 200 mls/hr Documented by: Infusion: 04/20/19 21:14 Dose: 200 mls/hr Documented by: Admin: 04/20/19 20:44 Dose: 200 mls/hr Documented by: Infusion: 04/20/19 18:01 Dose: 0 mls/hr Documented by: Admin: 04/20/19 14:31 Dose: 200 mls/hr Documented by: [email or web address] Infusion: 04/20/19 10:42 Dose: 0 mls/hr Documented by: Admin: 04/20/19 09:35 Dose: 200 mls/hr Documented by: Infusion: 04/20/19 03:30 Dose: 0 mls/hr Documented by: Admin: 04/20/19 02:23 Dose: 200 mls/hr Documented by: Infusion: 04/19/19 20:30 Dose: 200 mls/hr Documented by: Admin: 04/19/19 20:00 Dose: 200 mls/hr Documented by: Infusion: 04/19/19 17:05 Dose: 0 mls/hr Documented by: Admin: 04/19/19 14:16 Dose: 100 mls/hr Documented by: Infusion: 04/19/19 08:50 Dose: 0 mls/hr Documented by: Admin: 04/19/19 08:11 Dose: 200 mls/hr Documented by: Infusion: 04/19/19 02:10 Dose: 0 mls/hr Documented by: Admin: 04/19/19 01:36 Dose: 200 mls/hr Documented by: Infusion: 04/18/19 21:00 Dose: 0 mls/hr Documented by: Admin: 04/18/19 20:23 Dose: 200 mls/hr Documented by: KIANNA Levothyroxine Sodium (Synthroid) 200 mcg PO ACB BASIM Last Admin: 04/22/19 08:10 Dose: 200 mcg Documented by: [email or web address] Admin: 04/21/19 09:25 Dose: 200 mcg Documented by: Admin: 04/20/19 08:17 Dose: 200 mcg Documented by: Admin: 04/19/19 08:09 Dose: 200 mcg Documented by: MCKENNA Lorazepam (Ativan) 0.25 mg PO BID [facility] Admin: 04/22/19 09:58 Dose: 0.25 mg Documented by: Admin: 04/21/19 21:41 Dose: 0.25 mg Documented by: Admin: 04/21/19 09:25 Dose: Not Given Documented by: Admin: 04/20/19 20:45 Dose: 0.25 mg Documented by: Admin: 04/20/19 08:14 Dose: 0.25 mg Documented by: Admin: 04/19/19 21:08 Dose: 0.25 mg Documented by: NINA Metoclopramide HCl (Reglan) 5 mg IV Q8H [facility] Admin: 04/22/19 05:33 Dose: 5 mg Documented by: Admin: 04/21/19 21:50 Dose: 5 mg Documented by: Admin: 04/21/19 15:01 Dose: 5 mg Documented by: Admin: 04/21/19 05:36 Dose: 5 mg Documented by: Admin: 04/20/19 22:23 Dose: 5 mg Documented by: Admin: 04/20/19 14:31 Dose: 5 mg Documented by: Admin: 04/20/19 05:54 Dose: 5 mg Documented by: Admin: 04/19/19 23:07 Dose: 5 mg Documented by: NINA Pantoprazole Sodium (Protonix) 40 mg PO QAMAC [facility] Admin: 04/22/19 08:10 Dose: 40 mg Documented by: Admin: 04/21/19 09:23 Dose: 40 mg Documented by: Admin: 04/20/19 08:17 Dose: 40 mg Documented by: MCKENNA Polyethylene Glycol (Miralax) 17 gm PO Q8H [facility] Admin: 04/22/19 08:14 Dose: Not Given Documented by: Admin: 04/22/19 00:06 Dose: 17 gm Documented by: Admin: 04/21/19 15:16 Dose: 17 gm Documented by: Admin: 04/21/19 09:32 Dose: 17 gm Documented by: Admin: 04/21/19 00:06 Dose: 17 gm Documented by: NINA Pyridostigmine [place] (Mestinon) 60 mg PO TID [facility] Admin: 04/22/19 12:13 Dose: 60 mg Documented by: YAKOV Tamsulosin HCl (Flomax) 0.4 mg PO BID [facility] Admin: 04/22/19 09:59 Dose: 0.4 mg Documented by: Admin: 04/21/19 21:41 Dose: 0.4 mg Documented by: Admin: 04/21/19 09:23 Dose: 0.4 mg Documented by: Admin: 04/20/19 20:45 Dose: 0.4 mg Documented by: Admin: 04/20/19 08:16 Dose: 0.4 mg Documented by: Admin: 04/19/19 21:09 Dose: 0.4 mg Documented by: Admin: 04/19/19 08:09 Dose: 0.4 mg Documented by: Admin: 04/18/19 22:16 Dose: 0.4 mg Documented by: KIANNA Trazodone HCl (Desyrel) 150 mg PO HS [facility] Admin: 04/21/19 21:41 Dose: 150 mg Documented by: Admin: 04/20/19 20:45 Dose: 150 mg Documented by: Admin: 04/19/19 21:08 Dose: 150 mg Documented by: Admin: 04/18/19 22:16 Dose: 150 mg Documented by: KIANNA Shift Summary 04/22/19 03:56 Shift Summary by Pamela Morales The patient is alert and oriented times four, he ambulated in the hallways greater than 600 feet and his chronic back pain has been well managed with IV APAP. He is up ad donald in his room voiding large amounts of light francisco urine without any dysuria post urethral stent removal several weeks ago. Dressing to skin tear on left elbow CDI and healing WDL, IV SL to his left forearm, tolerating a full liquid diet well with no nausea, passing flatus and no loose stools this shift. His abdominal x-ray shows significant reduction in gaseous distention of the bowel and he states no further bloating, SQ injections of Regonol completed last evening and will start PO Mestinon today TID. He has scheduled Ofirmev/Miralax/Reglan for symptom management. Initialized on 04/22/19 03:56 - END OF NOTE
== END 2019-04-22 14:30 | disposition home or self-care (01) | DRG 389 ==
LOC: ED 13:21 → MEDSUR 16:39
PROVIDERS: ADMIT Family Medicine Adult Medicine; ATTEND Family Medicine Adult Medicine

== ENCOUNTER 2019-06-26 15:52 | Inpatient (IN) ==
[2019-06-26] MEDS ORDERED: ONDANSETRON 4 MG/2 ML VIAL IV ONE (16:26)
[2019-06-26] MEDS: HYDROmorphone 2 MG/ML VIAL IV PRN ×3 (16:33→17:32)
[2019-06-26 16:35] LABS: POC Blood Urea Nitrogen 24 mg/dl (8-23); POC CO2 25 mmol/L (22-30); POC Calcium, Ionized 1.11 mmol/L (1.16-1.32); POC Chloride 101 mmol/L (96-108); POC Creatinine 0.8 mg/dl (0.7-1.2); POC Glucose, Random 89 mg/dL (70-105); POC Potassium 3.9 mmol/L (3.3-5.1); POC Sodium 137 mmol/L (133-145)
--- NOTE | 2019-06-26 16:38 | Emergency Department Note ---
Abdominal Pain HPI - General Chief Complaint: Abdominal Pain Stated Complaint: abdominal pain Time Seen by Provider: 06/26/19 15:59 Source: patient Mode of arrival: wheelchair Limitations: no limitations - History of Present Illness HPI Narrative: 79-year-old male accompanied by his who reports 10 out of 10 pain in the umbilical region that has been going on for about 2 hours. He has a history of several episodes of blockages in multiple ER visits due to abdominal pain. These all seem to began after a surgery in May 2017 in which he had the second partial bowel resection due to diverticulitis (jejunum) done at [facility]. 2 weeks ago was seen but there was no blockage at that time. He feels significant nausea but does not do a lot of vomiting except sometimes burps up or belches up a little bit of bile which is foul tasting. His gave him a teaspoon of cannabis oil. He feels like he may be hyperventilating. He denies fevers, chills, sweats. REVIEW OF SYSTEMS: Denies chest pain, cough. Has feelings of shortness of breath that are not new but with walking or stairs. He is somewhat weak. No wheezing. Has had some diarrhea off and on. He denies current constipation. He denies hematochezia No dysuria Feels generally weak and unsteady No anxiety. No current depression but has had in the past. - Related Data Home Medications Medication Instructions Recorded Confirmed traZODone HCL [Desyrel] 150 mg PO HS 05/29/15 06/22/19 apixaban 5 mg tablet 5 mg PO BID 07/31/18 06/22/19 aspirin 81 mg chewable tablet 81 mg PO QDAY 07/31/18 06/22/19 cyanocobalamin (vitamin B-12) 500 1,000 mcg PO QDAY 07/31/18 06/22/19 mcg tablet duloxetine 30 mg capsule,delayed 30 mg PO TID 07/31/18 06/22/19 release metoprolol succinate 25 mg 25 mg PO DAILY PRN 07/31/18 06/22/19 tablet,extended release 24 hr polyethylene glycol 3350 17 17 gm PO BIDP PRN g 07/31/18 06/22/19 gram/dose oral powder riboflavin (vitamin B2) 100 mg 400 mg PO QDAY tab 10/29/18 06/22/19 tablet Ascorbate Calcium [Vitamin C] 500 mg PO DAILY 03/02/19 06/22/19 Levothyroxine Sodium [Euthyrox] 200 mcg PO AC 03/02/19 06/22/19 Dexlansoprazole [Dexilant] 60 mg PO DAILY 04/13/19 06/22/19 LORazepam [Lorazepam] 0.25 mg PO DAILY 06/26/19 06/26/19 Pyridostigmine [place] 60 mg PO TID 06/26/19 06/26/19 Previous Rx's Medication Instructions Recorded tamsulosin 0.4 mg capsule 0.4 mg PO BID #180 cap 05/11/19 Allergies Allergy/AdvReac Type Severity Reaction Status Date / Time No Known Drug Allergies Allergy Verified 06/22/19 13:18 Abdominal Pain PMH - Past Medical History [facility], [facility] Narrative: Medical History (Last Updated 06/26/19 @ 16:54 by Ruben Gabriel DO) History of small bowel obstruction (Chronic) Gastroparesis (Chronic) History of urinary calculi (Chronic) Hematuria (Chronic) A-fib (Chronic) GERD (gastroesophageal reflux disease) (Chronic) Hyperlipemia (Chronic) Anxiety disorder (Chronic) Anemia (Chronic) B12 deficiency (Chronic) Renal cyst (Chronic) Ptosis (Inactive) Hypothyroidism (Chronic) DDD (degenerative disc disease) (Chronic) BPH with urinary obstruction (Inactive) BPH (benign prostatic hypertrophy) (Inactive) History of migraine headaches (Chronic) Abdominal pain (Resolved) Bowel obstruction (Resolved ~03/02/19) Diverticulosis (Resolved) Headache, post-traumatic, acute (Resolved) Kidney stone (Resolved) Left flank pain (Resolved) Migraine (Resolved) Palpitations (Resolved) Partial obstruction of small intestine (Resolved) SBO (small bowel obstruction) (Resolved) SVT (supraventricular tachycardia) (Resolved) Urinary tract infection (Resolved) Kidney cyst, acquired (Inactive) Past Surgical History (Last Updated 06/26/19 @ 16:55 by Ruben Gabriel DO) History of tonsillectomy (Acute) H/O excision of ganglion cyst (Chronic) History of bowel resection (Chronic) History of cataract surgery (Chronic) History of cholecystectomy (Chronic ~1991) History of endoscopy (Chronic) History of left shoulder replacement (Chronic ~2006) 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 Denies: cancer, CVA, DM, myocardial infarction, TIA Psychiatric history: Reports: depression (Has had in the past not current). Denies: anxiety - Social History Smoking status: Never smoker Alcohol use: Reports: None Drug use: Reports: none. Denies: marijuana Physical Exam Limitations: no limitations General appearance: alert, grimacing, in distress, other (Some rapid breathing and sitting tall due to discomfort in his abdomen.) Head: atraumatic, normocephalic Eye: Present: PERRL, EOMI. Absent: scleral icterus ENT: Present: mucous membranes moist Neck: Present: trachea midline. Absent: lymphadenopathy, thyromegaly Chest: Present: symmetric chest wall rise Respiratory: Present: normal lung sounds bilaterally. Absent: respiratory distress, wheezes, stridor, accessory muscle use, prolonged expiratory phase Cardiovascular: Present: other (Somewhat distant.). Absent: systolic murmur, diastolic murmur Abdominal: Present: soft, tenderness. Absent: distention, guarding, rebound, rigidity, organomegaly, mass Abdominal tenderness: Present: edouard umbilical, mild, moderate (On exam; subjectively patient describes rather severe) Extremities: Absent: pedal edema, pretibial edema, calf tenderness Neurological: Present: alert, oriented X3 Psychiatric: Present: normal affect, normal mood Skin: Present: cool, dry Course Vital Signs Temperature 97.8 F 06/26/19 15:53 Pulse Rate 77 06/26/19 15:53 Respiratory Rate 24 H 06/26/19 15:53 Blood Pressure 145/85 06/26/19 15:53 Pulse Oximetry (%) 97 06/26/19 15:53 Temperature 97.8 F 06/26/19 15:53 Pulse Rate 76 06/26/19 17:08 Respiratory Rate 24 H 06/26/19 15:53 Blood Pressure 139/85 06/26/19 17:08 Pulse Oximetry (%) 100 06/26/19 17:08 Abdominal Pain - [facility] Narrative Medical decision making narrative: 4:14 PM -acute abdominal pain with history of at least several bowel obstructions and abdominal surgeries. Will do labs and CT for imaging; ondan setron and hydromorphone for nausea and pain control. 5:01 PM - I spoke with the radiologist, Dr. Barney Fuchs, who reports that patient has multiple loops in areas of the distal stomach, duodenum, jejunum that have air-fluid levels with some transition point and dilatation with conclusion of a partial distal small bowel obstruction likely. 5:13 PM - I spoke with Dr. Corwin Carr, general surgeon, who is willing to accept this patient for inpatient care due to above. Nasogastric tube to be pl aced. IV fluids, nausea control, pain control. Previously patient improved after 18-20 hours with similar presentation and treatments. 5:22 PM approximately - I spoke with patient and his and they have previously discussed his CODE STATUS as DNR. Transition orders created. - Lab Data Lab results reviewed: Yes I reviewed the patient's lab results. Result diagrams: 06/26/19 16:22 06/26/19 16:22 Lab Results 06/26/19 06/26/19 06/26/19 Range/Units 16:22 16:22 16:22 WBC 8.5 (4.50-11.00) K/mcL RBC 4.22 L (4.63-6.08) M/mcL Hgb 13.8 (13.7-17.5) g/dL Hct 40.0 L (40.1-51.0) % POC Hct 41.0 (41.0-55.0) % MCV 94.8 (80.0-100.0) fL MCH 32.7 (26.0-34.0) pg MCHC 34.5 (31.0-36.0) g/dL RDW 12.7 (11.5-14.5) % Plt Count 306 (140-440) K/mcL MPV 10.2 (7.4-10.4) fL Gran % 78.3 H (38.0-78.0) % Lymph % (Auto) 11.2 L (15.5-49.0) % Towns % (Auto) 9.3 (1.0-12.0) % Eos % (Auto) 0.6 (0.0-7.0) % Baso % (Auto) 0.6 (0.0-2.0) % Gran # 6.67 (1.80-8.00) K/mcL Lymph # (Auto) 0.95 L (1.50-4.80) K/mcL Towns # (Auto) 0.79 (0.10-0.90) K/mcL Eos # (Auto) 0.05 (0.00-0.70) K/mcL Baso # (Auto) 0.05 (0.00-0.30) K/mcL POC Sodium 137 (133-145) mmol/L Sodium 133 (133-145) mmol/L POC Potassium 3.9 (3.3-5.1) mmol/L Potassium 4.0 (3.3-5.1) mmol/L POC Chloride 101 (96-108) mmol/L Chloride 97 (96-108) mmol/L Carbon Dioxide 23 (22-30) mmol/L POC Total CO2 25 (22-30) mmol/L Anion Gap 13.0 (8-16) POC BUN 24 H (8-23) mg/dl BUN 23 (8-23) mg/dl Creatinine 0.7 (0.7-1.2) mg/dl POC Creatinine 0.8 (0.7-1.2) mg/dl GFR Calculation 90 Glucose 92 (70-105) mg/dL POC Glucose 89 (70-105) mg/dL Calcium 9.7 (8.6-10.4) mg/dl POC WB Ioniz Calcium 1.11 L (1.16-1.32) mmol/L Total Bilirubin 0.3 (0.0-1.0) mg/dL AST 24 (0-37) U/l ALT 21 (0-40) U/l Alkaline Phosphatase 135 H (39-117) U/L C-Reactive Protein < 0.3 (0.0-0.8) mg/dl Total Protein 7.6 (5.9-8.4) gm/dL Albumin 4.3 (3.2-5.2) gm/dL Globulin 3.3 (2.2-3.7) gm/dL Albumin/Globulin Ratio 1.3 (1.0-2.3) Lipase 19 (7-60) U/L - Radiology Data Radiology results reviewed: Yes I reviewed the patient's radiology results. Disposition Pt seen by SENIOR ACCOUNT REPRESENTATIVE/PA only: No Clinical Impression: Partial small bowel obstruction Abdominal pain Qualifiers: Abdominal location: generalized Qualified Code(s): R10.84 - Generalized abdominal pain Disposition: Xfer As Inpt ([facility]) Condition: Fair Referrals: Nahid Ahuja DO [Primary Care Provider] -
[2019-06-26 16:59] LABS: Basophils # (Auto) 0.05 K/mcL (0.00-0.30); Basophils % (Auto) 0.6 % (0.0-2.0); Eosinophils # (Auto) 0.05 K/mcL (0.00-0.70); Eosinophils % (Auto) 0.6 % (0.0-7.0); Granulocytes % (Auto) 78.3 % (38.0-78.0); Hemoglobin 13.8 g/dL (13.7-17.5); Lymphocytes # (Auto) 0.95 K/mcL (1.50-4.80); Lymphocytes % (Auto) 11.2 % (15.5-49.0); Mean Cell Volume 94.8 fL (80.0-100.0); Mean Corpuscular HGB Conc 34.5 g/dL (31.0-36.0); Mean Platelet Volume 10.2 fL (7.4-10.4); Monocytes # (Auto) 0.79 K/mcL (0.10-0.90); Monocytes % (Auto) 9.3 % (1.0-12.0); Platelet Count 306 K/mcL (140-440); RBC 4.22 M/mcL (4.63-6.08); Red Cell Distribution Width 12.7 % (11.5-14.5); WBC 8.5 K/mcL (4.50-11.00)
[2019-06-26] MEDS ORDERED: NALOXONE HCL 0.4 MG/ML VIAL IV PRN (17:16)
[2019-06-26] MEDS ORDERED: ONDANSETRON 4 MG/2 ML VIAL IV PRN (17:16)
[2019-06-26 17:21] LABS: Chloride 97 mmol/L (96-108)
[2019-06-26 17:23] LABS: ALT/SGPT 21 U/l (0-40); AST/SGOT 24 U/l (0-37); Albumin 4.3 gm/dL (3.2-5.2); Albumin/Globulin Ratio 1.3 (1.0-2.3); Alkaline Phosphatase 135 U/L (39-117); Bilirubin,Total 0.3 mg/dL (0.0-1.0); Blood Urea Nitrogen 23 mg/dl (8-23); C-Reactive Protein < 0.3 mg/dl (0.0-0.8); Calcium 9.7 mg/dl (8.6-10.4); Carbon Dioxide 23 mmol/L (22-30); Globulin 3.3 gm/dL (2.2-3.7); Glomerular Filtration Rate 90; Glucose 92 mg/dL (70-105)
[2019-06-26] MEDS ORDERED: LIDOCAINE 2% URO-JET 5 ML JEL.PF.APP UR ONE (17:27)
[2019-06-26] MEDS ORDERED: LIDOCAINE JEL 2% 1 TUBE 5GM TOPICAL ONE (17:29)
[2019-06-26 17:46] LABS: Appearance,Urine CLEAR; Bacteria,Urine 0 /hpf (0); Bilirubin,Urine NEG (NEG); Color,Urine YELLOW; Culture Indicated,Urine NO; Glucose,Urine (UA) NEGATIVE (NEG); Ketones,Urine NEG (NEG); Leukocyte Esterase,Urine NEG /uL (NEG); Mucus,Urine FEW /hpf (0); Nitrate,Urine NEG (NEG); Protein,Urine NEG (NEG); Specific Gravity,Urine 1.023 (1.000-1.035); Sulfosalicylic Acid,Urine NEG (NEG); Urine Blood NEG mg/dL (<0.03); Urine RBC 5 /hpf (0-1); Urine Squamous Epithelial Cell < 1 /hpf (0-4); Urine WBC 1 /hpf (0-4); Urobilinogen,Urine NEG (NEG)
[2019-06-26] MEDS: LACTATED RINGERS 1,000 ML IV SCH (18:08)
[2019-06-26] MEDS ORDERED: DIATRIZOATE MEGLU/DIATRIZO SOD 30 ML BOTTLE PO ONE (18:47)
[2019-06-26] MEDS ORDERED: ACETAMINOPHEN 1,000 MG/100 ML BOTTLE IV ONE (19:52)
[2019-06-26] MEDS ORDERED: HYDROmorphone 2 MG/ML VIAL IV PRN (19:55)
[2019-06-26] MEDS: ACETAMINOPHEN 1,000 MG/100 ML BOTTLE IV SCH (20:27)
[2019-06-26] MEDS: KETOROLAC 15 MG/ML VIAL IV PRN (21:19)
[2019-06-27] MEDS: LACTATED RINGERS 1,000 ML IV SCH ×4 (00:29→22:41)
[2019-06-27] MEDS: ACETAMINOPHEN 1,000 MG/100 ML BOTTLE IV SCH ×4 (01:58→20:18)
--- NOTE | 2019-06-27 09:29 | Cat Scan Report ---
History: Abdominal pain TECHNIQUE: The patient was imaged following intravenous contrast scanning during the portal venous phase from the diaphragm to the symphysis pubis. Sagittal and coronal reformats were created. FINDINGS: There is severe dilatation of both intra and extrahepatic bile ducts. The gallbladder has been removed. Common bile duct abruptly tapers to normal caliber at the ampulla. Common hepatic duct measures up to 1.9 cm. In The head of the pancreas the common bile duct is 1.6 cm. This is a chronic stable finding with no change from the prior CT done on 06/13/19. There is a band of low attenuation tissue in the liver parenchyma in segment seven. It measures approximately 2.5 x 5 cm in size. This has remained stable and may be scar tissue. The spleen is normal in size and homogeneous. There is no mass or inflammation and the pancreas and the pancreatic duct is nondilated. The adrenals are normal. A large lobulated cyst is present in the middle third of the right kidney area and measures 6.2 x 6.2 x 6.6 cm. There are two small calculi in the left kidney. They measure 2 mm in size. In the lower pole of the right kidney there are two nonobstructing stones. The larger measures 2.5 x 5 mm. There is no hydronephrosis. There is no cyst in the left kidney. The ureters are decompressed. The stomach is distended with a large amount of fluid. The duodenum is dilated and distorted. There is a row surgical sutures around the inferior portion of the second segment. There are soft tissue nodular densities along the wall of the second and third portions of the duodenum, located adjacent to rows of surgical sutures. These were present on the recent CT done on 06/13/19 but may have enlarged. These are not causing small bowel obstruction. The duodenum is less distended today than it was previously. However, there is now increased dilatation of the jejunum and proximal ileum. There are a few air-fluid levels. There is a transition point to relatively normal caliber mid ileum in the right midpelvis, at the level of the acetabular roof. This transition segment measures approximately 7 cm in length and the wall is 8 mm in thickness. The distal ileum and ileocecal valve are normal. There is scar tissue and small reactive lymph nodes in the root of the mesentery. This has remained stable. Normal amount of gas and stool are present in the colon. The colon is not distended. There are couple noninflamed diverticula in the sigmoid colon. Urinary bladder is decompressed. The prostate is mildly enlarged. Seminal vesicles are normal in size. No ascites is present. Advanced degenerative disc disease and arthritis in the lumbar spine and moderate degeneration in the lower thoracic spine. IMPRESSION: Partial mid small bowel obstruction. There is a segment of mid ileum with thickened wall. Does the patient has known inflammatory bowel disease? This is less likely due to ischemic bowel. Distended and distorted duodenum following prior surgery. There are nonspecific nodules along the wall of the duodenum measuring up to 2.2 cm in size. 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 Gabriel was called with the results Interpreted and Authenticated by: Barney Fuchs 06/27/19
--- NOTE | 2019-06-27 09:29 | XRay Report ---
HISTORY: Small bowel obstruction a nasogastric tube insertion FINDINGS: Nasogastric tube has been inserted into the fundus the stomach. The stomach is now decompressed. There are several loops of mildly dilated small bowel in the left upper quadrant. Lung bases are clear. No free intra-abdominal air is present. IMPRESSION: Decompressed stomach following insertion of a nasogastric tube Interpreted and Authenticated by: Barney Fuchs 06/27/19
[2019-06-27] MEDS: KETOROLAC 15 MG/ML VIAL IV PRN (10:13)
--- NOTE | 2019-06-27 14:26 | General Surg History&Physical ---
History of Present Illness Patient information: Note initiated : 06/27/19 at 2:25 pm Service Date, if different from initiated Date: [] Patient: Luc Major 79 y/o M admitted on 06/26/19 for abdominal pain. Chief Complaint: [] HPI: Mr. Major is a 79 year old M admitted for partial small bowel obstruction. The patient has a few hour history of severe upper abdominal pain with nausea, vomiting. He has had multiple episodes of similar problems in the past. He was admitted in March and April for similar situations but decompressed. He has had 2 small bowel resections of the proximal jejunum and distal duodenum In the past. He usually has difficulty at the site of his previous anastomoses. He has not needed previous operative therapy since his original surgery. He is admitted and will have nasogastric decompression followed by small bowel follow- through. Review of Systems - Constitutional anorexia, malaise, weakness, weight loss - EENT Nose, mouth and throat: dizziness, headache(s) - Cardiovascular dyspnea on exertion, lightheadedness, orthopnea, syncope - Respiratory dyspnea on exertion, no cough, no chest congestion - Gastrointestinal abdominal pain, bloating, change in bowel habits, change in stool character, dyspepsia, nausea, vomiting - Genitourinary change in urinary stream, urinary frequency, urinary incontinence, urinary urgency - Musculoskeletal arthralgias, muscle cramps, muscle weakness, myalgias, neck pain - Integumentary no pruritus, no rash - Neurological convulsions, tremor(s) - Psychiatric anxiety, depression - Endocrine fatigue - Hematologic/Lymphatic easy bleeding, easy bruising, no lymphadenopathy - Allergic/Immunologic no tongue swelling, no throat swelling, no seasonal rhinorrhea, no uticaria, no wheezing, no lip swelling Past History Past medical history: History of supraventricular tachycardia. BPH with bladder outlet obstruction. Degenerative joint disease. History of kidney stone Past surgical history: Cholecystectomy. Small bowel resection 2 Past family history: A uterine malignancy. History of heart disease Past social history: Never tobacco use Denies drug use Occasional alcohol use Medications and Allergies Home Medications Medication Instructions Recorded Confirmed Type traZODone HCL [Desyrel] 150 mg PO HS 05/29/15 06/26/19 History apixaban 5 mg tablet 5 mg PO BID 07/31/18 06/26/19 History aspirin 81 mg chewable tablet 81 mg PO QDAY 07/31/18 06/26/19 History cyanocobalamin (vitamin B-12) 500 1,000 mcg PO QDAY 07/31/18 06/26/19 History mcg tablet duloxetine 30 mg capsule,delayed 30 mg PO TID 07/31/18 06/26/19 History release metoprolol succinate 25 mg 25 mg PO PRN PRN 07/31/18 06/26/19 History tablet,extended release 24 hr polyethylene glycol 3350 17 17 gm PO BID g 07/31/18 06/26/19 History gram/dose oral powder riboflavin (vitamin B2) 100 mg 400 mg PO QDAY tab 10/29/18 06/26/19 History tablet Ascorbate Calcium [Vitamin C] 500 mg PO DAILY 03/02/19 06/26/19 History Levothyroxine Sodium [Euthyrox] 200 mcg PO AC 03/02/19 06/26/19 History Dexlansoprazole [Dexilant] 60 mg PO DAILY 04/13/19 06/26/19 History tamsulosin 0.4 mg capsule 0.4 mg PO BID #180 cap 05/11/19 06/26/19 Rx LORazepam [Lorazepam] 0.25 mg PO DAILY 06/26/19 06/26/19 History Pyridostigmine [place] 60 mg PO TID 06/26/19 06/26/19 History Allergies Allergy/AdvReac Type Severity Reaction Status Date / Time No Known Drug Allergies Allergy Verified 06/22/19 13:18 Exam Temp Pulse Resp BP Pulse Ox 98.5 F 76 20 117/75 93 06/27/19 12:06/27/19 12:06/27/19 12:06/27/19 12:06/27/19 12:00 - General physical appearance well developed, well nourished, no distress, cachectic, chronically ill - Eyes PERRL, normal ocular movement - ENT normal pinna, normal nares, normal mucosa, no hearing loss, no congestion - Head Head exam IM: Present: atraumatic, normocephalic - Neck no masses, no bruits, trachea midline, no lymphadenopathy, no venous distension - Cardiovascular Cardiovascular exam IM: Present: normal rate and rhythm, RRR, +S1, +S2. Absent: JVD, tachycardia - Respiratory normal expansion, normal respiratory effort, clear to percussion, clear to auscultation - Abdomen Abdomen: Present: soft, non tender, bowel sounds, distended (nondistended, with good active bowel sounds) Hernia: Present: none - Genitourinary Present: normal penis with no external lesions - Integumentary Present: no rash, no growths, no abnormal pigmentation - Neurologic Present: normal coordination, normal sensation - Musculoskeletal Present: normal gait, normal posture - Psychiatric Present: oriented to time, oriented to person, oriented to place, speech is no rmal, memory intact Assessment and Plan (1) Abdominal pain Status: Acute Qualifiers: Abdominal location: generalized Qualified Code(s): R10.84 - Generalized abdominal pain (2) Partial small bowel obstruction Nasogastric decompression. Small bowel follow-through Reglan 10 mg IV every 6. Follow-up abdominal x-rays in the morning Status: Acute (3) Anxiety disorder Status: Chronic (4) DDD (degenerative disc disease) Status: Chronic (5) GERD (gastroesophageal reflux disease) Status: Chronic (6) History of migraine headaches Status: Chronic
[2019-06-27] MEDS: METOCLOPRAMIDE 10 MG/2 ML VIAL IV SCH ×2 (17:27→23:31)
[2019-06-27] MEDS ORDERED: LORazepam 2 MG/ML VIAL IV PRN (19:33)
[2019-06-27] MEDS ORDERED: BENZOCAINE 1 SPRAY BOTTLE TOPICAL PRN (19:34)
[2019-06-28] MEDS: ACETAMINOPHEN 1,000 MG/100 ML BOTTLE IV SCH ×3 (02:18→14:37)
[2019-06-28] MEDS: LACTATED RINGERS 1,000 ML IV SCH ×2 (06:02→14:44)
[2019-06-28] MEDS: METOCLOPRAMIDE 10 MG/2 ML VIAL IV SCH ×3 (06:02→18:36)
[2019-06-28 06:52] LABS: Basophils # (Auto) 0.07 K/mcL (0.00-0.30); Basophils % (Auto) 0.9 % (0.0-2.0); Eosinophils # (Auto) 0.08 K/mcL (0.00-0.70); Hematocrit 34.2 % (40.1-51.0); Hemoglobin 11.7 g/dL (13.7-17.5); Lymphocytes # (Auto) 0.63 K/mcL (1.50-4.80); Lymphocytes % (Auto) 7.7 % (15.5-49.0); Mean Cell Volume 95.3 fL (80.0-100.0); Mean Corpuscular HGB Conc 34.2 g/dL (31.0-36.0); Mean Platelet Volume 10.1 fL (7.4-10.4); Monocytes # (Auto) 0.85 K/mcL (0.10-0.90); Monocytes % (Auto) 10.4 % (1.0-12.0); Platelet Count 246 K/mcL (140-440); RBC 3.59 M/mcL (4.63-6.08); Red Cell Distribution Width 12.3 % (11.5-14.5); WBC 8.2 K/mcL (4.50-11.00)
[2019-06-28 07:18] LABS: ALT/SGPT 16 U/l (0-40); AST/SGOT 19 U/l (0-37); Albumin 3.3 gm/dL (3.2-5.2); Albumin/Globulin Ratio 1.3 (1.0-2.3); Alkaline Phosphatase 116 U/L (39-117); Bilirubin,Direct < 0.2 mg/dL (0.0-0.3); Bilirubin,Total 0.5 mg/dL (0.0-1.0); Blood Urea Nitrogen 15 mg/dl (8-23); Calcium 8.6 mg/dl (8.6-10.4); Carbon Dioxide 21 mmol/L (22-30); Chloride 99 mmol/L (96-108); Globulin 2.6 gm/dL (2.2-3.7); Glomerular Filtration Rate 96; Glucose 77 mg/dL (70-105); Lactate Dehydrogenase 155 U/L (94-250); Phosphorous 3.5 mg/dL (2.7-4.5); Triglycerides 50 mg/dl (<150); Uric Acid 3.4 mg/dL (2.5-8.0)
--- NOTE | 2019-06-28 12:31 | XRay Report ---
CLINICAL INFORMATION: Follow-up with small bowel obstruction COMPARISON: Plain films 06/26/2019. TECHNIQUE: Following residential subcontractor film, water-soluble contrast was administered orally and serial images were obtained over the stomach small and large bowel for total of 40 minutes. Fluoroscopy was then performed by the radiologist. Total fluoroscopy time 29 seconds. FINDINGS: The stomach is normal in size and configuration with normal rugal fold pattern without focal pathology. Duodenum, jejunum and ileum are normal in contour and caliber, uniform plica circulares and normal [place]. No obstruction appreciated. Small bowel transit time approximately 30 minutes IMPRESSION: Normal Interpreted and Authenticated by: Nahid Sandoval 06/28/19
--- NOTE | 2019-06-28 13:38 | General Surgery Progress Note ---
Subjective Patient reports: feels better, pain is less, flatus, bowel movement, diarrhea, afebrile Narrative: Note initiated : 06/28/19 at 1:36 pm Service Date, if different from initiated Date: [] Patient: Luc Major 79 y/o M admitted on 06/26/19 for abdominal pain. Chief Complaint: [Patient is doing well. The small bowel follow-through showed rapid transit through the entire small bowel with no evidence of obstruction. Transit time was 30 minutes. He's had multiple bowel movements since that time. White blood count 8.2, hemoglobin 11.7, hematocrit 34.2, potassium 3.3, BUN 15, creatinine 0.6. He has no abdominal discomfort] Objective Temp Pulse Resp BP Pulse Ox 98.7 F 84 18 132/82 95 06/28/19 08:00 06/28/19 08:00 06/28/19 08:00 06/28/19 08:00 06/28/19 08:00 - Additional Data Intake & Output - Last 24 hours: Intake & Output 06/26/19 06/27/19 06/28/19 06/29/19 05:59 05:59 05:59 05:59 Intake Total 1153 4400 395 Output Total 1350 1650 1250 Balance -197 2750 -855 Weight 151 lb 8 oz 149 lb - General physical appearance well developed, no distress, chronically ill - Eyes PERRL, normal ocular movement - ENT normal pinna, normal nares, normal mucosa, no hearing loss, no congestion - Neck no masses, no bruits, trachea midline, no lymphadenopathy, no venous distension - Respiratory normal expansion, normal respiratory effort, clear to auscultation - Cardiovascular Cardiovascular exam: Present: normal rate and rhythm, RRR, +S1, +S2. Absent: JVD, tachycardia - Abdomen non tender, bowel sounds (present), surgical scars (none), masses (none), distended (abdomen is soft and nondistended; he has good active bowel sounds; there is no tenderness; he has no mass) - Integumentary no rash, no growths, no abnormal pigmentation - Neurologic normal coordination, normal sensation - Musculoskeletal normal gait, normal posture - Psychiatric oriented to time, oriented to person, oriented to place, speech is normal, memory intact - Labs 06/28/19 05:35 06/28/19 05:35 Diabetes panel 06/28/19 Range/Units 05:35 Sodium 136 (133-145) mmol/L Potassium 3.3 (3.3-5.1) mmol/L Chloride 99 (96-108) mmol/L Carbon Dioxide 21 L (22-30) mmol/L BUN 15 (8-23) mg/dl Creatinine 0.6 L (0.7-1.2) mg/dl Glucose 77 (70-105) mg/dL Calcium 8.6 (8.6-10.4) mg/dl AST 19 (0-37) U/l ALT 16 (0-40) U/l Alkaline Phosphatase 116 (39-117) U/L Total Protein 5.9 (5.9-8.4) gm/dL Albumin 3.3 (3.2-5.2) gm/dL Triglycerides 50 (<150) mg/dl Calcium panel 06/28/19 Range/Units 05:35 Calcium 8.6 (8.6-10.4) mg/dl Phosphorus 3.5 (2.7-4.5) mg/dL Albumin 3.3 (3.2-5.2) gm/dL Pituitary panel 06/28/19 Range/Units 05:35 Sodium 136 (133-145) mmol/L Potassium 3.3 (3.3-5.1) mmol/L Chloride 99 (96-108) mmol/L Carbon Dioxide 21 L (22-30) mmol/L BUN 15 (8-23) mg/dl Creatinine 0.6 L (0.7-1.2) mg/dl Glucose 77 (70-105) mg/dL Calcium 8.6 (8.6-10.4) mg/dl Adrenal panel 06/28/19 Range/Units 05:35 Sodium 136 (133-145) mmol/L Potassium 3.3 (3.3-5.1) mmol/L Chloride 99 (96-108) mmol/L Carbon Dioxide 21 L (22-30) mmol/L BUN 15 (8-23) mg/dl Creatinine 0.6 L (0.7-1.2) mg/dl Glucose 77 (70-105) mg/dL Calcium 8.6 (8.6-10.4) mg/dl Total Bilirubin 0.5 (0.0-1.0) mg/dL AST 19 (0-37) U/l ALT 16 (0-40) U/l Alkaline Phosphatase 116 (39-117) U/L Total Protein 5.9 (5.9-8.4) gm/dL Albumin 3.3 (3.2-5.2) gm/dL Assessment and Plan (1) Abdominal pain Status: Acute Assessment and plan: abdominal pain has resolved. No distention noted Current Visit: Yes (2) Partial small bowel obstruction Status: Acute Assessment and plan: Partial obstruction has resolved. Diet will be advanced. Nasogastric tube was discontinued Current Visit: Yes (3) Anxiety disorder Status: Chronic Current Visit: No (4) DDD (degenerative disc disease) Status: Chronic Current Visit: No (5) GERD (gastroesophageal reflux disease) Status: Chronic Current Visit: No (6) History of migraine headaches Status: Chronic Current Visit: No - Time Spent With Patient Total time spent is greater than 50% in coordination of care (as documented) at patient's floor/unit and/or counseling patient:
[2019-06-28] MEDS ORDERED: ACETAMINOPHEN 1,000 MG/100 ML BOTTLE IV PRN (14:38)
[2019-06-28] MEDS: 0.9 % SODIUM CHLORIDE 1,000 ML IV SCH (14:39)
[2019-06-28] MEDS ORDERED: traZODone HCL 150 MG TABLET PO SCH (21:00)
[2019-06-28] MEDS: PYRIDOSTIGMINE 60 MG TABLET PO SCH (21:42)
[2019-06-28] MEDS: DULoxetine 30 MG CAPSULE PO SCH (21:42)
[2019-06-28] MEDS: TAMSULOSIN 0.4 MG CAPSULE PO SCH (21:43)
[2019-06-29] MEDS: METOCLOPRAMIDE 10 MG/2 ML VIAL IV SCH ×2 (00:38→06:30)
[2019-06-29] MEDS: 0.9 % SODIUM CHLORIDE 1,000 ML IV SCH (03:45)
[2019-06-29 07:11] LABS: ALT/SGPT 14 U/l (0-40); AST/SGOT 18 U/l (0-37); Albumin 3.4 gm/dL (3.2-5.2); Albumin/Globulin Ratio 1.3 (1.0-2.3); Alkaline Phosphatase 108 U/L (39-117); Bilirubin,Direct < 0.2 mg/dL (0.0-0.3); Bilirubin,Total 0.3 mg/dL (0.0-1.0); Blood Urea Nitrogen 10 mg/dl (8-23); Calcium 8.6 mg/dl (8.6-10.4); Carbon Dioxide 25 mmol/L (22-30); Chloride 107 mmol/L (96-108); Globulin 2.6 gm/dL (2.2-3.7); Glomerular Filtration Rate 96; Glucose 92 mg/dL (70-105); Lactate Dehydrogenase 158 U/L (94-250); Phosphorous 2.7 mg/dL (2.7-4.5); Triglycerides 56 mg/dl (<150); Uric Acid 3.5 mg/dL (2.5-8.0)
[2019-06-29 07:13] LABS: Basophils # (Auto) 0.04 K/mcL (0.00-0.30); Basophils % (Auto) 0.7 % (0.0-2.0); Eosinophils # (Auto) 0.11 K/mcL (0.00-0.70); Granulocytes % (Auto) 71.7 % (38.0-78.0); Hematocrit 34.4 % (40.1-51.0); Hemoglobin 11.8 g/dL (13.7-17.5); Lymphocytes # (Auto) 0.62 K/mcL (1.50-4.80); Lymphocytes % (Auto) 11.2 % (15.5-49.0); Mean Cell Volume 96.4 fL (80.0-100.0); Mean Corpuscular HGB Conc 34.3 g/dL (31.0-36.0); Mean Platelet Volume 10.4 fL (7.4-10.4); Monocytes % (Auto) 14.4 % (1.0-12.0); Platelet Count 233 K/mcL (140-440); RBC 3.57 M/mcL (4.63-6.08); Red Cell Distribution Width 12.8 % (11.5-14.5); WBC 5.5 K/mcL (4.50-11.00)
[2019-06-29] MEDS: DULoxetine 30 MG CAPSULE PO SCH (09:16)
[2019-06-29] MEDS: TAMSULOSIN 0.4 MG CAPSULE PO SCH (09:16)
[2019-06-29] MEDS: PYRIDOSTIGMINE 60 MG TABLET PO SCH (09:16)
--- NOTE | 2019-06-29 12:59 | Discharge Summary ---
Providers - Providers Patient information: Note initiated : 06/29/19 at 12:57 pm Service Date, if different from initiated Date: [] Patient: Luc Major 79 y/o M admitted on 06/26/19 for abdominal pain. Chief Complaint: [] Date of admission: 06/27/19 Discharge date: 06/29/19 Attending physician: Jada Carr Hospitalization Hospital Course: 79-year-old male who was admitted with partial small bowel obstruction on 27 June. The patient has had multiple episodes of partial obstruction in the past. He presented with history of abdominal pain, bloating, nausea, vomiting. He had dilated stomach and proximal small bowel with questionable transition point in the mid jejunum. These findings in the past. He was placed on nasogastric suction and then given small bowel follow-through. He had transit through the small bowel in less than 1 hour and has had multiple bowel movements since that time. He has been treated with full liquid diet and has tolerated this well. White blood count 5.5, hemoglobin 11.8, hematocrit 34.4. Inpatient panel is normal. Patient is stable and will be discharged home today. Discharge diagnosis: partial small bowel obstruction Secondary discharge diagnosis: Degenerative joint disease. History of SVT, stable. Chronic anemia Reason for admission: abdominal pain, nausea, vomiting Procedures: None Pertinent studies/significant findings: Single-contrast small bowel follow CT of abdomen and pelvis Complications: None Exam Temp Pulse Resp BP Pulse Ox 98.6 F 74 16 126/77 96 06/29/19 11:56 06/29/19 04:09 06/29/19 11:56 06/29/19 11:56 06/29/19 11:56 - General physical appearance well developed, well nourished, no distress, no pain - Eyes PERRL, normal ocular movement - ENT normal pinna, normal nares, normal mucosa, no hearing loss, no congestion - Head Head exam IM: Present: atraumatic, normocephalic - Neck no masses, no bruits, trachea midline, no lymphadenopathy, no venous distension - Cardiovascular Cardiovascular exam IM: Present: normal rate and rhythm - Respiratory normal expansion, normal respiratory effort, clear to percussion, clear to auscultation - Abdomen Abdomen: Present: soft, non tender (no tenderness to palpation), bowel sounds (very good hyperactive bowel sounds), distended ( ) Hernia: Present: none - Genitourinary Present: normal penis with no external lesions - Integumentary Present: no rash, no growths, no abnormal pigmentation - Neurologic Present: normal coordination, normal sensation - Musculoskeletal Present: normal gait, normal posture - Psychiatric Present: oriented to time, oriented to person, oriented to place, speech is normal, memory intact Discharge Plan - Patient/Caregiver Discharge Instructions Activity: increase activity as tolerated Diet: Regular Diet (advanced to regular diet as tolerated) - Follow up Plan Follow up with: Nahid Ahuja DO [Primary Care Provider] - Jada Carr MD [Physician] - Disposition: Home, Self-Care Prognosis: Good Rehab Potential: Good I certify that the patient requires SNF services.: No Overall status at discharge: patient is back to baseline Pending Studies Resuscitation Status Full Code Diet Full Liquid Diet Start [id number] Benzocaine (Cetacaine) 1 spray TOPICAL ONCE PRN PRN Reason: Sore Throat Last Admin: 06/27/19 20:49 Dose: 1 spray Documented by: NANCY Duloxetine HCl (Cymbalta) 30 mg PO TID [facility] Last Admin: 06/29/19 09:16 Dose: 30 mg Documented by: Admin: 06/28/19 21:42 Dose: 30 mg Documented by: [email or web address] Hydromorphone HCl (Dilaudid) 1 mg IV Q2HP PRN; Protocol PRN Reason: Per Pain Protocol Last Admin: 06/26/19 21:58 Dose: 1 mg Documented by: NANCY Sodium Chloride (Sodium Chloride 0.9%) 1,000 mls @ 75 mls/hr IV .[id number] [facility] Last Admin: 06/29/19 03:45 Dose: 75 mls/hr Documented by: [email or web address] Infusion: 06/29/19 03:45 Dose: 75 mls/hr Documented by: [email or web address] Admin: 06/28/19 14:39 Dose: 75 mls/hr Documented by: [email or web address] Ketorolac Tromethamine (Toradol) 15 mg IV Q6HP PRN PRN Reason: Per Pain Protocol Last Admin: 06/27/19 10:13 Dose: 15 mg Documented by: [email or web address] Admin: 06/26/19 21:19 Dose: 15 mg Documented by: NANCY Lorazepam (Ativan) 0.5 mg IV Q6HP PRN PRN Reason: ANXIETY/SEDATION Last Admin: 06/27/19 20:18 Dose: 0.5 mg Documented by: NANCY Metoclopramide HCl (Reglan) 10 mg IV Q6 [facility] Last Admin: 06/29/19 06:30 Dose: Not Given Documented by: Admin: 06/29/19 00:38 Dose: Not Given Documented by: Admin: 06/28/19 18:36 Dose: Not Given Documented by: [email or web address] Admin: 06/28/19 12:04 Dose: Not Given Documented by: Admin: 06/28/19 06:02 Dose: 10 mg Documented by: Admin: 06/27/19 23:31 Dose: 10 mg Documented by: Admin: 06/27/19 17:27 Dose: 10 mg Documented by: [email or web address] Pyridostigmine [place] (Mestinon) 60 mg PO TID [facility] Last Admin: 06/29/19 09:16 Dose: 60 mg Documented by: Admin: 06/28/19 21:42 Dose: 60 mg Documented by: DOMINGO Tamsulosin HCl (Flomax) 0.4 mg PO BID [facility] Last Admin: 06/29/19 09:16 Dose: 0.4 mg Documented by: Admin: 06/28/19 21:43 Dose: Not Given Documented by: DOMINGO Trazodone HCl (Desyrel) 150 mg PO HS [facility] Last Admin: 06/28/19 21:42 Dose: 150 mg Documented by: DOMINGO Shift Summary 06/29/19 03:48 Shift Summary by Roseanne Hernandez slept most of the night. Up ad donald in room, voiding per urinal. Had several loose BM yesterday; none tonight. No PRN meds. Will d/c home today. Initialized on 06/29/19 03:48 - END OF NOTE
== END 2019-06-29 14:15 | disposition home or self-care (01) | DRG 390 ==
LOC: MEDSUR 15:52 → ED 15:52 → MEDSUR 18:45 → OBSVTOIN 18:46
PROVIDERS: ADMIT Family Medicine Adult Medicine; ATTEND Family Medicine Adult Medicine

== ENCOUNTER 2020-06-29 21:59 | Observation (INO) ==
[2020-06-29] MEDS ORDERED: IOPAMIDOL 100 ML BOTTLE IV ONE (22:00)
[2020-06-29] MEDS ORDERED: ONDANSETRON 4 MG/2 ML VIAL IV ONE (22:24)
--- NOTE | 2020-06-29 22:28 | Emergency Department Note ---
Abdominal Pain HPI General Chief Complaint: Abdominal Pain Stated Complaint: abdominal pain Time Seen by Provider: 06/29/20 22:08 Source: patient Mode of arrival: wheelchair Limitations: no limitations History of Present Illness HPI Narrative: Narrative: This pleasant 80-year-old gentleman has a history of small bowel obstructions and recurring abdominal pain acute episodes. He has had several surgeries by Dr. Carr. His pain now is located around the middle of his abdomen and moderately large area. It started about an hour after his dinner which dinner was around 4 PM. There is been some associated nausea and vomiting. He has a history of diverticulitis. His last bowel movement was earlier today and was normal. He denies fevers chills or sweats. He has some history of hematuria resolved with Dr. Gar and I believe prostate procedure. He denies dysuria frequency urgency. He has had a history of kidney stones. He denies hematochezia. He only uses MiraLAX occasionally when he feels like he needs to go and has troubles but has had a fair amount of diarrhea. He later also added that he rarely passes gas and so it is hard to know if he has had any change recently. He reports some juicy bowel movements initially today and then had some firmness and a third 1 but then again a juicy bowel movement and then had solids and has BM and it was 1/2-hour after that that he developed a stomach pain. He indicates that he frequently has bowel movements 5-6 times per day. He does have accidents (fecal incontinence) and this may happen several times a week. Related Data Home Medications Medication Instructions Recorded Confirmed apixaban 5 mg tablet 5 mg PO BID 07/31/18 06/29/20 cyanocobalamin (vitamin B-12) 500 1,000 mcg PO QDAY 07/31/18 06/29/20 mcg tablet riboflavin (vitamin B2) 100 mg 400 mg PO QDAY tab 10/29/18 06/29/20 tablet ascorbate calcium (vitamin C) 500 mg PO DAILY 03/02/19 06/29/20 dexlansoprazole 60 mg PO DAILY 04/13/19 06/29/20 ketorolac 5 ml OP DAILY PRN 12/02/19 06/29/20 metoprolol succinate 25 mg PO DAILY PRN 12/02/19 06/29/20 polyethylene glycol 3350 17 8.5 g PO QDAY g 02/09/20 06/29/20 gram/dose oral powder escitalopram oxalate 10 mg PO DAILY 06/29/20 06/29/20 Previous Rx's Medication Instructions Recorded pyridostigmine bromide 60 mg tablet 60 mg PO TID #270 tab 07/15/19 iron sucrose 200 mg iron/10 mL 400 mg IV .COMPLEX #20 ml 09/13/19 intravenous solution levothyroxine 200 mcg tablet 200 mcg PO QDAY #90 tab 02/14/20 trazodone 50 mg tablet 150 mg PO HS #270 tab 04/03/20 tamsulosin 0.4 mg capsule 0.4 mg PO BID #180 cap 05/16/20 Allergies Allergy/AdvReac Type Severity Reaction Status Date / Time No Known Drug Allergies Allergy Verified 04/03/20 09:52 Review of Systems ROS ROS Narrative: Narrative: No longer has hematochezia Has what he describes as visual or ophthalmic migraines with V-shaped lightening bolts and will switch to the other side. Has some generalized weakness. No lightheadedness/dizziness. He is rather tired. He has had his thyroid checked. This seems fairly all the time. Does seem to bruise somewhat easily. He has been getting iron infusions for his anemia. [facility] Narrative Patient History Narrative: Narrative: Denies history of myocardial infarction, asthma, renal disease, anxiety, depression, CVA. Medical/Surgical/Family History All Active Problems (Updated 06/30/20 @ 02:04 by Ruben Gabriel DO) SBO (small bowel obstruction) (Acute) Chronic anticoagulation (Chronic) Hemorrhoid prolapse (Acute) Nummular eczema (Chronic) Cognitive impairment (Chronic) Fatigue (Chronic) Fecal occult blood test positive (Chronic) Anxiety and depression (Chronic) Iron deficiency anemia (Chronic) Depression (Chronic) Daytime sleepiness (Chronic) Osteoarthritis (Chronic) Anxiety (Chronic) Asthma (Chronic) History of small bowel obstruction (Chronic) Gastroparesis (Chronic) History of urinary calculi (Chronic) Hematuria (Chronic) A-fib (Chronic) GERD (gastroesophageal reflux disease) (Chronic) Hyperlipemia (Chronic) Anxiety disorder (Chronic) Anemia (Chronic) B12 deficiency (Chronic) Hypothyroidism (Chronic) DDD (degenerative disc disease) (Chronic) BPH with urinary obstruction (Chronic) BPH (benign prostatic hypertrophy) (Chronic) History of migraine headaches (Chronic) Medical History (Updated 06/30/20 @ 02:04 by Ruben Gabriel DO) A-fib (Chronic) Likely paroxysmal. Regular rate and rhythm on exam today. On Eliquis for anticoagulation. States metoprolol is as needed for heart rate greater than 120. Request cardiology records. Abdominal pain (Resolved) Abdominal pain (Resolved) Alternating constipation and diarrhea (Inactive) Patient is concerned about rectal prolapse after diarrhea Will discuss possible rectal prolapse with Dr. Carr Hold MiraLAX and use only as needed. Start Colace 100 mg daily Anemia (Chronic) Anxiety (Chronic) Likely worsening secondary to cognitive impairment. No longer taking lorazepam and Cymbalta. Continue Lexapro 20 mg daily. Anxiety and depression (Chronic) Reported. Taking duloxetine 30 mg 3 times daily and lorazepam 0.25 mg daily. Anxiety disorder (Chronic) Asthma (Chronic) B12 deficiency (Chronic) History of. Likely secondary to bowel resection. Check B12 level. Continue vitamin B12 1000 mcg p.o. daily for now. Bowel obstruction (Resolved ~03/02/19) BPH (benign prostatic hypertrophy) (Chronic) Taking Flomax twice daily. BPH with urinary obstruction (Chronic) Cerumen impaction (Inactive) Patient has been using Debrox a little bit at home. Successful repeat of ear lavage today. Cerumen removed from both ears. Chronic anticoagulation (Chronic) apixaban - afib? Daytime sleepiness (Chronic) Taking trazodone to help him sleep better at night, but continues to complain of daytime somnolence. Will investigate for worsening of anemia or thyroid. Likely needs to adjust sleep hygiene. DDD (degenerative disc disease) (Chronic) Depression (Chronic) Diverticulosis (Resolved) Fatigue (Chronic) Unknown etiology. Likely related to poor absorption versus hypothyroidism. Fecal occult blood test positive (Chronic) Appears to have chronic blood loss. Continue iron infusions We will check CBC and iron studies in [address] Corwin Carr to do colonoscopy next month Gastroparesis (Chronic) GERD (gastroesophageal reflux disease) (Chronic) Headache, post-traumatic, acute (Resolved) Hematuria (Chronic) History of migraine headaches (Chronic) History of small bowel obstruction (Chronic) Multiple episodes subsequent to partial small bowel resection May 2017 due to diverticulitis of the jejunum. Now taking pyridostigmine, per Dr. Carr, to help prevent recurrence. History of urinary calculi (Chronic) Not an active complaint. Follows with Dr. Gar. Hyperlipemia (Chronic) Reported in history. Not on statin. We will check lipid panel. Hypothyroidism (Chronic) On Synthroid 212 mcg daily. At this dose for 1 month now. Check TSH and free T4. Iron deficiency anemia (Chronic) Possibly multiple causes related to history of nephrolithiasis, diverticulitis, and small bowel resection. Hemoccult positive. Anemia has resolved, but iron remains low. Most recently, 1 week ago iron 59, transference saturation 19%. Continue Venofer infusions monthly We will check iron every 3 months. Kidney cyst, acquired (Inactive) Kidney stone (Resolved) Left flank pain (Resolved) Migraine (Resolved) Osteoarthritis (Chronic) Palpitations (Resolved) Partial obstruction of small intestine (Resolved) Partial small bowel obstruction (Resolved) Ptosis (Inactive) Renal cyst (Inactive) SBO (small bowel obstruction) (Resolved) SVT (supraventricular tachycardia) (Resolved) Urinary tract infection (Resolved) Surgical History H/O excision of ganglion cyst (Chronic) Right History of bowel resection (Chronic) x2, One in 2014 and 2016 initially in [place], [place], Dr. Taylor, then Traci Bhatti, [place], [place], Dr. Jameson History of cataract surgery (Chronic) History of cholecystectomy (Chronic ~1991) History of colonoscopy (Chronic) History of endoscopy (Chronic) Two since 2017 History of left shoulder replacement (Chronic ~2006) TANMAY Flores History of photovaporization of prostate (Chronic 09/06/14) Dr. Gar; transurethral History of right shoulder replacement (Chronic ~05/2015) Dr. So History of tonsillectomy (Acute) Family History (Updated 06/30/20 @ 01:51 by Ruben Gabriel DO) Colon cancer Grandmother Paternal Ovarian cancer Grandmother Maternal Alcoholism Mother Family/Other Arthritis Family/Other Migraines Mother Family/Other Cirrhosis of liver Father Mother Myocardial infarction Grandfather Paternal Emphysema lung Mother Cancer Family/Other Asthma Family/Other Social History Smoking Status: Never smoker Alcohol Intake Frequency: holiday/special occasion only Substance Use: does not use Exam Narrative Narrative: Narrative: General Limitations: no limitations General appearance: Present alert, in no apparent distress and nontoxic Head Head: Present atraumatic and normocephalic Eye Eye: Present PERRL (small, slightly reactive.) and EOMI ENT ENT: Present normal oropharynx and mucous membranes moist Neck Neck: Present trachea midline; Absent lymphadenopathy and thyromegaly Chest Chest: Present symmetric chest wall rise Respiratory Respiratory: Present normal lung sounds bilaterally; Absent respiratory distress, rales/crackles, wheezes, stridor, accessory muscle use and prolonged expiratory phase Cardiovascular Cardiovascular: Present regular rate and normal rhythm; Absent systolic murmur and diastolic murmur Adbominal Abdominal: Present soft and tenderness (Mild-moderate centrally.); Absent distention, guarding, rebound, rigidity, organomegaly and mass Extremities Extremities: Absent pedal edema, pretibial edema, calf tenderness and cyanosis Back Back: Absent CVA tenderness (R), CVA tenderness (L) and spinous process tenderness Neurological Neurological: Present alert and oriented X3 Psychiatric Psychiatric: Present normal affect, polite and pleasant; Absent depressed, agitated, anxious and poor eye contact Skin Skin: Present warm (WNL) and dry; Absent cyanosis and pallor Course Vital Signs Vital signs: Vital Signs Temperature 98.6 F 06/29/20 22:02 Pulse Rate 62 06/29/20 22:02 Respiratory Rate 18 06/29/20 22:02 Pulse Oximetry (%) 97 06/29/20 22:02 Temperature 98.6 F 06/29/20 22:02 Pulse Rate 66 06/30/20 00:31 Respiratory Rate 18 06/29/20 22:02 Blood Pressure 143/68 06/30/20 00:31 Pulse Oximetry (%) 93 06/30/20 00:31 [facility] Narrative Medical decision making narrative: Narrative: 10:12 PM - interviewed and examined. Some nausea and vomiting with abdominal pain and a significant history previous surgeries as well as recurring small bowel obstructions. He refers to a surgery and an unusual procedure of how they "hooked him back up". He is willing to stay here if needed. CT scan results do demonstrate a partial or complete small bowel obstruction. Question of an abscess although patient has not shown any sign of his concerns or problems. See labs as well below. EKG demonstrates rate of 56, left anterior fascicular block and some prolonged QT T but actually looks fairly well. Labs as below. Liver function tests and lipase are unremarkable. I spoke with Dr. Corwin Carr, general surgeon, who is agreeable to have patient be admitted, and have a small bowel follow-through in the morning. See transition orders. Patient is reluctant to say "DO NOT RESUSCITATE" because of his concerns for his who needs him needs to have quite a bit of help. But he also does not want to be chronically disabled and nonproductive. In the end he decides for a full code with time limitation of 15 minutes. Lab Data Result diagrams: 06/29/20 22:07 06/29/20 22:07 Labs: Lab Results 06/29/20 06/29/20 06/29/20 Range/Units 22:07 22:07 23:11 WBC 12.9 H (4.5-11.0) K/mcL RBC 4.20 L (4.50-5.90) M/mcL Hgb 14.2 (13.5-16.5) g/dL Hct 40.2 L (41.0-55.0) % MCV 95.7 (80.0-100.0) fL MCH 33.8 (26.0-34.0) pg MCHC 35.3 (31.0-36.0) g/dL RDW 12.6 (11.5-14.5) % Plt Count 228 (140-440) K/mcL MPV 10.4 (7.4-10.4) fL Neut % (Auto) 87.9 H (38.0-78.0) % Lymph % (Auto) 5.2 L (15.0-49.0) % [place] % (Auto) 6.3 (1.0-12.0) % Eos % (Auto) 0.3 (0.0-7.0) % Baso % (Auto) 0.3 (0.0-2.0) % Lymph # (Auto) 0.67 L (1.50-4.80) K/mcL [place] # (Auto) 0.81 (0.10-0.90) K/mcL Eos # (Auto) 0.04 (0.00-0.70) K/mcL Baso # (Auto) 0.04 (0.00-0.20) K/mcL Absolute Neutrophils 11.29 H (1.80-8.00) K/mcL Sodium 139 (133-145) mmol/L Potassium 3.5 (3.3-5.1) mmol/L Chloride 101 (96-108) mmol/L Carbon Dioxide 24 (22-30) mmol/L Anion Gap 14.0 (8.0-16.0) BUN 16 (8-23) mg/dL Creatinine 0.6 L (0.7-1.2) mg/dL POC Creatinine 0.6 (0.6-1.2) mg/dL GFR Calculation 96 Glucose 104 (70-105) mg/dL Calcium 9.0 (8.6-10.4) mg/dL Total Bilirubin 0.5 (0.1-1.0) mg/dL AST 18 (<40) U/L ALT 15 (<40) U/L Alkaline Phosphatase 119 H (39-117) U/L Total Protein 6.7 (5.9-8.4) gm/dL Albumin 4.1 (3.2-5.2) gm/dL Globulin 2.6 (2.2-3.7) gm/dL Albumin/Globulin Ratio 1.6 (1.0-2.3) Lipase 14 (7-60) U/L Urine Color Anaid Urine Appearance Clear (Clear) Urine pH 6.0 (5.0-9.0) Ur Specific [place] 1.033 (1.000-1.035) Urine Protein 30 A (Negative) mg/dL Urine Glucose (UA) Negative (Negative) mg/dL Urine Ketones 5 A (Negative) mg/dL Urine Occult Blood Negative (Negative) mg/dL Urine Nitrate Negative (Negative) Urine Bilirubin Negative (Negative) mg/dL Urine Urobilinogen Negative mg/dL Ur Leukocyte Esterase Negative (Negative) /ug Urine RBC 8 H (0-3) /hpf Urine WBC 1 (0-4) /hpf Ur Squamous Epith Cells < 1 (0-4) /hpf Urine Bacteria None (0) /hpf Urine Mucus Many A (None) /hpf Ur Culture Indicated? No Discharge Plan Patient/Caregiver Discharge Instructions Pt seen by [facility]/PA only: No Clinical Impression: SBO (small bowel obstruction) Patient Disposition: Xfer As Inpt ([facility]) Condition: Good Discharge Date/Time: 06/30/20 01:45 Discharge Location: [facility] Inpatient Discharge Comment: to room 109
[2020-06-29 22:29] LABS: POC Creatinine 0.6 mg/dL (0.6-1.2)
[2020-06-29] MEDS: HYDROmorphone 0.5 MG/0.5 ML SYRINGE IV PRN ×2 (22:42→23:27)
[2020-06-29 23:05] LABS: Basophils # (Auto) 0.04 K/mcL (0.00-0.20); Basophils % (Auto) 0.3 % (0.0-2.0); Eosinophils # (Auto) 0.04 K/mcL (0.00-0.70); Eosinophils % (Auto) 0.3 % (0.0-7.0); Hematocrit 40.2 % (41.0-55.0); Hemoglobin 14.2 g/dL (13.5-16.5); Lymphocytes # (Auto) 0.67 K/mcL (1.50-4.80); Lymphocytes % (Auto) 5.2 % (15.0-49.0); Mean Cell Volume 95.7 fL (80.0-100.0); Mean Corpuscular HGB Conc 35.3 g/dL (31.0-36.0); Mean Platelet Volume 10.4 fL (7.4-10.4); Monocytes # (Auto) 0.81 K/mcL (0.10-0.90); Monocytes % (Auto) 6.3 % (1.0-12.0); Neutrophils % (Auto) 87.9 % (38.0-78.0); Platelet Count 228 K/mcL (140-440); Red Cell Distribution Width 12.6 % (11.5-14.5); WBC 12.9 K/mcL (4.5-11.0)
[2020-06-29 23:21] LABS: ALT/SGPT 15 U/L (<40); AST/SGOT 18 U/L (<40); Albumin 4.1 gm/dL (3.2-5.2); Albumin/Globulin Ratio 1.6 (1.0-2.3); Alkaline Phosphatase 119 U/L (39-117); Bilirubin,Total 0.5 mg/dL (0.1-1.0); Blood Urea Nitrogen 16 mg/dL (8-23); Carbon Dioxide 24 mmol/L (22-30); Chloride 101 mmol/L (96-108); Globulin 2.6 gm/dL (2.2-3.7); Glomerular Filtration Rate 96; Glucose 104 mg/dL (70-105)
[2020-06-30] MEDS ORDERED: HYDROmorphone 0.5 MG/0.5 ML SYRINGE IV PRN (00:55)
[2020-06-30] MEDS ORDERED: ONDANSETRON 4 MG/2 ML VIAL IV PRN (00:55)
[2020-06-30] MEDS ORDERED: NALOXONE HCL 0.4 MG/ML VIAL IV PRN (00:55)
[2020-06-30 01:04] LABS: Appearance,Urine CLEAR (Clear); Bilirubin,Urine Negative (Negative); Color,Urine AMBER; Culture Indicated,Urine No; Glucose,Urine (UA) Negative (Negative); Ketones,Urine 5 mg/dL (Negative); Leukocyte Esterase,Urine Negative /ug (Negative); Mucus,Urine MANY /hpf; Nitrate,Urine Negative (Negative); Protein,Urine 30 mg/dL (Negative); Specific Gravity,Urine 1.033 (1.000-1.035); Urine Blood Negative (Negative); Urine RBC 8 /hpf (0-3); Urine Squamous Epithelial Cell < 1 /hpf (0-4); Urine WBC 1 /hpf (0-4); Urobilinogen,Urine Negative
[2020-06-30] MEDS: 0.9 % SODIUM CHLORIDE 1,000 ML IV SCH ×3 (01:24→20:53)
[2020-06-30] MEDS ORDERED: DIATRIZOATE MEGLU/DIATRIZO SOD 30 ML BOTTLE PO ONE (01:45)
[2020-06-30 01:49] LABS: Basophils # (Auto) 0.04 K/mcL (0.00-0.20); Basophils % (Auto) 0.4 % (0.0-2.0); Eosinophils # (Auto) 0.04 K/mcL (0.00-0.70); Eosinophils % (Auto) 0.4 % (0.0-7.0); Hematocrit 38.2 % (41.0-55.0); Hemoglobin 13.1 g/dL (13.5-16.5); Lymphocytes # (Auto) 0.81 K/mcL (1.50-4.80); Lymphocytes % (Auto) 7.8 % (15.0-49.0); Mean Cell Volume 96.5 fL (80.0-100.0); Mean Corpuscular HGB Conc 34.3 g/dL (31.0-36.0); Mean Platelet Volume 10.1 fL (7.4-10.4); Monocytes # (Auto) 0.76 K/mcL (0.10-0.90); Monocytes % (Auto) 7.3 % (1.0-12.0); Neutrophils % (Auto) 84.1 % (38.0-78.0); Platelet Count 219 K/mcL (140-440); RBC 3.96 M/mcL (4.50-5.90); Red Cell Distribution Width 12.6 % (11.5-14.5); WBC 10.4 K/mcL (4.5-11.0)
[2020-06-30 02:05] LABS: ALT/SGPT 15 U/L (<40); AST/SGOT 17 U/L (<40); Albumin 3.6 gm/dL (3.2-5.2); Albumin/Globulin Ratio 1.3 (1.0-2.3); Alkaline Phosphatase 109 U/L (39-117); Bilirubin,Total 0.5 mg/dL (0.1-1.0); Blood Urea Nitrogen 15 mg/dL (8-23); Calcium 8.7 mg/dL (8.6-10.4); Carbon Dioxide 25 mmol/L (22-30); Chloride 104 mmol/L (96-108); Globulin 2.7 gm/dL (2.2-3.7); Glomerular Filtration Rate 90; Glucose 108 mg/dL (70-105)
--- NOTE | 2020-06-30 04:56 | Cat Scan Report ---
CLINICAL INFORMATION: Abdominal pain COMPARISON: Abdomen and pelvic CT one year prior - 06/26/2019 TECHNIQUE: Following enteric contrast, 80 cc of Isovue-370 were injected intravenously, and 60 seconds later, 0.625 mm helical slices were obtained from the mid heart through the subtrochanteric regions. Following reconstruction, 2.5 mm sagittal, coronal and axial reformatted images were processed and reviewed at bone, lung and soft tissue windows. Five minutes later, 0.625 mm helical slices were obtained from the mid heart through the kidneys and viewed at soft tissue windows.The exam was performed using radiation dose optimization techniques including, but not limited to, automated exposure control, adjustment of the mA and/or kV according to patient size and use of iterative reconstruction technique. 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 The heart is mildly enlarged. Lung bases show mild chronic bronchitis. There are no infiltrates or effusions. Abdominal images show the liver is unremarkable. The gallbladder is surgically absent. Intrahepatic, common hepatic and common bile ducts are markedly dilated with common bile duct measuring 14 mm. Abrupt tapering of the intrapancreatic common bile duct near the ampullary region is unchanged. There is no evidence of mass or stone in this region - presumably the patient has a benign stricture. The Santorini pancreatic duct is also moderately dilated - 4 mm. Pancreatic divisum appreciated. Wirsungs pancreatic duct is normal caliber. A 14 mm cyst in the inferior pancreatic head has been stable for over one year. 8 cm simple cyst mid right kidney is unchanged. A 3 mm nonobstructing stone inferior calyx of the left kidney and a 5 mm nonobstructing stone inferior calyx the right kidney appreciated. Both adrenal glands, spleen and aorta are normal in size, configuration and attenuation without focal lesion. There is no free air or adenopathy. A small amount of free fluid is noted in the deep true pelvis Pelvic images show mild, yet stable prostate enlargement. Seminal vesicles and urinary bladder are normal. The stomach duodenum and proximal jejunum are moderately dilated to the mid jejunum where there is abrupt narrowing due to adhesion or stricture (axial image 74, sagittal image 73 and coronal image 28). The distal small bowel and colon are relatively decompressed. Concentric wall thickening of the terminal ileum is either pathologic or artifact of underdistention. There is edema and moderate dilatation of the mesenteric vasculature particularly in the right lower quadrant. Bone windows show no focal osseous lesions. Degenerative disease in the lumbar spine is unchanged IMPRESSION: 1. Partial mid jejunal obstruction due to adhesions or stricture. The terminal ileum shows moderate concentric thickening of the wall and plicae circulares folds representing either infiltrative pathology such as inflammation or an artifact of underdistention. 2. Moderate dilatation of the intrahepatic, common hepatic and common bile ducts with abrupt tapering of the intrapancreatic common bile duct near the ampullary region. This is unchanged from a CT one year prior and, presumably, represents a benign stricture. Consider GI referral for ERCP. Secondary pancreatic duct is also moderately dilated unchanged - pancreatic divisum noted. Wirsungs duct is normal. 3. 14 mm cyst in the inferior pancreatic head is been stable for over one year. 4. 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 5. 3 mm nonobstructing stone inferior calyx left kidney and likely nonobstructing stone inferior calyx right kidney. 8 cm simple cyst mid right kidney - stable Interpreted and Authenticated by: Nahid Sandoval 06/30/20
--- NOTE | 2020-06-30 11:45 | XRay Report ---
CLINICAL INFORMATION: partial or complete SBO on CT; abd pain COMPARISON: Plain film 12/28/2019. Abdomen and pelvic CT 06/29/2020 TECHNIQUE: Following fireman imaging, water-soluble contrast was administered and serial imaging was obtained one hour. FINDINGS: The stomach, duodenum, jejunum and ileum are normal in contour and caliber with thin uniform plicae circulares folds. Small bowel transit time is approximately 40 minutes. IMPRESSION: Normal exam. Slight delay in small bowel transit time Interpreted and Authenticated by: Nahid Sandoval 06/30/20
--- NOTE | 2020-06-30 15:01 | Brief Operative Note ---
Brief Operative Note Date of procedure: 06/30/20 Pre-op diagnosis: acute and cheonic cholecystitis with cholelithiasis Post-op diagnosis: other (acute and chronic cholecystitis) Procedure: laparoscopic cholecystectomy Grafts/Implants: No Anesthesia: GETA Findings: acute and chronic inflammation of gall bladder with 2 large stones Complications: none Surgeon: Jada Carr Estimated blood loss (cc): 30 Specimens Removed/Pathology: other (gallbladder) Condition: stable Disposition: PACU
[2020-06-30] MEDS ORDERED: METOPROLOL SUCCINATE 25 MG TAB.XL.24H PO PRN (16:43)
[2020-06-30] MEDS ORDERED: KETOROLAC TROMETHAMINE 5 ML DROPS OP PRN ×2 (16:43→16:50)
--- NOTE | 2020-06-30 17:26 | General Surg History&Physical ---
HPI History of Present Illness Patient information: Note initiated : 06/30/20 at 5:26 pm Service Date, if different from initiated Date: [] Patient: Luc Major 80 y/o M admitted on 06/30/20 for abdominal pain. Chief Complaint: [] Chief complaint: chronic abdominal pain and intestinal pseudoobstruction History of present illness: Mr. Major is a 80 year old M admitted for evaluation of recurrent abdominal pain with intermittent bloating and nausea and vomiting. CT suggests a partial intestinal obstruction. He states that he has passed gas, but have not had frequent bowel movements as in the past. He has h ad multiple episodes of partial obstruction in the past but has never needed operative therapy. He has been on Mestinon 60 mg 3 times daily and this has been effective. He has had much more severe crampy abdominal pain over the past few days and is admitted for treatment. Constitutional Constitutional: Present anorexia, fatigue, malaise and weakness EENT Eyes: Absent blurry vision and diplopia Ears: Present decreased hearing Nose, mouth and throat: Present abnormal hearing; Absent hoarseness Cardiovascular Cardiovascular: Present dyspnea on exertion and palpatations; Absent chest pain, chest pain with activity and pedal edema Respiratory Respiratory: Absent cough, wheezing and chest congestion Gastrointestinal Gastrointestinal: Present abdominal pain, belching, change in bowel habits, change in stool character, cramping, fecal incontinence, heartburn, nausea, ten esmus and vomiting; Absent hematochezia and melena Genitourinary Genitourinary: change in urinary stream, urinary frequency and urinary hesitancy Musculoskeletal Musculoskeletal: Present arthralgias, back pain, muscle cramps, muscle weakness, myalgias and neck pain Integumentary Integumentary: Absent changing lesions, new lesions, pruritus, rash and swelling Neurological Neurological: Present abnormal hearing and headache(s); Absent abnormal gait, convulsions and lack of coordination Psychiatric Psychiatric: Present anxiety, behavioral changes and mood swings Endocrine Endocrine: Absent palpitations Hematologic/Lymphatic Hematologic/Lymphatic: Absent easy bleeding, easy bruising and lymphadenopathy PFSH PFSH All Active Problems (Updated 07/01/20 @ 14:22 by Corwin Carr MD) SBO (small bowel obstruction) (Acute) Chronic anticoagulation (Chronic) Hemorrhoid prolapse (Acute) Nummular eczema (Chronic) Cognitive impairment (Chronic) Fatigue (Chronic) Fecal occult blood test positive (Chronic) Anxiety and depression (Chronic) Iron deficiency anemia (Chronic) Depression (Chronic) Daytime sleepiness (Chronic) Osteoarthritis (Chronic) Anxiety (Chronic) Asthma (Chronic) History of small bowel obstruction (Chronic) Gastroparesis (Chronic) History of urinary calculi (Chronic) Hematuria (Chronic) A-fib (Chronic) GERD (gastroesophageal reflux disease) (Chronic) Hyperlipemia (Chronic) Anxiety disorder (Chronic) Anemia (Chronic) B12 deficiency (Chronic) Hypothyroidism (Chronic) DDD (degenerative disc disease) (Chronic) BPH with urinary obstruction (Chronic) BPH (benign prostatic hypertrophy) (Chronic) History of migraine headaches (Chronic) Medical History A-fib (Chronic) Likely paroxysmal. Regular rate and rhythm on exam today. On Eliquis for anticoagulation. States metoprolol is as needed for heart rate greater than 120. Request cardiology records. Abdominal pain (Resolved) Abdominal pain (Resolved) Alternating constipation and diarrhea (Inactive) Patient is concerned about rectal prolapse after diarrhea Will discuss possible rectal prolapse with Dr. Carr Hold MiraLAX and use only as needed. Start Colace 100 mg daily Anemia (Chronic) Anxiety (Chronic) Likely worsening secondary to cognitive impairment. No longer taking lorazepam and Cymbalta. Continue Lexapro 20 mg daily. Anxiety and depression (Chronic) Reported. Taking duloxetine 30 mg 3 times daily and lorazepam 0.25 mg daily. Anxiety disorder (Chronic) Asthma (Chronic) B12 deficiency (Chronic) History of. Likely secondary to bowel resection. Check B12 level. Continue vitamin B12 1000 mcg p.o. daily for now. Bowel obstruction (Resolved ~03/02/19) BPH (benign prostatic hypertrophy) (Chronic) Taking Flomax twice daily. BPH with urinary obstruction (Chronic) Cerumen impaction (Inactive) Patient has been using Debrox a little bit at home. Successful repeat of ear lavage today. Cerumen removed from both ears. Chronic anticoagulation (Chronic) apixaban - afib? Daytime sleepiness (Chronic) Taking trazodone to help him sleep better at night, but continues to complain of daytime somnolence. Will investigate for worsening of anemia or thyroid. Likely needs to adjust sleep hygiene. DDD (degenerative disc disease) (Chronic) Depression (Chronic) Diverticulosis (Resolved) Fatigue (Chronic) Unknown etiology. Likely related to poor absorption versus hypothyroidism. Fecal occult blood test positive (Chronic) Appears to have chronic blood loss. Continue iron infusions We will check CBC and iron studies in [address] Corwin Carr to do colonoscopy next month Gastroparesis (Chronic) GERD (gastroesophageal reflux disease) (Chronic) Headache, post-traumatic, acute (Resolved) Hematuria (Chronic) History of migraine headaches (Chronic) History of small bowel obstruction (Chronic) Multiple episodes subsequent to partial small bowel resection May 2017 due to diverticulitis of the jejunum. Now taking pyridostigmine, per Dr. Carr, to help prevent recurrence. History of urinary calculi (Chronic) Not an active complaint. Follows with Dr. Gar. Hyperlipemia (Chronic) Reported in history. Not on statin. We will check lipid panel. Hypothyroidism (Chronic) On Synthroid 212 mcg daily. At this dose for 1 month now. Check TSH and free T4. Iron deficiency anemia (Chronic) Possibly multiple causes related to history of nephrolithiasis, diverticulitis, and small bowel resection. Hemoccult positive. Anemia has resolved, but iron remains low. Most recently, 1 week ago iron 59, transference saturation 19%. Continue Venofer infusions monthly We will check iron every 3 months. Kidney cyst, acquired (Inactive) Kidney stone (Resolved) Left flank pain (Resolved) Migraine (Resolved) Osteoarthritis (Chronic) Palpitations (Resolved) Partial obstruction of small intestine (Resolved) Partial small bowel obstruction (Resolved) Ptosis (Inactive) Renal cyst (Inactive) SBO (small bowel obstruction) (Resolved) SVT (supraventricular tachycardia) (Resolved) Urinary tract infection (Resolved) Surgical History H/O excision of ganglion cyst (Chronic) Right History of bowel resection (Chronic) x2, One in 2014 and 2016 initially in [place], [place], Dr. Taylor, then Traci Bhatti, [place], [place], Dr. Jameson History of cataract surgery (Chronic) History of cholecystectomy (Chronic ~1991) History of colonoscopy (Chronic) History of endoscopy (Chronic) Two since 2017 History of left shoulder replacement (Chronic ~2006) TANMAY Flores History of photovaporization of prostate (Chronic 09/06/14) Dr. Gar; transurethral History of right shoulder replacement (Chronic ~05/2015) Dr. So History of tonsillectomy (Acute) Family History Grandmother Colon cancer Paternal Ovarian cancer Maternal Grandfather Myocardial infarction Paternal Father Cirrhosis of liver Mother Cirrhosis of liver Migraines Alcoholism Emphysema lung Family/Other Asthma Cancer Alcoholism Arthritis Migraines Social History marital status: occupational status: retired smoking status: Never smoker alcohol intake frequency: holiday/special occasion only substance use type: does not use seatbelt use: always MEDS/ALLERGIES Home Medications and Allergies Home Medications Medication Instructions Recorded Confirmed Type apixaban 5 mg tablet 5 mg PO BID 07/31/18 06/30/20 History cyanocobalamin (vitamin B-12) 500 1,000 mcg PO QDAY 07/31/18 06/30/20 History mcg tablet riboflavin (vitamin B2) 100 mg 400 mg PO QDAY tab 10/29/18 06/30/20 History tablet ascorbate calcium (vitamin C) 500 mg PO DAILY 03/02/19 06/30/20 History dexlansoprazole 60 mg PO DAILY 04/13/19 06/30/20 History pyridostigmine bromide 60 mg tablet 60 mg PO TID #270 tab 07/15/19 06/30/20 Rx iron sucrose 200 mg iron/10 mL 400 mg IV .COMPLEX #20 ml 09/13/19 06/30/20 Rx intravenous solution ketorolac 5 ml OP DAILY PRN 12/02/19 06/30/20 History metoprolol succinate 25 mg PO DAILY PRN 12/02/19 06/30/20 History polyethylene glycol 3350 17 8.5 g PO QDAY g 02/09/20 06/30/20 History gram/dose oral powder levothyroxine 200 mcg tablet 200 mcg PO QDAY #90 tab 02/14/20 06/30/20 Rx trazodone 50 mg tablet 150 mg PO HS #270 tab 04/03/20 06/30/20 Rx tamsulosin 0.4 mg capsule 0.4 mg PO BID #180 cap 05/16/20 06/30/20 Rx escitalopram oxalate 10 mg PO DAILY 06/29/20 06/30/20 History clobetasol See Rx Instructions .ROUTE .COMPLEX 06/30/20 06/30/20 History Allergies Allergy/AdvReac Type Severity Reaction Status Date / Time No Known Drug Allergies Allergy Verified 06/30/20 03:03 Physical Examination Vital Signs Vital signs: Temp Pulse Resp BP Pulse Ox 98.1 F 62 18 114/72 92 06/30/20 16:00 06/30/20 16:00 06/30/20 16:00 06/30/20 16:00 06/30/20 16:00 General physical appearance General physical exam: well developed, well nourished, moderate distress, moderate pain and chronically ill Eyes Eye exam: PERRL and normal ocular movement ENT ENT exam: normal mucosa, decreased hearing and poor longterm Head Head exam IM: Present atraumatic, normal inspection and normocephalic Neck Neck exam: no masses, no bruits, trachea midline, no lymphadenopathy and no venous distension Cardiovascular Cardiovascular exam IM: Present normal rate and rhythm, RRR, +S1 and +S2; Absent gallop, JVD and systolic murmur Respiratory Respiratory exam: normal expansion, normal respiratory effort and clear to auscultation Abdomen Abdomen: Present soft, tender, bowel sounds and distended; Absent organomegaly and masses Integumentary Integumentary: Present no rash, no growths and no abnormal pigmentation Neurologic Neurologic: Present normal coordination and normal sensation Musculoskeletal Musculoskeletal: Present normal gait and normal posture Psychiatric Psychiatric: Present oriented to time, oriented to person, oriented to place, speech is normal, memory intact and other Results Labs Result diagrams: 06/30/20 01:00 06/30/20 01:00 Labs: Abnormal lab results 06/29/20 06/29/20 06/29/20 Range/Units 22:07 22:07 23:11 WBC 12.9 H (4.5-11.0) K/mcL RBC 4.20 L (4.50-5.90) M/mcL Hgb (13.5-16.5) g/dL Hct 40.2 L (41.0-55.0) % Neut % (Auto) 87.9 H (38.0-78.0) % Lymph % (Auto) 5.2 L (15.0-49.0) % Lymph # (Auto) 0.67 L (1.50-4.80) K/mcL Absolute Neutrophils 11.29 H (1.80-8.00) K/mcL Creatinine 0.6 L (0.7-1.2) mg/dL Glucose (70-105) mg/dL Alkaline Phosphatase 119 H (39-117) U/L Urine Protein 30 A (Negative) mg/dL Urine Ketones 5 A (Negative) mg/dL Urine RBC 8 H (0-3) /hpf Urine Mucus Many A (None) /hpf 06/30/20 06/30/20 Range/Units 01:00 01:00 WBC (4.5-11.0) K/mcL RBC 3.96 L (4.50-5.90) M/mcL Hgb 13.1 L (13.5-16.5) g/dL Hct 38.2 L (41.0-55.0) % Neut % (Auto) 84.1 H (38.0-78.0) % Lymph % (Auto) 7.8 L (15.0-49.0) % Lymph # (Auto) 0.81 L (1.50-4.80) K/mcL Absolute Neutrophils 8.78 H (1.80-8.00) K/mcL Creatinine (0.7-1.2) mg/dL Glucose 108 H (70-105) mg/dL Alkaline Phosphatase (39-117) U/L Urine Protein (Negative) mg/dL Urine Ketones (Negative) mg/dL Urine RBC (0-3) /hpf Urine Mucus (None) /hpf Diabetes panel 06/29/20 06/30/20 Range/Units 22:07 01:00 Sodium 139 138 (133-145) mmol/L Potassium 3.5 3.7 (3.3-5.1) mmol/L Chloride 101 104 (96-108) mmol/L Carbon Dioxide 24 25 (22-30) mmol/L BUN 16 15 (8-23) mg/dL Creatinine 0.6 L 0.7 (0.7-1.2) mg/dL Glucose 104 108 H (70-105) mg/dL Calcium 9.0 8.7 (8.6-10.4) mg/dL AST 18 17 (<40) U/L ALT 15 15 (<40) U/L Alkaline Phosphatase 119 H 109 (39-117) U/L Total Protein 6.7 6.3 (5.9-8.4) gm/dL Albumin 4.1 3.6 (3.2-5.2) gm/dL Calcium panel 06/29/20 06/30/20 Range/Units 22:07 01:00 Calcium 9.0 8.7 (8.6-10.4) mg/dL Albumin 4.1 3.6 (3.2-5.2) gm/dL Pituitary panel 06/29/20 06/30/20 Range/Units 22:07 01:00 Sodium 139 138 (133-145) mmol/L Potassium 3.5 3.7 (3.3-5.1) mmol/L Chloride 101 104 (96-108) mmol/L Carbon Dioxide 24 25 (22-30) mmol/L BUN 16 15 (8-23) mg/dL Creatinine 0.6 L 0.7 (0.7-1.2) mg/dL Glucose 104 108 H (70-105) mg/dL Calcium 9.0 8.7 (8.6-10.4) mg/dL Adrenal panel 06/29/20 06/30/20 Range/Units 22:07 01:00 Sodium 139 138 (133-145) mmol/L Potassium 3.5 3.7 (3.3-5.1) mmol/L Chloride 101 104 (96-108) mmol/L Carbon Dioxide 24 25 (22-30) mmol/L BUN 16 15 (8-23) mg/dL Creatinine 0.6 L 0.7 (0.7-1.2) mg/dL Glucose 104 108 H (70-105) mg/dL Calcium 9.0 8.7 (8.6-10.4) mg/dL Total Bilirubin 0.5 0.5 (0.1-1.0) mg/dL AST 18 17 (<40) U/L ALT 15 15 (<40) U/L Alkaline Phosphatase 119 H 109 (39-117) U/L Total Protein 6.7 6.3 (5.9-8.4) gm/dL Albumin 4.1 3.6 (3.2-5.2) gm/dL All other labs normal. A/P Assessment and plan (1) SBO (small bowel obstruction): Status: Acute (2) Gastroparesis: Status: Chronic (3) GERD (gastroesophageal reflux disease): Status: Chronic Qualifiers: Esophagitis presence: esophagitis presence not specified Qualified Code(s): K21.9 - Gastro-esophageal reflux disease without esophagitis (4) History of small bowel obstruction: Status: Chronic Comment: Multiple episodes subsequent to partial small bowel resection May 2017 due to diverticulitis of the jejunum. Now taking pyridostigmine, per Dr. Carr, to help prevent recurrence. (5) Hemorrhoid prolapse: Status: Acute Narrative A/P Narrative: NPO except for liquids Schedule for small bowel follow-through in the morning. And Reglan if needed. Continue Mestinon Time Spent With Patient Time: Total time spent is greater than 50% in coordination of care (as documented) at patient's floor/unit and/or counseling patient:
[2020-06-30] MEDS: APIXABAN 5 MG TABLET PO SCH (20:53)
[2020-06-30] MEDS: PYRIDOSTIGMINE 60 MG TABLET PO SCH (20:53)
[2020-06-30] MEDS: TAMSULOSIN 0.4 MG CAPSULE PO SCH (20:53)
[2020-06-30] MEDS ORDERED: traZODone HCL 50 MG TABLET PO SCH (21:00)
[2020-07-01] MEDS ORDERED: PANTOPRAZOLE 40 MG TABLET PO SCH (07:30)
[2020-07-01] MEDS ORDERED: LEVOTHYROXINE 100 MCG TABLET PO SCH (07:30)
[2020-07-01] MEDS: 0.9 % SODIUM CHLORIDE 1,000 ML IV SCH (08:16)
[2020-07-01] MEDS: TAMSULOSIN 0.4 MG CAPSULE PO SCH (08:17)
[2020-07-01] MEDS: APIXABAN 5 MG TABLET PO SCH (08:17)
[2020-07-01] MEDS: PYRIDOSTIGMINE 60 MG TABLET PO SCH ×2 (08:18→14:26)
[2020-07-01] MEDS ORDERED: ESCITALOPRAM 10 MG TABLET PO SCH (09:00)
--- NOTE | 2020-07-01 11:37 | XRay Report ---
CLINICAL INFORMATION: FOR F/U OF [facility] COMPARISON: 06/30/2020. FINDINGS: Stool gas pattern is now unremarkable. Small amount of retained enteric contrast seen within the colon. No free air, soft tissue mass or pathologic calcification. IMPRESSION: Negative abdomen Interpreted and Authenticated by: Nahid Sandoval 07/01/20
--- NOTE | 2020-07-01 14:29 | Discharge Summary ---
Discharge Provider Provider Patient information: Note initiated : 07/01/20 at 2:24 pm Service Date, if different from initiated Date: [] Patient: Luc Major 80 y/o M admitted on 06/30/20 for abdominal pain. Chief Complaint: [] Date of admission: 06/30/20 01:44 Discharge date: 07/01/20 Primary care physician: Nahid Ahuja DO Admitting clinician: Jada Carr Attending physician on admission: Jada Carr Consults: 06/30/20 Consult to Physician [CONS] Stat Comment: Consulting Provider: Jada Carr Reason For Exam: Physician to Consult Attending physician on discharge: Jada Carr Discharging clinician: Jennifer Carr COURSE Hospital Course Hospital course: patient admitted with partial small bowel obstruction. He underwent small bowel follow-through which showed a transit of 40 minutes. He has had multiple bowel movements since that time and is now asymptomatic. His abdomen is soft and flat and he has no distention. Patient is stable for discharge home Discharge diagnosis: partial small bowel obstruction Secondary discharge diagnosis: chronic intestinal pseudoobstruction. Gastroparesis. Chronic atrial fibrillation. Gastroesophageal reflux disease Reason for admission: partial intestinal obstruction Procedures: none Pertinent studies/significant findings: small bowel follow-through Time Spent with Patient Time attestation: Total time spent providing and/or coordinating discharge services: Physical Examination Vital Signs Vital signs: Temp Pulse Resp BP Pulse Ox 98.5 F 58 L 16 111/64 95 07/01/20 12:00 07/01/20 04:48 07/01/20 12:00 07/01/20 12:00 07/01/20 12:00 General physical appearance General physical exam: well developed, well nourished, moderate distress, moderate pain and chronically ill Eyes Eye exam: PERRL and normal ocular movement ENT ENT exam: normal mucosa, decreased hearing and poor prison Head Head exam IM: Present atraumatic, normal inspection and normocephalic Neck Neck exam: no masses, no bruits, trachea midline, no lymphadenopathy and no venous distension Cardiovascular Cardiovascular exam IM: Present normal rate and rhythm, RRR, +S1 and +S2; Absent gallop, JVD and systolic murmur Respiratory Respiratory exam: normal expansion, normal respiratory effort and clear to auscultation Abdomen Abdomen: Present soft, tender, bowel sounds and distended; Absent organomegaly and masses Integumentary Integumentary: Present no rash, no growths and no abnormal pigmentation Neurologic Neurologic: Present normal coordination and normal sensation Musculoskeletal Musculoskeletal: Present normal gait and normal posture Psychiatric Psychiatric: Present oriented to time, oriented to person, oriented to place, speech is normal, memory intact and other Discharge Plan Patient/Caregiver Discharge Instructions Activity: increase activity as tolerated Diet: Regular Diet Prescriptions: Continued Venofer 200 mg iron/10 mL solution 400 mg IV .COMPLEX Qty: 20 RF: 5 levothyroxine 200 mcg tablet 200 mcg PO QDAY Qty: 90 RF: 3 trazodone 50 mg tablet 150 mg PO HS Qty: 270 RF: 1 tamsulosin 0.4 mg capsule 0.4 mg PO BID Qty: 180 RF: 5 pyridostigmine bromide 60 mg tablet 60 mg PO TID Qty: 270 RF: 5 ascorbate calcium (vitamin C) 500 MG tablet 500 mg PO DAILY RF: 0 dexlansoprazole 60 MG capsule,biphase delayed releas 60 mg PO DAILY RF: 0 ketorolac 5 ML drops 5 ml OP DAILY PRN (Reason: Dry Eyes) RF: 0 metoprolol succinate 25 MG tablet extended release 24 hr 25 mg PO DAILY PRN (Reason: Tachyarrhythmias) RF: 0 escitalopram oxalate 10 mg tablet 10 mg PO DAILY RF: 0 clobetasol 0.05 % cream See Rx Instructions .ROUTE .COMPLEX RF: 0 Eliquis 5 mg tablet 5 mg PO BID RF: 0 cyanocobalamin (vitamin B-12) [Vitamin B-12] 500 mcg tablet 1,000 mcg PO QDAY RF: 0 riboflavin (vitamin B2) 100 mg tablet 400 mg PO QDAY RF: 0 polyethylene glycol 3350 [Miralax] 17 gram/dose powder 8.5 g PO QDAY RF: 0 Follow Up Plan Follow up with: Jada Carr MD [Physician] - Patient Disposition: Home, Self-Care Prognosis: Good Rehab Potential: Good I certify that the patient requires SNF services: No Overall status at discharge: patient is progressing back to baseline Discharge Orders: Discharge Order (Routine); Ordered 07/01/20 Ordered By: Jada Carr Pending Pending Pending: Resuscitation Status Limited Code Diet Full Liquid Diet Start FriJun 30 164 Apixaban (Eliquis) 5 mg PO BID [facility] Last Admin: 07/01/20 08:17 Dose: 5 mg Documented by: Admin: 06/30/20 20:53 Dose: 5 mg Documented by: RASHAUN Escitalopram Oxalate (Lexapro) 10 mg PO DAILY [facility] Last Admin: 07/01/20 08:17 Dose: 10 mg Documented by: KRISTI Hydromorphone HCl (Dilaudid) 0.5 mg IV Q2HP PRN; Protocol PRN Reason: Per Pain Protocol Last Admin: 06/30/20 02:45 Dose: 0.5 mg Documented by: RASHAUN Sodium Chloride (Sodium Chloride 0.9%) 1,000 mls @ 100 mls/hr IV .Q10H [facility] Last Admin: 07/01/20 08:16 Dose: 100 mls/hr Documented by: Infusion: 07/01/20 06:53 Dose: 100 mls/hr Documented by: Admin: 06/30/20 20:53 Dose: 100 mls/hr Documented by: Infusion: 06/30/20 20:53 Dose: 100 mls/hr Documented by: Admin: 06/30/20 10:58 Dose: 100 mls/hr Documented by: Infusion: 06/30/20 10:58 Dose: 100 mls/hr Documented by: [email or web address] Infusion: 06/30/20 01:57 Dose: 100 mls/hr Documented by: Admin: 06/30/20 01:24 Dose: 100 mls/hr Documented by: MESFIN Levothyroxine Sodium (Synthroid) 200 mcg PO ACB [facility] Last Admin: 07/01/20 08:17 Dose: 200 mcg Documented by: KRISTI Pantoprazole Sodium (Protonix) 40 mg PO ACB [facility] Last Admin: 07/01/20 08:17 Dose: 40 mg Documented by: KRISTI Pyridostigmine [place] (Mestinon) 60 mg PO TID [facility] Last Admin: 07/01/20 08:18 Dose: 60 mg Documented by: Admin: 06/30/20 20:53 Dose: 60 mg Documented by: RASHAUN Tamsulosin HCl (Flomax) 0.4 mg PO BID [facility] Last Admin: 07/01/20 08:17 Dose: 0.4 mg Documented by: Admin: 06/30/20 20:53 Dose: 0.4 mg Documented by: RASHAUN Trazodone HCl (Desyrel) 150 mg PO HS [facility] Last Admin: 06/30/20 20:52 Dose: 150 mg Documented by: RASHAUN Shift Summary 07/01/20 04:52 Shift Summary by Elba Cano 80 Y/O M admitted for SBO from [facility] and is A&O. HX: anxiety, depression, asthma, afib, gerd, SVT, hypothyroid, BPH, migraine, hematuria, Bowel obstructions, Gastroparesis, Diverticulitis, multi bowel resn, prostate and LTSA. IV is is RFA with NS at 100. Dr Carr to see this AM for possible dc home today. VSS on 2L nc at 94-96. He did have low BP at MN 76/45 and was asymptomatic but was improve at 0400 =100/59. patient states that he has had very low BPs in past hospitalizations . Ambulates with SBA d/t tubes. Patient wears pull-up d/t incont bladder (dribbles). Will update at bedside. Initialized on 07/01/20 04:52 - END OF NOTE
== END 2020-07-01 15:32 | disposition home or self-care (01) ==
LOC: MEDSUR 21:59 → ED 21:59 → MEDSUR 06-30 01:45
PROVIDERS: ADMIT Family Medicine Adult Medicine; ATTEND Family Medicine Adult Medicine

== ENCOUNTER 2020-09-06 23:10 | Observation (INO) ==
[2020-09-06] MEDS ORDERED: IOPAMIDOL 100 ML BOTTLE IV ONE (23:11)
[2020-09-06] MEDS ORDERED: ONDANSETRON 4 MG/2 ML VIAL IV ONE (23:19)
--- NOTE | 2020-09-06 23:22 | Emergency Department Note ---
Abdominal Pain HPI General Chief Complaint: Abdominal Pain Stated Complaint: abdominal pain Time Seen by Provider: 09/07/20 02:30 Source: EMS Mode of arrival: EMS Limitations: no limitations History of Present Illness HPI Narrative: Narrative: Presents from T2 for evaluation of abdominal pain with vomiting. Patient has a past medical history of partial small bowel obstruction most recently in June of this year. This was treated nonoperatively. The patient reports that he normally has loose watery stools and today had a total of 6. He denies any rectal bleeding or melena. He states tonight after eating dinner he developed diffuse intense abdominal pain which has been persistent since that time. He had one episode of a large amount of bilious vomit. He denies any fevers or chills. He states the pain is constant. He denies any exacerbating or alleviating factors. He denies any dysuria hematuria frequency urgency. No chest pain or shortness of breath. Related Data Home Medications Medication Instructions Recorded Confirmed apixaban 5 mg tablet 5 mg PO BID 07/31/18 07/17/20 cyanocobalamin (vitamin B-12) 500 1,000 mcg PO QDAY 07/31/18 07/17/20 mcg tablet riboflavin (vitamin B2) 100 mg 400 mg PO QDAY tab 10/29/18 07/17/20 tablet ascorbate calcium (vitamin C) 500 mg PO DAILY 03/02/19 07/17/20 dexlansoprazole 60 mg PO DAILY 04/13/19 07/17/20 ketorolac 5 ml OP DAILY PRN 12/02/19 07/17/20 metoprolol succinate 25 mg PO DAILY PRN 12/02/19 07/17/20 polyethylene glycol 3350 17 8.5 g PO QDAY g 02/09/20 07/17/20 gram/dose oral powder Previous Rx's Medication Instructions Recorded iron sucrose 200 mg iron/10 mL 400 mg IV .COMPLEX #20 ml 09/13/19 intravenous solution levothyroxine 200 mcg tablet 200 mcg PO QDAY #90 tab 02/14/20 tamsulosin 0.4 mg capsule 0.4 mg PO BID #180 cap 05/16/20 cholecalciferol (vitamin D3) 50 2,000 unit PO QDAY #90 cap 07/13/20 mcg (2,000 unit) capsule cholecalciferol (vitamin D3) 50 2,000 unit PO QDAY #14 cap 07/20/20 mcg (2,000 unit) capsule pyridostigmine bromide 60 mg tablet 60 mg PO TID #270 tab 08/07/20 clobetasol 0.05 % topical cream 1 applic TOPICAL BID #60 g 08/21/20 escitalopram oxalate 10 mg tablet 10 mg PO DAILY #90 tab 08/21/20 trazodone 50 mg tablet 150 mg PO HS #270 tab 08/21/20 Allergies Allergy/AdvReac Type Severity Reaction Status Date / Time No Known Drug Allergies Allergy Verified 07/17/20 11:22 Review of Systems ROS ROS Narrative: Narrative: All systems ED: reviewed and negative except as stated. PFSH Narrative Patient History Narrative: Narrative: Medical/Surgical/Family History All Active Problems (Updated 09/07/20 @ 03:50 by King Browne MD) Abdominal pain (Acute) SBO (small bowel obstruction) (Acute) Chronic anticoagulation (Chronic) Hemorrhoid prolapse (Acute) Nummular eczema (Chronic) Cognitive impairment (Chronic) Fatigue (Chronic) Fecal occult blood test positive (Chronic) Anxiety and depression (Chronic) Iron deficiency anemia (Chronic) Depression (Chronic) Daytime sleepiness (Chronic) Osteoarthritis (Chronic) Anxiety (Chronic) Asthma (Chronic) History of small bowel obstruction (Chronic) Gastroparesis (Chronic) History of urinary calculi (Chronic) Hematuria (Chronic) A-fib (Chronic) GERD (gastroesophageal reflux disease) (Chronic) Hyperlipemia (Chronic) Anxiety disorder (Chronic) Anemia (Chronic) B12 deficiency (Chronic) Hypothyroidism (Chronic) DDD (degenerative disc disease) (Chronic) BPH with urinary obstruction (Chronic) BPH (benign prostatic hypertrophy) (Chronic) History of migraine headaches (Chronic) Medical History (Updated 09/07/20 @ 03:50 by King Browne MD) A-fib Likely paroxysmal. Regular rate and rhythm on exam today. On Eliquis for anticoagulation. States metoprolol is as needed for heart rate greater than 120. Request cardiology records. Abdominal pain Abdominal pain Alternating constipation and diarrhea Patient is concerned about rectal prolapse after diarrhea Will discuss possible rectal prolapse with Dr. Carr Hold MiraLAX and use only as needed. Start Colace 100 mg daily Anemia Anxiety Likely worsening secondary to cognitive impairment. No longer taking lorazepam and Cymbalta. Continue Lexapro 20 mg daily. Anxiety and depression Reported. Taking duloxetine 30 mg 3 times daily and lorazepam 0.25 mg daily. Anxiety disorder Asthma B12 deficiency History of. Likely secondary to bowel resection. Check B12 level. Continue vitamin B12 1000 mcg p.o. daily for now. Bowel obstruction (~03/02/19) BPH (benign prostatic hypertrophy) Taking Flomax twice daily. BPH with urinary obstruction Cerumen impaction Patient has been using Debrox a little bit at home. Successful repeat of ear lavage today. Cerumen removed from both ears. Chronic anticoagulation apixaban - afib? Daytime sleepiness Taking trazodone to help him sleep better at night, but continues to complain of daytime somnolence. Will investigate for worsening of anemia or thyroid. Likely needs to adjust sleep hygiene. DDD (degenerative disc disease) Depression Diverticulosis Fatigue Unknown etiology. Likely related to poor absorption status post partial sm all bowel resection. We will check for other vitamin deficiencies Fecal occult blood test positive Appears to have chronic blood loss. Continue iron infusions We will check CBC and iron studies in [address] Corwin Carr to do colonoscopy next month Gastroparesis GERD (gastroesophageal reflux disease) Headache, post-traumatic, acute Hematuria History of migraine headaches History of small bowel obstruction Multiple episodes subsequent to partial small bowel resection May 2017 due to diverticulitis of the jejunum. Now taking pyridostigmine, per Dr. Carr, to help prevent recurrence. History of urinary calculi Not an active complaint. Follows with Dr. Gar. Hyperlipemia Reported in history. Not on statin. We will check lipid panel. Hypothyroidism On Synthroid 212 mcg daily. At this dose for 1 month now. Check TSH and free T4. Iron deficiency anemia Possibly multiple causes related to history of nephrolithiasis, diverticulitis, and small bowel resection. Continue Venofer infusions monthly We will check iron studies today Kidney cyst, acquired Kidney stone Left flank pain Migraine Osteoarthritis Palpitations Partial obstruction of small intestine Partial small bowel obstruction Ptosis Renal cyst SBO (small bowel obstruction) SVT (supraventricular tachycardia) Urinary tract infection Surgical History H/O excision of ganglion cyst Right History of bowel resection x2, One in 2014 and 2016 initially in [place], [place], Dr. Taylor, then Traci Bhatti, [place], [place], Dr. Jameson History of cataract surgery History of cholecystectomy (~1991) History of colonoscopy History of endoscopy Two since 2017 History of left shoulder replacement (~2006) TANMAY Flores History of photovaporization of prostate (09/06/14) Dr. Gar; transurethral History of right shoulder replacement (~05/2015) Dr. So History of tonsillectomy Family History Grandmother Colon cancer Paternal Ovarian cancer Maternal Grandfather Myocardial infarction Paternal Father Cirrhosis of liver Mother Cirrhosis of liver Migraines Alcoholism Emphysema lung Family/Other Asthma Cancer Alcoholism Arthritis Migraines Social History Smoking Status: Never smoker Alcohol Intake Frequency: holiday/special occasion only Substance Use: does not use Exam Narrative Narrative: Narrative: General Limitations: no limitations General appearance: Present alert and in no apparent distress Head Head: Present atraumatic, normocephalic and normal inspection Eye Eye: Present normal appearance and EOMI; Absent conjunctival injection ENT ENT: Present normal exam and mucous membranes moist Neck Neck: Present normal inspection and trachea midline Respiratory Respiratory: Present normal lung sounds bilaterally; Absent respiratory distress Cardiovascular Cardiovascular: Present regular rate, normal rhythm and normal heart sounds Adbominal Abdominal: Present soft, tenderness (Moderate diffuse tenderness to palpation.) and hyperactive bowel sounds; Absent distention, guarding and rebound Extremities Extremities: Present normal inspection; Absent tenderness Back Back: Present normal inspection; Absent tenderness Neurological Neurological: Present alert, oriented X3 and CN II-XII intact; Absent motor sensory deficit Psychiatric Psychiatric: Present normal affect and normal mood Skin Skin: Present warm (WNL) and dry; Absent rash Course Vital Signs Vital signs: Vital Signs Temperature 98.5 F 09/06/20 23:11 Pulse Rate 58 L 09/06/20 23:11 Respiratory Rate 18 09/06/20 23:11 Blood Pressure 147/85 09/06/20 23:11 Pulse Oximetry (%) 95 09/06/20 23:11 Temperature 98.5 F 09/06/20 23:11 Pulse Rate 53 L 09/07/20 02:22 Respiratory Rate 18 09/06/20 23:11 Blood Pressure 115/64 09/07/20 02:21 Pulse Oximetry (%) 91 09/07/20 02:22 [facility] Narrative Medical decision making narrative: Narrative: Patient presents for evaluation of abdominal pain with a history of partial small bowel obstruction and chronic atrial fibrillation currently on Eliquis. The patient's initial exam shows a nondistended abdomen with no peritoneal signs. The patient does have hyperacti ve bowel sounds and this is consistent with potential bowel obstruction. The patient did have labs performed which were unremarkable. The patient does not have leukocytosis or anemia. There is no evidence of acute kidney injury. The lactic acid level is less than 0.2. The patient CT scan was reviewed thoroughly with the on-call surgeon, Dr. Fuentes. There is question about potential gas in the gastric intestinal tissue as well as potential SMV compromise. Clinically the patient does not have pain out of proportion to exam and has active bowel sounds. Again the lactic acid level is less than 0.2 and the patient is on an anticoagulant. I do not believe the patient has acute arterial insufficiency to the intestinal tract. After discussion with Dr. Fuentes we will not place an NG tube at this time. Also will hold any empiric antibiotics. We will admit the patient to his service for further evaluation and management. Lab Data Lab results reviewed: Yes I reviewed the patient's lab results. Result diagrams: 09/06/20 23:36 09/06/20 23:36 Labs: Lab Results 09/06/20 09/06/20 09/06/20 Range/Units 23:18 23:36 23:36 WBC 9.7 (4.5-11.0) K/mcL RBC 3.94 L (4.50-5.90) M/mcL Hgb 13.5 (13.5-16.5) g/dL Hct 38.3 L (41.0-55.0) % MCV 97.2 (80.0-100.0) fL MCH 34.3 H (26.0-34.0) pg MCHC 35.2 (31.0-36.0) g/dL RDW 11.9 (11.5-14.5) % Plt Count 221 (140-440) K/mcL MPV 10.8 H (7.4-10.4) fL Neut % (Auto) 84.0 H (38.0-78.0) % Lymph % (Auto) 6.8 L (15.0-49.0) % Floyd % (Auto) 7.7 (1.0-12.0) % Eos % (Auto) 1.0 (0.0-7.0) % Baso % (Auto) 0.5 (0.0-2.0) % Lymph # (Auto) 0.66 L (1.50-4.80) K/mcL Floyd # (Auto) 0.74 (0.10-0.90) K/mcL Eos # (Auto) 0.10 (0.00-0.70) K/mcL Baso # (Auto) 0.05 (0.00-0.20) K/mcL Absolute Neutrophils 8.10 H (1.80-8.00) K/mcL VBG Lactic Acid < 0.2 L (0.5-2.0) mmol/L Sodium 139 (133-145) mmol/L Potassium 3.3 (3.3-5.1) mmol/L Chloride 103 (96-108) mmol/L Carbon Dioxide 27 (22-30) mmol/L Anion Gap 9.0 (8.0-16.0) BUN 10 (8-23) mg/dL Creatinine 0.7 (0.7-1.2) mg/dL GFR Calculation 90 Glucose 103 (70-105) mg/dL Calcium 8.7 (8.6-10.4) mg/dL Total Bilirubin 0.4 (0.1-1.0) mg/dL AST 16 (<40) U/L ALT 11 (<40) U/L Alkaline Phosphatase 117 (39-117) U/L Total Protein 6.5 (5.9-8.4) gm/dL Albumin 3.9 (3.2-5.2) gm/dL Globulin 2.6 (2.2-3.7) gm/dL Albumin/Globulin Ratio 1.5 (1.0-2.3) Lipase 18 (7-60) U/L Radiology Data Radiology results reviewed: Yes I reviewed the patient's radiology results. EKG Data EKG #1: EKG attestation: Yes I reviewed and interpreted this EKG. and Yes There are no EKG findings of acute coronary syndrome EKG results narrative: Normal sinus rhythm with a rate of 60, normal ST segment, normal QRS, no ectopy Rhythm Strip Data Rhythm Strip Rate: 55 Interpretation: Normal sinus rhythm Discharge Plan Patient/Caregiver Discharge Instructions Pt seen by [employer] ATTENDANT/PA only: No Clinical Impression: Abdominal pain Patient Disposition: Xfer As Inpt ([facility]) Follow up with: Nahid Ahuja DO [Primary Care Provider] - Prescriptions: No Action Venofer 200 mg iron/10 mL solution 400 mg IV .COMPLEX Qty: 20 RF: 5 levothyroxine 200 mcg tablet 200 mcg PO QDAY Qty: 90 RF: 3 tamsulosin 0.4 mg capsule 0.4 mg PO BID Qty: 180 RF: 5 cholecalciferol (vitamin D3) 50 mcg (2,000 unit) capsule 2,000 unit PO QDAY Qty: 90 RF: 0 cholecalciferol (vitamin D3) 50 mcg (2,000 unit) capsule 2,000 unit PO QDAY Qty: 14 RF: 0 pyridostigmine bromide 60 mg tablet 60 mg PO TID Qty: 270 RF: 5 trazodone 50 mg tablet 150 mg PO HS Qty: 270 RF: 1 clobetasol 0.05 % cream 1 applic topical BID Qty: 60 RF: 0 escitalopram oxalate 10 mg tablet 10 mg PO DAILY Qty: 90 RF: 3 ascorbate calcium (vitamin C) 500 MG tablet 500 mg PO DAILY RF: 0 dexlansoprazole 60 MG capsule,biphase delayed releas 60 mg PO DAILY RF: 0 ketorolac 5 ML drops 5 ml OP DAILY PRN (Reason: Dry Eyes) RF: 0 metoprolol succinate 25 MG tablet extended release 24 hr 25 mg PO DAILY PRN (Reason: Tachyarrhythmias) RF: 0 Eliquis 5 mg tablet 5 mg PO BID RF: 0 cyanocobalamin (vitamin B-12) [Vitamin B-12] 500 mcg tablet 1,000 mcg PO QDAY RF: 0 riboflavin (vitamin B2) 100 mg tablet 400 mg PO QDAY RF: 0 polyethylene glycol 3350 [Miralax] 17 gram/dose powder 8.5 g PO QDAY RF: 0
[2020-09-07] MEDS ORDERED: morphine 4 MG/ML VIAL IV ONE (00:33)
[2020-09-07 00:35] LABS: Basophils # (Auto) 0.05 K/mcL (0.00-0.20); Basophils % (Auto) 0.5 % (0.0-2.0); Hematocrit 38.3 % (41.0-55.0); Hemoglobin 13.5 g/dL (13.5-16.5); Lymphocytes # (Auto) 0.66 K/mcL (1.50-4.80); Lymphocytes % (Auto) 6.8 % (15.0-49.0); Mean Cell Volume 97.2 fL (80.0-100.0); Mean Corpuscular HGB Conc 35.2 g/dL (31.0-36.0); Mean Platelet Volume 10.8 fL (7.4-10.4); Monocytes # (Auto) 0.74 K/mcL (0.10-0.90); Monocytes % (Auto) 7.7 % (1.0-12.0); Platelet Count 221 K/mcL (140-440); RBC 3.94 M/mcL (4.50-5.90); Red Cell Distribution Width 11.9 % (11.5-14.5); WBC 9.7 K/mcL (4.5-11.0)
[2020-09-07 00:55] LABS: ALT/SGPT 11 U/L (<40); AST/SGOT 16 U/L (<40); Albumin 3.9 gm/dL (3.2-5.2); Albumin/Globulin Ratio 1.5 (1.0-2.3); Alkaline Phosphatase 117 U/L (39-117); Bilirubin,Total 0.4 mg/dL (0.1-1.0); Blood Urea Nitrogen 10 mg/dL (8-23); Calcium 8.7 mg/dL (8.6-10.4); Carbon Dioxide 27 mmol/L (22-30); Chloride 103 mmol/L (96-108); Globulin 2.6 gm/dL (2.2-3.7); Glomerular Filtration Rate 90; Glucose 103 mg/dL (70-105)
[2020-09-07] MEDS ORDERED: fentaNYL 100 MCG/2 ML VIAL IV ONE (01:43)
[2020-09-07] MEDS ORDERED: ONDANSETRON 4 MG/2 ML VIAL IV ONE (01:44)
[2020-09-07] MEDS ORDERED: ONDANSETRON 4 MG/2 ML VIAL IV PRN (03:51)
[2020-09-07] MEDS ORDERED: HYDROmorphone 0.5 MG/0.5 ML SYRINGE IV PRN (03:51)
[2020-09-07] MEDS ORDERED: 0.45 % SODIUM CHLORIDE 1,000 ML IV SCH (04:00)
[2020-09-07] MEDS: 0.9 % SODIUM CHLORIDE 1,000 ML IV SCH (04:58)
--- NOTE | 2020-09-07 05:23 | Cat Scan Report ---
CLINICAL INFORMATION: Abdominal pain and vomiting. History of small bowel obstruction COMPARISON: Abdomen and pelvic CT 06/29/2020 TECHNIQUE: Following enteric contrast, 80 cc of Isovue-[id number] were injected intravenously, and 60 seconds later, 0.625 mm helical slices were obtained from the mid heart through the subtrochanteric regions. Following reconstruction, 2.5 mm sagittal, coronal and axial reformatted images were processed and reviewed at bone, lung and soft tissue windows. Five minutes later, 0.625 mm helical slices were obtained from the mid heart through the kidneys and viewed at soft tissue windows.The exam was performed using radiation dose optimization techniques including, but not limited to, automated exposure control, adjustment of the mA and/or kV according to patient size and use of iterative reconstruction technique. 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 Heart is mildly enlarged. Lung bases show mild chronic bronchitis. No infiltrates or effusions. Abdominal images show the liver is unremarkable. The gallbladder is surgically absent. Intrahepatic, common hepatic and common bile ducts are markedly dilated with common bile duct measuring 15 mm - slightly increased. A small amount of gas is seen within the peripheral nondependent left hepatic ducts. Abrupt tapering of the intrapancreatic common bile duct near the ampullary region is unchanged. There is no evidence of mass or stone in this region - presumably the patient has papillary stenosis. The Santorini pancreatic duct is also moderately dilated (4 mm) but unchanged. Pancreatic divisum appreciated. Wirsungs pancreatic duct is normal caliber. A 14 mm cyst in the inferior pancreatic head is stable. Thrombus is noted in the inferior mesenteric and splenic veins. This was also seen in retrospect on the prior exam and is unchanged. The portal vein and the remaining portal vein tributaries are unremarkable. 8 cm simple cyst mid right kidney is unchanged. A 3 mm nonobstructing stone inferior calyx of the left kidney and a 7 mm nonobstructing stone inferior calyx the right kidney are again noted. Both adrenal glands, spleen and aorta are normal in size, configuration and attenuation without focal lesion. There is no free air or adenopathy. A small amount of free fluid is noted in the deep true pelvis has decreased from prior exam. Pelvic images show mild, yet stable prostate enlargement. Seminal vesicles and urinary bladder are normal. Today's examination shows the stomach, small large bowel to be symmetrically dilated bowel mild ileus noted small bowel obstruction pattern seen on today's exam. Sigmoid diverticulosis appreciated but no definite evidence for diverticulitis. The appendix is located in the medial pericecal region appears unremarkable. Mild mesenteric edema is seen centrally. Bone windows show no focal osseous lesions. Degenerative disease in the lumbar spine is unchanged IMPRESSION: 1. 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 Moderate dilatation of the intrahepatic, common hepatic and common bile ducts with abrupt tapering of the intrapancreatic common bile duct near the ampullary region.This is unchanged from a CT over one year prior and, presumably, this represents papillary stenosis. A small amount of gas in the nondependent left intrahepatic ducts may represent instrumentation for ERCP. Santorini pancreatic duct is also moderately dilated unchanged - pancreatic divisum noted. Wirsungs duct is normal. Suggest: Abdominal MRI/MRCP 3. 14 mm cyst in the inferior pancreatic head - stable for over one year. 4. 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 5. 3 mm nonobstructing stone inferior calyx left kidney and likely nonobstructing stone inferior calyx right kidney. 8 cm simple cyst mid right kidney - stable 6. Mild ileus. No evidence recurrent small bowel obstruction Interpreted and Authenticated by: Nahid Sandoval 09/07/20
--- NOTE | 2020-09-07 13:18 | General Surg History&Physical ---
HPI History of Present Illness Patient information: Note initiated : 09/07/20 at 1:07 pm Service Date, if different from initiated Date: [] Patient: Luc Major 80 y/o M admitted on 09/07/20 for abdominal pain. Chief Complaint: [] Chief complaint: Patient small bowel obstruction History of present illness: Mr. Major is a 80 year old M admitted earlier this morning with complaints of chronic recurrent severe abdominal pain with abdominal distention. He had bloating with nausea and vomiting. The pain became increasingly severe and he was seen in the emergency room for evaluation was felt to be compatible with partial obstruction. He states that over the past couple of months that he has had increased liquid stools. He relates this to Mestinon which he was taken 3 times a day. He had cut back on this to once a day. Since last evaluation he has been doing well except for the diarrheal stools until the onset of symptoms this morning. Since admission patient states that he feels much better. He is passing gas and had some liquid stools. His abdominal distention has improved. He no longer has nausea. Constitutional Constitutional: Present fatigue, lethargy, malaise and weakness EENT Ears: Present decreased hearing Nose, mouth and throat: Absent dysphagia, hoarseness and sore throat Cardiovascular Cardiovascular: Present dyspnea on exertion; Absent paroxysmal nocturnal dyspnea Respiratory Respiratory: Absent cough, wheezing and chest congestion Gastrointestinal Gastrointestinal: Present abdominal pain, change in bowel habits, diarrhea, early satiety, fecal incontinence, heartburn, loose stools, nausea and vomiting Genitourinary Genitourinary: change in urinary stream and urinary frequency Musculoskeletal Musculoskeletal: Present arthralgias, back pain, muscle cramps and muscle weakness Integumentary Integumentary: Absent changing lesions, photosensitivity, pruritus, rash and skin pain Neurological Neurological: Present abnormal hearing and headache(s); Absent syncope and vertigo Psychiatric Psychiatric: Present anxiety Endocrine Endocrine: Absent excessive sweating, heat intolerance and palpitations Hematologic/Lymphatic Hematologic/Lymphatic: Absent easy bleeding, easy bruising and lymphadenopathy Allergic/Immunologic Allergic/Immunologic: Absent tongue swelling, throat swelling, itchy eyes, uticaria, wheezing and lip swelling PFSH PFSH All Active Problems (Updated 09/07/20 @ 13:17 by Corwin Carr MD) Abdominal pain (Acute) SBO (small bowel obstruction) (Acute) Chronic anticoagulation (Chronic) Hemorrhoid prolapse (Acute) Nummular eczema (Chronic) Cognitive impairment (Chronic) Fatigue (Chronic) Fecal occult blood test positive (Chronic) Anxiety and depression (Chronic) Iron deficiency anemia (Chronic) Depression (Chronic) Daytime sleepiness (Chronic) Osteoarthritis (Chronic) Anxiety (Chronic) Asthma (Chronic) History of small bowel obstruction (Chronic) Gastroparesis (Chronic) History of urinary calculi (Chronic) Hematuria (Chronic) A-fib (Chronic) GERD (gastroesophageal reflux disease) (Chronic) Hyperlipemia (Chronic) Anxiety disorder (Chronic) Anemia (Chronic) B12 deficiency (Chronic) Hypothyroidism (Chronic) DDD (degenerative disc disease) (Chronic) BPH with urinary obstruction (Chronic) BPH (benign prostatic hypertrophy) (Chronic) History of migraine headaches (Chronic) Medical History (Updated 09/07/20 @ 13:17 by Corwin Carr MD) A-fib Likely paroxysmal. Regular rate and rhythm on exam today. On Eliquis for anticoagulation. States metoprolol is as needed for heart rate greater than 120. Request cardiology records. Abdominal pain Abdominal pain Alternating constipation and diarrhea Patient is concerned about rectal prolapse after diarrhea Will discuss possible rectal prolapse with Dr. Carr Hold MiraLAX and use only as needed. Start Colace 100 mg daily Anemia Anxiety Likely worsening secondary to cognitive impairment. No longer taking lorazepam and Cymbalta. Continue Lexapro 20 mg daily. Anxiety and depression Reported. Taking duloxetine 30 mg 3 times daily and lorazepam 0.25 mg daily. Anxiety disorder Asthma B12 deficiency History of. Likely secondary to bowel resection. Check B12 level. Continue vitamin B12 1000 mcg p.o. daily for now. Bowel obstruction (~03/02/19) BPH (benign prostatic hypertrophy) Taking Flomax twice daily. BPH with urinary obstruction Cerumen impaction Patient has been using Debrox a little bit at home. Successful repeat of ear lavage today. Cerumen removed from both ears. Chronic anticoagulation apixaban - afib? Daytime sleepiness Taking trazodone to help him sleep better at night, but continues to complain of daytime somnolence. Will investigate for worsening of anemia or thyroid. Likely needs to adjust sleep hygiene. DDD (degenerative disc disease) Depression Diverticulosis Fatigue Unknown etiology. Likely related to poor absorption status post partial small bowel resection. We will check for other vitamin deficiencies Fecal occult blood test positive Appears to have chronic blood loss. Continue iron infusions We will check CBC and iron studies in [address] Corwin Carr to do colonoscopy next month Gastroparesis GERD (gastroesophageal reflux disease) Headache, post-traumatic, acute Hematuria History of migraine headaches History of small bowel obstruction Multiple episodes subsequent to partial small bowel resection May 2017 due to diverticulitis of the jejunum. Now taking pyridostigmine, per Dr. Carr, to help prevent recurrence. History of urinary calculi Not an active complaint. Follows with Dr. Gar. Hyperlipemia Reported in history. Not on statin. We will check lipid panel. Hypothyroidism On Synthroid 212 mcg daily. At this dose for 1 month now. Check TSH and free T4. Iron deficiency anemia Possibly multiple causes related to history of nephrolithiasis, diverticulitis, and small bowel resection. Continue Venofer infusions monthly We will check iron studies today Kidney cyst, acquired Kidney stone Left flank pain Migraine Osteoarthritis Palpitations Partial obstruction of small intestine Partial small bowel obstruction Ptosis Renal cyst SBO (small bowel obstruction) SVT (supraventricular tachycardia) Urinary tract infection Surgical History H/O excision of ganglion cyst Right History of bowel resection x2, One in 2014 and 2016 initially in [place], [place], Dr. Taylor, then Traci Bhatti, [place], [place], Dr. Jameson History of cataract surgery History of cholecystectomy (~1991) History of colonoscopy History of endoscopy Two since 2017 History of left shoulder replacement (~2006) TANMAY Flores History of photovaporization of prostate (09/06/14) Dr. Gar; transurethral History of right shoulder replacement (~05/2015) Dr. So History of tonsillectomy Family History Grandmother Colon cancer Paternal Ovarian cancer Maternal Grandfather Myocardial infarction Paternal Father Cirrhosis of liver Mother Cirrhosis of liver Migraines Alcoholism Emphysema lung Family/Other Asthma Cancer Alcoholism Arthritis Migraines Social History marital status: occupational status: retired alcohol intake frequency: holiday/special occasion only substance use type: does not use seatbelt use: always MEDS/ALLERGIES Home Medications and Allergies Home Medications Medication Instructions Recorded Confirmed Type apixaban 5 mg tablet 5 mg PO BID 07/31/18 09/07/20 History cyanocobalamin (vitamin B-12) 500 1,000 mcg PO QDAY 07/31/18 09/07/20 History mcg tablet ascorbate calcium (vitamin C) 500 mg PO DAILY 03/02/19 09/07/20 History dexlansoprazole 60 mg PO DAILY 04/13/19 09/07/20 History iron sucrose 200 mg iron/10 mL 400 mg IV .COMPLEX #20 ml 09/13/19 09/07/20 Rx intravenous solution metoprolol succinate 25 mg PO DAILY PRN 12/02/19 09/07/20 History polyethylene glycol 3350 17 8.5 g PO QDAY PRN g 02/09/20 09/07/20 History gram/dose oral powder levothyroxine 200 mcg tablet 200 mcg PO QDAY #90 tab 02/14/20 09/07/20 Rx tamsulosin 0.4 mg capsule 0.4 mg PO BID #180 cap 05/16/20 09/07/20 Rx cholecalciferol (vitamin D3) 50 2,000 unit PO QDAY #90 cap 07/13/20 09/07/20 Rx mcg (2,000 unit) capsule pyridostigmine bromide 60 mg tablet 60 mg PO TID #270 tab 08/07/20 09/07/20 Rx clobetasol 0.05 % topical cream 1 applic TOPICAL BID #60 g 08/21/20 09/07/20 Rx escitalopram oxalate 10 mg tablet 10 mg PO DAILY #90 tab 08/21/20 09/07/20 Rx trazodone 50 mg tablet 150 mg PO HS #270 tab 08/21/20 09/07/20 Rx ketorolac 1 drp OPHTHALMIC (EYE) QID PRN 09/07/20 09/07/20 History riboflavin (vitamin B2) [Vitamin 400 mg PO QDAY 09/07/20 09/07/20 History B-2] Allergies Allergy/AdvReac Type Severity Reaction Status Date / Time No Known Drug Allergies Allergy Verified 07/17/20 11:22 Physical Examination Vital Signs Vital signs: Temp Pulse Resp BP Pulse Ox 98.3 F 49 L 18 127/75 97 09/07/20 12:00 09/07/20 12:00 09/07/20 12:00 09/07/20 12:00 09/07/20 12:00 General physical appearance General physical exam: well developed, well nourished, no distress and no pain Eyes Eye exam: PERRL and normal ocular movement ENT ENT exam: normal nares, normal mucosa and decreased hearing Head Head exam IM: Present atraumatic, normal inspection and normocephalic Neck Neck exam: no masses, no bruits, trachea midline, no lymphadenopathy and no venous distension Cardiovascular Cardiovascular exam IM: Present normal rate and rhythm, RRR, +S1 and +S2; Absent JVD and systolic murmur Respiratory Respiratory exam: normal expansion, normal respiratory effort and clear to auscultation Abdomen Abdomen: Present bowel sounds and surgical scars (Well-healed surgical scars); Absent non tender, rebound and distended Integumentary Integumentary: Present no rash, no growths and no abnormal pigmentation Neurologic Neurologic: Present normal coordination and normal sensation Musculoskeletal Musculoskeletal: Present normal gait and normal posture Psychiatric Psychiatric: Present oriented to time, oriented to person, oriented to place, speech is normal and memory intact Results Labs Result diagrams: 09/06/20 23:36 09/06/20 23:36 Labs: Abnormal lab results 09/06/20 09/06/20 Range/Units 23:18 23:36 RBC 3.94 L (4.50-5.90) M/mcL Hct 38.3 L (41.0-55.0) % MCH 34.3 H (26.0-34.0) pg MPV 10.8 H (7.4-10.4) fL Neut % (Auto) 84.0 H (38.0-78.0) % Lymph % (Auto) 6.8 L (15.0-49.0) % Lymph # (Auto) 0.66 L (1.50-4.80) K/mcL Absolute Neutrophils 8.10 H (1.80-8.00) K/mcL VBG Lactic Acid < 0.2 L (0.5-2.0) mmol/L Diabetes panel 09/06/20 Range/Units 23:36 Sodium 139 (133-145) mmol/L Potassium 3.3 (3.3-5.1) mmol/L Chloride 103 (96-108) mmol/L Carbon Dioxide 27 (22-30) mmol/L BUN 10 (8-23) mg/dL Creatinine 0.7 (0.7-1.2) mg/dL Glucose 103 (70-105) mg/dL Calcium 8.7 (8.6-10.4) mg/dL AST 16 (<40) U/L ALT 11 (<40) U/L Alkaline Phosphatase 117 (39-117) U/L Total Protein 6.5 (5.9-8.4) gm/dL Albumin 3.9 (3.2-5.2) gm/dL Calcium panel 09/06/20 Range/Units 23:36 Calcium 8.7 (8.6-10.4) mg/dL Albumin 3.9 (3.2-5.2) gm/dL Pituitary panel 09/06/20 Range/Units 23:36 Sodium 139 (133-145) mmol/L Potassium 3.3 (3.3-5.1) mmol/L Chloride 103 (96-108) mmol/L Carbon Dioxide 27 (22-30) mmol/L BUN 10 (8-23) mg/dL Creatinine 0.7 (0.7-1.2) mg/dL Glucose 103 (70-105) mg/dL Calcium 8.7 (8.6-10.4) mg/dL Adrenal panel 09/06/20 Range/Units 23:36 Sodium 139 (133-145) mmol/L Potassium 3.3 (3.3-5.1) mmol/L Chloride 103 (96-108) mmol/L Carbon Dioxide 27 (22-30) mmol/L BUN 10 (8-23) mg/dL Creatinine 0.7 (0.7-1.2) mg/dL Glucose 103 (70-105) mg/dL Calcium 8.7 (8.6-10.4) mg/dL Total Bilirubin 0.4 (0.1-1.0) mg/dL AST 16 (<40) U/L ALT 11 (<40) U/L Alkaline Phosphatase 117 (39-117) U/L Total Protein 6.5 (5.9-8.4) gm/dL Albumin 3.9 (3.2-5.2) gm/dL All other labs normal. A/P Assessment and plan (1) Abdominal pain: Status: Acute Qualifiers: Abdominal location: generalized Qualified Code(s): R10.84 - Generalized abdominal pain (2) Iron deficiency anemia: Status: Chronic Comment: Possibly multiple causes related to history of nephrolithiasis, diverticulitis, and small bowel resection. Continue Venofer infusions monthly We will check iron studies today Qualifiers: Iron deficiency anemia type: chronic blood loss Qualified Code(s): D50.0 - Iron deficiency anemia secondary to blood loss (chronic) (3) Anxiety and depression: Status: Chronic Comment: Reported. Taking duloxetine 30 mg 3 times daily and lorazepam 0.25 mg daily. (4) Gastroparesis: Status: Chronic (5) A-fib: Status: Chronic Comment: Likely paroxysmal. Regular rate and rhythm on exam today. On Eliquis for anticoagulation. States metoprolol is as needed for heart rate greater than 120. Request cardiology records. Qualifiers: Atrial fibrillation type: unspecified Qualified Code(s): I48.91 - Unspecified atrial fibrillation (6) GERD (gastroesophageal reflux disease): Status: Chronic Qualifiers: Esophagitis presence: esophagitis presence not specified Qualified Code(s): K21.9 - Gastro-esophageal reflux disease without esophagitis Narrative A/P Narrative: Hold pyridostigmine for the time being Trial of clear liquids and advance to full liquid diet as tolerated Reglan 10 mg IV every 8 hours Follow-up abdominal x-rays in the morning Time Spent With Patient Time: Total time spent is greater than 50% in coordination of care (as documented) at patient's floor/unit and/or counseling patient:
[2020-09-07] MEDS: METOCLOPRAMIDE 10 MG/2 ML VIAL IV SCH ×2 (17:21→23:35)
[2020-09-08] MEDS: 0.9 % SODIUM CHLORIDE 1,000 ML IV SCH (01:49)
[2020-09-08] MEDS: METOCLOPRAMIDE 10 MG/2 ML VIAL IV SCH ×2 (05:30→12:19)
--- NOTE | 2020-09-08 06:46 | XRay Report ---
CLINICAL INFORMATION: Adynamic ileus COMPARISON: 07/01/2020 FINDINGS: There are scattered air-fluid levels within the stomach small and large bowel which appear normal caliber. No free air. No pathologic calcification or organomegaly. IMPRESSION: Mild ileus Interpreted and Authenticated by: Nahid Sandoval 09/08/20
--- NOTE | 2020-09-08 15:08 | Discharge Summary ---
Discharge Provider Provider Patient information: Note initiated : 09/08/20 at 3:05 pm Service Date, if different from initiated Date: [] Patient: Luc Major 80 y/o M admitted on 09/07/20 for abdominal pain. Chief Complaint: [] Date of admission: 09/07/20 05:28 Discharge date: 09/08/20 Primary care physician: Nahid Ahuja DO Admitting clinician: Best Fuentes Attending physician on admission: Jada Carr Consults: 09/07/20 Consult to Physician [CONS] Stat Comment: Consulting Provider: Best Fuentes Reason For Exam: Physician to Consult 09/07/20 11:43 Consult to Physician [CONS] Routine Comment: Consulting Provider: Jada Carr Reason For Exam: Physician to Consult Attending physician on discharge: Jennifer Carr Discharging clinician: Jada Carr COURSE Hospital Course Hospital course: 80-year-old male admitted with a history of crampy abdominal pain with nausea and vomiting. Patient has a long history of intestinal obstruction or pseudoobstruction. He had been having liquid stools for the past month but on the day prior to admission developed severe crampy pain with decreased flatus and decreased to. When seen in the emergency room he was in severe straits and had uncontrolled pain and nausea and vomiting. He had dilated loops of the small bowel but not total obstruction. He was admitted and started on Reglan. He was continued on liquid diet. Patient has done well and his symptoms have resolved. He is no longer nauseated and he is having bowel movements. He was taken off pyridostigmine for the time being and I will follow him up in the office in 2 weeks. Discharge diagnosis: Adynamic ileus Secondary discharge diagnosis: Colonic pseudoobstruction Reason for admission: Recurrent abdominal pain nausea and vomiting Procedures: None Pertinent studies/significant findings: None Complications: None Time Spent with Patient Time attestation: Total time spent providing and/or coordinating discharge services: Physical Examination Vital Signs Vital signs: Temp Pulse Resp BP Pulse Ox 98.6 F 45 L 20 152/77 95 09/08/20 12:00 09/08/20 03:44 09/08/20 12:00 09/08/20 12:00 09/08/20 12:00 General physical appearance General physical exam: well developed, well nourished, no distress and no pain Eyes Eye exam: PERRL and normal ocular movement ENT ENT exam: normal nares, normal mucosa and decreased hearing Head Head exam IM: Present atraumatic, normal inspection and normocephalic Neck Neck exam: no masses, no bruits, trachea midline, no lymphadenopathy and no venous distension Cardiovascular Cardiovascular exam IM: Present normal rate and rhythm, RRR, +S1 and +S2; Absent JVD and systolic murmur Respiratory Respiratory exam: normal expansion, normal respiratory effort and clear to auscultation Abdomen Abdomen: Present bowel sounds and surgical scars (Well-healed surgical scars); Absent non tender, rebound and distended Integumentary Integumentary: Present no rash, no growths and no abnormal pigmentation Neurologic Neurologic: Present normal coordination and normal sensation Musculoskeletal Musculoskeletal: Present normal gait and normal posture Psychiatric Psychiatric: Present oriented to time, oriented to person, oriented to place, speech is normal and memory intact Discharge Plan Patient/Caregiver Discharge Instructions Activity: increase activity as tolerated Diet: Dysphagia Level 5 Minced & Moist Foods Instructions: Acute Abdominal Pain (GEN) Activity Restrictions/Additional Instructions: This discharge packet is provided to you to help keep you informed about your care. We want to ensure you get everything you need when you go home. You will also be receiving a call from us in a few days to follow up with you and see how you are doing since your discharge. This gives us a chance to listen to any concerns you maybe experiencing since you were discharged or any additional needs you may have, as well as providing us feedback on your care experience. We strive to always provide excellent care and thank you for your feedback and for choosing [facility]. Prescriptions: Discontinued pyridostigmine bromide 60 mg tablet 60 mg PO TID Qty: 270 RF: 5 No Action Venofer 200 mg iron/10 mL solution 400 mg IV .COMPLEX Qty: 20 RF: 5 levothyroxine 200 mcg tablet 200 mcg PO QDAY Qty: 90 RF: 3 tamsulosin 0.4 mg capsule 0.4 mg PO BID Qty: 180 RF: 5 cholecalciferol (vitamin D3) 50 mcg (2,000 unit) capsule 2,000 unit PO QDAY Qty: 90 RF: 0 trazodone 50 mg tablet 150 mg PO HS Qty: 270 RF: 1 clobetasol 0.05 % cream 1 applic topical BID Qty: 60 RF: 0 escitalopram oxalate 10 mg tablet 10 mg PO DAILY Qty: 90 RF: 3 ascorbate calcium (vitamin C) 500 MG tablet 500 mg PO DAILY RF: 0 dexlansoprazole 60 MG capsule,biphase delayed releas 60 mg PO DAILY RF: 0 metoprolol succinate 25 MG tablet extended release 24 hr 25 mg PO DAILY PRN (Reason: Tachyarrhythmias) RF: 0 riboflavin (vitamin B2) [Vitamin B-2] 100 mg Tablet 400 mg PO QDAY RF: 0 ketorolac 0.5 % Dropperette 1 drp OPHTHALMIC (EYE) QID PRN (Reason: Dry Eyes) RF: 0 Eliquis 5 mg tablet 5 mg PO BID RF: 0 cyanocobalamin (vitamin B-12) [Vitamin B-12] 500 mcg tablet 1,000 mcg PO QDAY RF: 0 polyethylene glycol 3350 [Miralax] 17 gram/dose powder 8.5 g PO QDAY PRN (Reason: Constipation) RF: 0 Follow Up Plan Follow up with: Nahid Ahuja DO [Primary Care Provider] - 09/18/20 1:00 pm (This appointment will be with Isidoro Villavicencio as Dr. Ahuja is out for a few days. Please check in at 12:45pm) Jada Carr MD [Physician] - (Contact office for an appointment in 2 weeks) Patient Disposition: Home, Self-Care Prognosis: Good Rehab Potential: Good I certify that the patient requires SNF services: No Overall status at discharge: patient is back to baseline Discharge Orders: Discharge Order (Routine); Ordered 09/08/20 Ordered By: Jada Carr Pending Pending Pending: Resuscitation Status Full Code Diet Full Liquid Diet Start FriSep 08 0800 Sodium Chloride (Sodium Chloride 0.9%) 1,000 mls @ 50 mls/hr IV .Q20H BASIM Last Infusion: 09/08/20 08:50 Dose: 50 mls/hr Documented by: Admin: 09/08/20 01:49 Dose: 50 mls/hr Documented by: Infusion: 09/08/20 00:30 Dose: 50 mls/hr Documented by: Admin: 09/07/20 04:58 Dose: 50 mls/hr Documented by: GÉNESIS Metoclopramide HCl (Metoclopramide 10 Mg/2 Ml Vial) 10 mg IV Q6 BASIM Last Admin: 09/08/20 12:19 Dose: 10 mg Documented by: Admin: 09/08/20 05:30 Dose: 10 mg Documented by: Admin: 09/07/20 23:35 Dose: 10 mg Documented by: Admin: 09/07/20 17:21 Dose: 10 mg Documented by: SALVATORE Shift Summary 09/08/20 04:41 Shift Summary by Anat Garcia Admitted 09/07 for abdominal pain with extensive GI history including bowel resections x2 for recurrent obstructions. 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 A/O x4, pleasant,appreciative of care and has consistently denied pain or nausea thru night. Passing small amt flatus and reports marked improvement in abd comfort. HR range 40's to 50's with Hx PAF but only uses metoprolol on PRN basis. IV NS at 50mls/hr via healthy site right forearm. Steady on feet ad donald to/from BR to void and has used call as requested for needs. May have Full Liq diet this A.M. and plan is for likely discharge later this a.m. VSS. Only med given tonight was IV Reglan other than fluids. Rest of report to follow at bedside. Initialized on 09/08/20 04:41 - END OF NOTE
== END 2020-09-08 15:35 | disposition home or self-care (01) ==
LOC: ED 23:10 → INTOOBSV 09-07 05:28 → ICU 09-07 05:28
PROVIDERS: ADMIT Family Medicine Adult Medicine; ATTEND Family Medicine Adult Medicine

== ENCOUNTER 2020-11-06 11:35 | Inpatient (IN) ==
[2020-11-06] MEDS ORDERED: ONDANSETRON 4 MG/2 ML VIAL IV PRN ×2 (12:55→13:04)
[2020-11-06] MEDS ORDERED: PROMETHAZINE 25 MG/ML VIAL IV PRN (13:04)
[2020-11-06] MEDS ORDERED: traZODone HCL 50 MG TABLET PO PRN (13:04)
--- NOTE | 2020-11-06 13:25 | General Surg History&Physical ---
HPI History of Present Illness Patient information: Note initiated : 11/06/20 at 12:49 pm Service Date, if different from initiated Date: [] Patient: Luc Major 80 y/o M admitted on 11/06/20 for small bowel obstruction. Chief Complaint: [] Chief complaint: Partial small bowel obstruction History of present illness: Mr. Major is a 80 year old M admitted for treatment of partial small bowel obstruction. The patient has a very long history of recurrent episodes of intestinal obstruction and has had reoperations multiple times. He was last admitted to this facility on 09/07/2020. He states that he had 6 large liquid bowel movements yesterday and after that time he had increasing abdominal this distention with crampy severe abdominal pain with nausea. Symptoms started about 1930 hrs. Symptoms became progressively worse and he was seen in our emergency room with findings suggestive of possible early closed-loop bowel obstruction. Because of nonavailability of beds he was transferred to [facility]. He was monitored there but continued to have severe discomfort and wished to be treated at our facility. Once a bed was available the patient was admitted as a direct admit and is started on treatment. 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 Patient will be treated with Reglan and Regonol. Follow-up x-rays will be done tomorrow and if he responds appropriately a small bowel follow-through will be done later tomorrow morning. Based on present x-rays patient should not need operative therapy at this time. Constitutional Constitutional: Present fatigue, lethargy, malaise and weakness EENT Ears: Present decreased hearing Nose, mouth and throat: Absent dysphagia, hoarseness and sore throat Cardiovascular Cardiovascular: Present dyspnea on exertion; Absent paroxysmal nocturnal dyspnea Respiratory Respiratory: Absent cough, wheezing and chest congestion Gastrointestinal Gastrointestinal: Present abdominal pain, change in bowel habits, diarrhea, early satiety, fecal incontinence, heartburn, loose stools, nausea and vomiting Musculoskeletal Musculoskeletal: Present arthralgias, back pain, muscle cramps and muscle weakness Neurological Neurological: Present abnormal hearing and headache(s); Absent syncope and vertigo Psychiatric Psychiatric: Present anxiety Hematologic/Lymphatic Hematologic/Lymphatic: Absent easy bleeding, easy bruising and lymphadenopathy Allergic/Immunologic Allergic/Immunologic: Absent tongue swelling, throat swelling, itchy eyes, uticaria, wheezing and lip swelling PFSH PFSH All Active Problems Small bowel obstruction (Acute) Acquired short bowel syndrome (Acute) Medicare annual wellness visit, subsequent (Acute) Abdominal pain (Acute) SBO (small bowel obstruction) (Acute) Chronic anticoagulation (Chronic) Hemorrhoid prolapse (Acute) Nummular eczema (Chronic) Cognitive impairment (Chronic) Fatigue (Chronic) Fecal occult blood test positive (Chronic) Anxiety and depression (Chronic) Iron deficiency anemia (Chronic) Depression (Chronic) Daytime sleepiness (Chronic) Osteoarthritis (Chronic) Anxiety (Chronic) Asthma (Chronic) History of small bowel obstruction (Chronic) Gastroparesis (Chronic) History of urinary calculi (Chronic) Hematuria (Chronic) A-fib (Chronic) GERD (gastroesophageal reflux disease) (Chronic) Hyperlipemia (Chronic) Anxiety disorder (Chronic) Anemia (Chronic) B12 deficiency (Chronic) Hypothyroidism (Chronic) DDD (degenerative disc disease) (Chronic) BPH with urinary obstruction (Chronic) BPH (benign prostatic hypertrophy) (Chronic) History of migraine headaches (Chronic) Medical History A-fib Likely paroxysmal. Regular rate and rhythm on exam today. On Eliquis for anticoagulation. States metoprolol is as needed for heart rate greater than 120. Request cardiology records. Abdominal pain Abdominal pain Alternating constipation and diarrhea Patient is concerned about rectal prolapse after diarrhea Will discuss possible rectal prolapse with Dr. Carr Hold MiraLAX and use only as needed. Start Colace 100 mg daily Anemia Anxiety Likely worsening secondary to cognitive impairment. No longer taking lorazepam and Cymbalta. Continue Lexapro 20 mg daily. Anxiety and depression Reported. Taking duloxetine 30 mg 3 times daily and lorazepam 0.25 mg daily. Anxiety disorder Asthma B12 deficiency History of. Likely secondary to bowel resection. Check B12 level. Continue vitamin B12 1000 mcg p.o. daily for now. Bowel obstruction (~03/02/19) BPH (benign prostatic hypertrophy) Taking Flomax twice daily. BPH with urinary obstruction Cerumen impaction Patient has been using Debrox a little bit at home. Successful repeat of ear lavage today. Cerumen removed from both ears. Chronic anticoagulation apixaban - afib? Daytime sleepiness Taking trazodone to help him sleep better at night, but continues to complain of daytime somnolence. Will investigate for worsening of anemia or thyroid. Likely needs to adjust sleep hygiene. DDD (degenerative disc disease) Depression Diverticulosis Fatigue Unknown etiology. Likely related to poor absorption status post partial small bowel resection. We will check for other vitamin deficiencies Fecal occult blood test positive Appears to have chronic blood loss. Continue iron infusions We will check CBC and iron studies in [address] Corwin Carr to do colonoscopy next month Gastroparesis GERD (gastroesophageal reflux disease) Headache, post-traumatic, acute Hematuria History of migraine headaches History of small bowel obstruction Multiple episodes subsequent to partial small bowel resection May 2017 due to diverticulitis of the jejunum. Now taking pyridostigmine, per Dr. Carr, to help prevent recurrence. History of urinary calculi Not an active complaint. Follows with Dr. Gar. Hyperlipemia Reported in history. Not on statin. We will check lipid panel. Hypothyroidism On Synthroid 212 mcg daily. At this dose for 1 month now. Check TSH and free T4. Iron deficiency anemia Possibly multiple causes related to history of nephrolithiasis, diverticulitis, and small bowel resection. Continue Venofer infusions monthly We will check iron studies today Kidney cyst, acquired Kidney stone Left flank pain Medicare annual wellness visit, subsequent Migraine Osteoarthritis Palpitations Partial obstruction of small intestine Partial small bowel obstruction Ptosis Renal cyst SBO (small bowel obstruction) SVT (supraventricular tachycardia) Urinary tract infection Surgical History H/O excision of ganglion cyst Right History of bowel resection x2, One in 2014 and 2016 initially in [place], [place], Dr. Taylor, then Traci Bhatti, [place], [place], Dr. Jameson History of cataract surgery History of cholecystectomy (~1991) History of colonoscopy History of endoscopy Two since 2017 History of left shoulder replacement (~2006) TANMAY Flores History of photovaporization of prostate (09/06/14) Dr. Gar; transurethral History of right shoulder replacement (~05/2015) Dr. So History of tonsillectomy Family History Grandmother Colon cancer Paternal Ovarian cancer Maternal Grandfather Myocardial infarction Paternal Father Cirrhosis of liver Mother Cirrhosis of liver Migraines Alcoholism Emphysema lung Family/Other Asthma Cancer Alcoholism Arthritis Migraines Social History household members: spouse lives independently: Yes marital status: occupational status: retired smoking status: Never smoker alcohol intake frequency: holiday/special occasion only substance use type: does not use seatbelt use: always MEDS/ALLERGIES Home Medications and Allergies Home Medications Medication Instructions Recorded Confirmed Type apixaban 5 mg tablet 5 mg PO BID 07/31/18 11/06/20 History cyanocobalamin (vitamin B-12) 500 1,000 mcg PO QDAY 07/31/18 11/06/20 History mcg tablet ascorbate calcium (vitamin C) 500 mg PO DAILY 03/02/19 11/06/20 History dexlansoprazole 60 mg PO DAILY 04/13/19 11/06/20 History polyethylene glycol 3350 17 17 g PO QDAY PRN g 02/09/20 11/06/20 History gram/dose oral powder tamsulosin 0.4 mg capsule 0.4 mg PO BID #180 cap 05/16/20 11/06/20 Rx cholecalciferol (vitamin D3) 50 2,000 unit PO QDAY #90 cap 07/13/20 11/06/20 Rx mcg (2,000 unit) capsule escitalopram oxalate 10 mg tablet 10 mg PO DAILY #90 tab 08/21/20 11/06/20 Rx trazodone 50 mg tablet 150 mg PO HS #270 tab 08/21/20 11/06/20 Rx ketorolac 1 drp OPHTHALMIC (EYE) QID PRN 09/07/20 11/06/20 History riboflavin (vitamin B2) [Vitamin 400 mg PO QDAY 09/07/20 11/06/20 History B-2] levothyroxine 200 mcg PO QDAY 11/06/20 11/06/20 History Allergies Allergy/AdvReac Type Severity Reaction Status Date / Time No Known Drug Allergies Allergy Verified 11/06/20 11:59 Physical Examination Vital Signs Vital signs: Temp Pulse Resp BP Pulse Ox 97.6 F 69 22 97/64 93 11/06/20 12:00 11/06/20 12:00 11/06/20 12:00 11/06/20 12:00 11/06/20 12:00 General physical appearance General physical exam: well developed, well nourished, no distress and chronically ill Eyes Eye exam: PERRL and normal ocular movement ENT ENT exam: normal nares, normal mucosa and decreased hearing Head Head exam IM: Present atraumatic, normal inspection and normocephalic Neck Neck exam: no masses, no bruits, trachea midline, no lymphadenopathy and no venous distension Cardiovascular Cardiovascular exam IM: Present normal rate and rhythm, RRR, +S1 and +S2; Absent JVD and systolic murmur Abdomen Abdomen: Present bowel sounds and surgical scars (Well-healed surgical scars); Absent non tender, rebound and distended Integumentary Integumentary: Present no rash, no growths and no abnormal pigmentation Neurologic Neurologic: Present normal coordination and normal sensation Musculoskeletal Musculoskeletal: Present normal gait and normal posture Psychiatric Psychiatric: Present oriented to time, oriented to person, oriented to place, speech is normal and memory intact Results Labs Labs: All other labs normal. A/P Assessment and plan (1) Small bowel obstruction: Status: Acute (2) Gastroparesis: Status: Chronic (3) Iron deficiency anemia: Status: Chronic Comment: Possibly multiple causes related to history of nephrolithiasis, diverticulitis, and small bowel resection. Continue Venofer infusions monthly We will check iron studies today Qualifiers: Iron deficiency anemia type: chronic blood loss Qualified Code(s): D50.0 - Iron deficiency anemia secondary to blood loss (chronic) (4) Anxiety and depression: Status: Chronic Comment: Reported. Taking duloxetine 30 mg 3 times daily and lorazepam 0.25 mg daily. (5) A-fib: Status: Chronic Comment: Likely paroxysmal. Regular rate and rhythm on exam today. On Eliquis for anticoagulation. States metoprolol is as needed for heart rate greater than 120. Request cardiology records. Qualifiers: Atrial fibrillation type: unspecified Qualified Code(s): I48.91 - Unspecified atrial fibrillation (6) GERD (gastroesophageal reflux disease): Status: Chronic Qualifiers: Esophagitis presence: esophagitis presence not specified Qualified Code(s): K21.9 - Gastro-esophageal reflux disease without esophagitis (7) Acquired short bowel syndrome: Status: Acute Comment: With frequent watery bowel movements, iron deficiency, and vitamin B12 deficiency Continue iron and vitamin B-12 supplementation We will decrease iron to every 2 months rather than every month Continue B12 IM injections monthly Encourage fiber supplement such as Citrucel Refer to dietitian (8) Chronic anticoagulation: Status: Chronic Comment: apixaban - afib? (9) Depression: Status: Chronic Qualifiers: Active/Remission status: currently active Depression Type: major depressive disorder Major depression episode severity: moderate Major depr ession recurrence: unspecified whether recurrent Qualified Code(s): F32.1 - Major depressive disorder, single episode, moderate Narrative A/P Narrative: IV normal saline infusion Metoclopramide 10 mg IV every 6 hours Regonol 10 mg IM every 6 hours 2 view abdominal x-rays in the morning If gas pattern is improved we will proceed with small bowel follow-through Time Spent With Patient Time: Total time spent is greater than 50% in coordination of care (as documented) at patient's floor/unit and/or counseling patient:
[2020-11-06] MEDS ORDERED: 0.9 % SODIUM CHLORIDE 10 ML SYRINGE IV SCH (14:00)
[2020-11-06] MEDS: 0.9 % SODIUM CHLORIDE 1,000 ML IV SCH ×2 (14:09→23:58)
[2020-11-06] MEDS: 0.9 % SODIUM CHLORIDE 10 ML SYRINGE IV SCH ×2 (14:10→20:52)
[2020-11-06] MEDS ORDERED: KETOROLAC TROMETHAMINE 5 ML DROPS OP PRN ×2 (16:31→16:45)
[2020-11-06] MEDS: METOCLOPRAMIDE 10 MG/2 ML VIAL IV SCH ×2 (17:23→23:58)
[2020-11-06] MEDS: PYRIDOSTIGMINE BROMIDE 10 MG/2 ML AMPUL IM SCH ×2 (17:23→23:58)
[2020-11-06] MEDS: HYDROmorphone 1 MG/ML SYRINGE IV PRN (18:15)
[2020-11-06] MEDS ORDERED: DOCUSATE SODIUM 100 MG CAPSULE PO SCH (21:00)
[2020-11-06] MEDS ORDERED: SENNOSIDES 1 TABLET PO SCH (21:00)
[2020-11-07] MEDS: 0.9 % SODIUM CHLORIDE 10 ML SYRINGE IV SCH ×3 (04:39→21:04)
[2020-11-07] MEDS: 0.9 % SODIUM CHLORIDE 1,000 ML IV SCH ×4 (05:04→22:45)
[2020-11-07] MEDS: PYRIDOSTIGMINE BROMIDE 10 MG/2 ML AMPUL IM SCH ×2 (06:02→14:45)
[2020-11-07] MEDS: METOCLOPRAMIDE 10 MG/2 ML VIAL IV SCH ×4 (06:07→23:59)
[2020-11-07 07:31] LABS: Basophils # (Auto) 0.06 K/mcL (0.00-0.20); Basophils % (Auto) 0.9 % (0.0-2.0); Eosinophils # (Auto) 0.08 K/mcL (0.00-0.70); Eosinophils % (Auto) 1.2 % (0.0-7.0); Hemoglobin 12.9 g/dL (13.5-16.5); Lymphocytes # (Auto) 0.92 K/mcL (1.50-4.80); Lymphocytes % (Auto) 13.8 % (15.0-49.0); Mean Corpuscular HGB Conc 33.9 g/dL (31.0-36.0); Mean Platelet Volume 10.6 fL (7.4-10.4); Monocytes # (Auto) 0.74 K/mcL (0.10-0.90); Monocytes % (Auto) 11.1 % (1.0-12.0); Platelet Count 220 K/mcL (140-440); Red Cell Distribution Width 12.7 % (11.5-14.5); WBC 6.7 K/mcL (4.5-11.0)
--- NOTE | 2020-11-07 07:47 | XRay Report ---
INDICATION: Intestinal pseudoobstruction TECHNIQUE: Supine and upright abdomen. COMPARISON: Previous plain film examination dated 11/06/2020. Previous CT scan dated 11/06/2020 FINDINGS:Interval removal of esophagogastric tube. Bowel gas pattern is unremarkable. There is gas and fecal material within the colon. No dilated gas-filled small bowel. There is no pneumoperitoneum. No biliary or portal venous gas. No pneumatosis. No focal abnormality. IMPRESSION: 1. Status post removal of esophagogastric tube 2. Unremarkable bowel gas pattern Interpreted and Authenticated by: Nahid Vázquez 11/07/20
[2020-11-07 08:30] LABS: ALT/SGPT 12 U/L (<40); AST/SGOT 17 U/L (<40); Albumin 3.7 gm/dL (3.2-5.2); Albumin/Globulin Ratio 1.5 (1.0-2.3); Alkaline Phosphatase 100 U/L (39-117); Bilirubin,Direct < 0.2 mg/dL (0-0.3); Bilirubin,Total 0.7 mg/dL (0.1-1.0); Blood Urea Nitrogen 13 mg/dL (8-23); Calcium 8.3 mg/dL (8.6-10.4); Carbon Dioxide 24 mmol/L (22-30); Chloride 108 mmol/L (96-108); Globulin 2.4 gm/dL (2.2-3.7); Glomerular Filtration Rate 89; Glucose 84 mg/dL (70-105); Lactate Dehydrogenase 168 U/L (135-225); Phosphorous 2.9 mg/dL (2.5-4.5); Triglycerides 119 mg/dL (<150); Uric Acid 4.6 mg/dL (2.5-8.0)
[2020-11-07] MEDS: HYDROmorphone 1 MG/ML SYRINGE IV PRN (08:36)
[2020-11-07] MEDS ORDERED: DIATRIZOATE MEGLU/DIATRIZO SOD 30 ML BOTTLE PO ONE (11:39)
--- NOTE | 2020-11-07 11:59 | General Surgery Progress Note ---
SUBJECTIVE Subjective Patient information: Note initiated : 11/07/20 at 11:54 am Service Date, if different from initiated Date: [] Patient: Luc Major 80 y/o M admitted on 11/06/20 for small bowel obstruction. Chief Complaint: [] Principal diagnosis: Partial small bowel obstruction Interval history: Patient is clinically improved. He started passing flatus last evening and had 2 bowel movements by the morning. He has had 3 bowel movements since that time. He is presently in the middle of the small bowel follow-through contrast study. He denies nausea. He denies abdominal pain. Constitutional Vitals: Vital Signs Temp Pulse Resp BP Pulse Ox 98.5 F 58 L 14 147/76 96 11/07/20 08:00 11/07/20 08:00 11/07/20 08:00 11/07/20 08:00 11/07/20 08:00 Period Temp Pulse Resp BP Sys/Williamson Pulse Ox Last 24 Hr 97.6 F-99.2 F 52-69 14-22 90-147/50-76 90-96 Intake and Output 11/06/20 11/07/20 11/07/20 21:59 05:59 13:59 Intake Total 0 1000 1000 Balance 0 1000 1000 Weight 186 lb 3.2 oz Intake & Output: Intake & Output 11/06/20 11/07/20 11/07/20 21:59 05:59 13:59 Intake Total 0 1000 1000 Balance 0 1000 1000 Weight 186 lb 3.2 oz Intake: IV 1000 1000 Sodium Chloride 0.9% 1,000 ml @ 1000 1000 125 mls/hr IV .Q8H [facility] Rx#: [id number] Oral 0 0 Other: Stool Size Moderate Stool Color Brown Stool Consistency Loose # Voids 1 Head Head exam: Present atraumatic, normal inspection and normocephalic Eye Eye exam: Present EOMI Pupils: Present PERRL ENT ENT exam: Present mucous membranes moist and normal oropharynx Additional comments: Decreased hearing Neck Neck exam: Present full ROM and normal inspection; Absent tenderness and thyromegaly Respiratory Respiratory exam: Present CTAB; Absent rales, respiratory distress, rhonchi and wheezes Cardiovascular Cardiovascular exam: Present normal rate and rhythm, RRR, +S1 and +S2; Absent JVD GI/Abdominal GI/Abdominal exam: Present normal bowel sounds and soft; Absent distended, guarding and tenderness Extremities Exam Extremities exam: Present full ROM; Absent tenderness Neurological Exam Neurological exam: Present alert, normal gait and oriented X3; Absent motor sensory deficit Psychiatric Psychiatric exam: Present normal affect and normal mood; Absent anxious and depressed A/P Assessment and plan (1) Small bowel obstruction: Status: Acute (2) Gastroparesis: Status: Chronic (3) Iron deficiency anemia: Status: Chronic Comment: Possibly multiple causes related to history of nephrolithiasis, diverticulitis, and small bowel resection. Continue Venofer infusions monthly We will check iron studies today Qualifiers: Iron deficiency anemia type: chronic blood loss Qualified Code(s): D50.0 - Iron deficiency anemia secondary to blood loss (chronic) (4) Anxiety and depression: Status: Chronic Comment: Reported. Taking duloxetine 30 mg 3 times daily and lorazepam 0.25 mg daily. (5) A-fib: Status: Chronic Comment: Likely paroxysmal. Regular rate and rhythm on exam today. On Eliquis for anticoagulation. States metoprolol is as needed for heart rate greater than 120. Request cardiology records. Qualifiers: Atrial fibrillation type: unspecified Qualified Code(s): I48.91 - Unspecified atrial fibrillation (6) GERD (gastroesophageal reflux disease): Status: Chronic Qualifiers: Esophagitis presence: esophagitis presence not specified Qualified Code(s): K21.9 - Gastro-esophageal reflux disease without esophagitis (7) Acquired short bowel syndrome: Status: Acute Comment: With frequent watery bowel movements, iron deficiency, and vitamin B12 deficiency Continue iron and vitamin B-12 supplementation We will decrease iron to every 2 months rather than every month Continue B12 IM injections monthly Encourage fiber supplement such as Citrucel Refer to dietitian (8) Chronic anticoagulation: Status: Chronic Comment: apixaban - afib? (9) Depression: Status: Chronic Qualifiers: Depression Type: major depressive disorder Major depression recurrence: unspecified whether recurrent Active/Remission status: currently active Major depression episode severity: moderate Qualified Code(s): F32.1 - Major depressive disorder, single episode, moderate Narrative A/P Narrative: Complete small bowel follow-through contrast study Follow-up x-rays in the morning Trial of full liquids Time Spent With Patient Time: Total time spent is greater than 50% in coordination of care (as documented) at patient's floor/unit and/or counseling patient:
--- NOTE | 2020-11-07 12:02 | XRay Report ---
INDICATION: r/o small bowel obstruction TECHNIQUE: Gastrografin was administered. Immediate and 60 minute post ingestion images obtained COMPARISON: Plain film examination dated 11/07/2020 FINDINGS: At 1 hour post ingestion there is contrast material throughout the small bowel and colon. No evidence for mechanical small bowel obstruction. No focal abnormality IMPRESSION: Negative examination. No mechanical small bowel obstruction Interpreted and Authenticated by: Nahid Vázquez 11/07/20
[2020-11-08] MEDS: METOCLOPRAMIDE 10 MG/2 ML VIAL IV SCH (05:56)
[2020-11-08] MEDS: 0.9 % SODIUM CHLORIDE 10 ML SYRINGE IV SCH (05:56)
[2020-11-08] MEDS: 0.9 % SODIUM CHLORIDE 1,000 ML IV SCH (06:56)
[2020-11-08 07:16] LABS: Basophils # (Auto) 0.05 K/mcL (0.00-0.20); Basophils % (Auto) 0.9 % (0.0-2.0); Eosinophils % (Auto) 1.8 % (0.0-7.0); Hematocrit 34.4 % (41.0-55.0); Hemoglobin 12.1 g/dL (13.5-16.5); Lymphocytes # (Auto) 0.84 K/mcL (1.50-4.80); Mean Cell Volume 98.9 fL (80.0-100.0); Mean Corpuscular HGB Conc 35.2 g/dL (31.0-36.0); Mean Platelet Volume 10.6 fL (7.4-10.4); Monocytes # (Auto) 0.62 K/mcL (0.10-0.90); Monocytes % (Auto) 11.1 % (1.0-12.0); Neutrophils % (Auto) 71.2 % (38.0-78.0); Platelet Count 212 K/mcL (140-440); RBC 3.48 M/mcL (4.50-5.90); Red Cell Distribution Width 12.4 % (11.5-14.5); WBC 5.6 K/mcL (4.5-11.0)
--- NOTE | 2020-11-08 07:44 | Discharge Summary ---
Discharge Provider Provider Patient information: Note initiated : 11/08/20 at 7:37 am Service Date, if different from initiated Date: [] Patient: Luc Major 80 y/o M admitted on 11/06/20 for small bowel obstruction. Chief Complaint: [] Date of admission: 11/06/20 11:35 Discharge date: 11/08/20 Primary care physician: Nahid Ahuja DO Admitting clinician: Jada Carr Attending physician on admission: Jada Carr Attending physician on discharge: Jada Carr COURSE Hospital Course Hospital course: 80-year-old male with long history of recurrent intestinal obstructions and partial obstruction. He has had multiple operations for small bowel involvement. He is also had multiple adhesiolysis procedures. He presented to our emergency room with a history of onset of severe crampy ab dominal pain with nausea. CT suggested a closed-loop obstruction and at the time we did not have a bed available. He was transferred to [facility] but did not wish to stay there because they wanted to operate on him immediately. In the past the patient has responded with nonoperative management. Once a bed became available he was transferred here and has been treated nonoperatively. He had a small bowel follow-through on yesterday which showed transit through the colon and 1 hour ruling out obstruction. He has had at least 8 bowel movements and is now totally asymptomatic. He is tolerated diet without difficulty and has no pain or nausea and is passing flatus. Patient is stable for discharge home. Discharge diagnosis: Partial intestinal obstruction Secondary discharge diagnosis: History of gastroparesis Gastroesophageal reflux disease Anxiety with depression Reason for admission: Small bowel obstruction Procedures: None Pertinent studies/significant findings: Small bowel follow-through Complications: None Time Spent with Patient Time attestation: Total time spent providing and/or coordinating discharge services: Physical Examination Vital Signs Vital signs: Temp Pulse Resp BP Pulse Ox 98.2 F 51 L 12 125/78 90 11/08/20 03:42 11/08/20 03:42 11/08/20 03:42 11/08/20 03:42 11/08/20 03:42 General physical appearance General physical exam: well developed, well nourished, no distress, no pain and chronically ill Eyes Eye exam: PERRL and normal ocular movement ENT ENT exam: normal nares, normal mucosa and decreased hearing Head Head exam IM: Present atraumatic, normal inspection and normocephalic Neck Neck exam: no masses, no bruits, trachea midline, no lymphadenopathy and no venous distension Cardiovascular Cardiovascular exam IM: Present normal rate and rhythm, RRR, +S1 and +S2; Absent JVD and systolic murmur Respiratory Respiratory exam: normal expansion, normal respiratory effort and clear to auscultation Abdomen Abdomen: Present bowel sounds and surgical scars (Well-healed surgical scars); Absent non tender, rebound and distended Integumentary Integumentary: Present no rash, no growths and no abnormal pigmentation Neurologic Neurologic: Present normal coordination and normal sensation Musculoskeletal Musculoskeletal: Present normal gait and normal posture Psychiatric Psychiatric: Present oriented to time, oriented to person, oriented to place, speech is normal and memory intact Discharge Plan Patient/Caregiver Discharge Instructions Activity: increase activity as tolerated Diet: Regular Diet Prescriptions: Continued tamsulosin 0.4 mg capsule 0.4 mg PO BID Qty: 180 RF: 5 cholecalciferol (vitamin D3) 50 mcg (2,000 unit) capsule 2,000 unit PO QDAY Qty: 90 RF: 0 trazodone 50 mg tablet 150 mg PO HS Qty: 270 RF: 1 escitalopram oxalate 10 mg tablet 10 mg PO DAILY Qty: 90 RF: 3 ascorbate calcium (vitamin C) 500 MG tablet 500 mg PO DAILY RF: 0 dexlansoprazole 60 MG capsule,biphase delayed releas 60 mg PO DAILY RF: 0 riboflavin (vitamin B2) [Vitamin B-2] 100 mg Tablet 400 mg PO QDAY RF: 0 ketorolac 0.5 % Dropperette 1 drp OPHTHALMIC (EYE) QID PRN (Reason: Dry Eyes) RF: 0 levothyroxine 200 mcg tablet 200 mcg PO QDAY RF: 0 Eliquis 5 mg tablet 5 mg PO BID RF: 0 cyanocobalamin (vitamin B-12) [Vitamin B-12] 500 mcg tablet 1,000 mcg PO QDAY RF: 0 polyethylene glycol 3350 [Miralax] 17 gram/dose powder 17 g PO QDAY PRN (Reason: Constipation) RF: 0 Follow Up Plan Follow up with: Jada Carr MD [Physician] - (Follow-up in the office as needed) Patient Disposition: Home, Self-Care Assessment: Patient is in stable satisfactory condition Prognosis: Good Rehab Potential: Good I certify that the patient requires SNF services: No Overall status at discharge: patient is back to baseline Discharge Orders: Discharge Order (Routine); Ordered 11/08/20 Ordered By: Jada Carr Pending Pending Pending: Resuscitation Status Full Code Diet GI Soft/Transitional Start FriNovember 08 0800 Diet Full Liquid Diet Start FriNovember 07 1159 Hydromorphone HCl (Hydromorphone 1 Mg/Ml Syringe) 1 mg IV Q2HP PRN; Protocol PRN Reason: Per Pain Protocol Last Admin: 11/07/20 08:36 Dose: 1 mg Documented by: Admin: 11/06/20 18:15 Dose: 1 mg Documented by: NINA Sodium Chloride (Sodium Chloride 0.9%) 1,000 mls @ 125 mls/hr IV .[facility]8H [facility] Last Admin: 11/08/20 06:56 Dose: 125 mls/hr Documented by: Infusion: 11/08/20 06:45 Dose: 125 mls/hr Documented by: Admin: 11/07/20 22:45 Dose: 125 mls/hr Documented by: Infusion: 11/07/20 22:34 Dose: 0 mls/hr Documented by: Admin: 11/07/20 14:34 Dose: 125 mls/hr Documented by: Infusion: 11/07/20 14:21 Dose: 125 mls/hr Documented by: Admin: 11/07/20 06:21 Dose: 125 mls/hr Documented by: Infusion: 11/07/20 06:21 Dose: 125 mls/hr Documented by: Admin: 11/07/20 05:04 Dose: Not Given Documented by: Admin: 11/06/20 23:58 Dose: 125 mls/hr Documented by: Infusion: 11/06/20 22:09 Dose: 125 mls/hr Documented by: Admin: 11/06/20 14:09 Dose: 125 mls/hr Documented by: LISY Metoclopramide HCl (Metoclopramide 10 Mg/2 Ml Vial) 10 mg IV Q6 [facility] Last Admin: 11/08/20 05:56 Dose: 10 mg Documented by: Admin: 11/07/20 23:59 Dose: 10 mg Documented by: Admin: 11/07/20 17:58 Dose: 10 mg Documented by: Admin: 11/07/20 12:06 Dose: 10 mg Documented by: Admin: 11/07/20 06:07 Dose: 10 mg Documented by: Cosigned by: DOMINGO Admin: 11/06/20 23:58 Dose: 10 mg Documented by: Admin: 11/06/20 17:23 Dose: 10 mg Documented by: LISY Sodium Chloride (0.9 % Sodium Chloride 10 Ml Syringe) 10 ml IV Q8 BASIM Last Admin: 11/08/20 05:56 Dose: Not Given Documented by: Admin: 11/07/20 21:04 Dose: Not Given Documented by: Admin: 11/07/20 15:05 Dose: Not Given Documented by: Admin: 11/07/20 04:39 Dose: Not Given Documented by: Admin: 11/06/20 20:52 Dose: Not Given Documented by: Admin: 11/06/20 14:10 Dose: 10 ml Documented by: LISY Trazodone HCl (Trazodone Hcl 50 Mg Tablet) 50 mg PO HSP PRN PRN Reason: Insomnia Last Admin: 11/07/20 21:03 Dose: 50 mg Documented by: RONNIE Shift Summary 11/08/20 04:36 Shift Summary by Felisha Quintanilla&Octavia4. Pleasant and cooperative gentlemen who has a history of recurrent bowel obstructions and bowel resections. Obstruction appears to have resolved, he had a couple loose stools tonight had multiple loose stools yesterday. Has some urgency and incontinent issues, wears attends. Received Trazodone for sleep. MIV of NS at 125mls/hr. No complaints of pain or nausea requiring prns. Up with SBA for help with IV pole. Diet will advance to GI soft this am and he hopes to d/c home with . Calls for needs. Initialized on 11/08/20 04:36 - END OF NOTE
[2020-11-08 08:21] LABS: ALT/SGPT 11 U/L (<40); AST/SGOT 18 U/L (<40); Albumin 3.3 gm/dL (3.2-5.2); Albumin/Globulin Ratio 1.5 (1.0-2.3); Alkaline Phosphatase 87 U/L (39-117); Bilirubin,Direct < 0.2 mg/dL (0-0.3); Bilirubin,Total 0.6 mg/dL (0.1-1.0); Blood Urea Nitrogen 10 mg/dL (8-23); Calcium 8.1 mg/dL (8.6-10.4); Carbon Dioxide 23 mmol/L (22-30); Chloride 109 mmol/L (96-108); Globulin 2.2 gm/dL (2.2-3.7); Glomerular Filtration Rate 95; Glucose 79 mg/dL (70-105); Lactate Dehydrogenase 171 U/L (135-225); Phosphorous 2.7 mg/dL (2.5-4.5); Triglycerides 82 mg/dL (<150); Uric Acid 4.6 mg/dL (2.5-8.0)
--- NOTE | 2020-11-08 08:23 | XRay Report ---
INDICATION: FOR F/U OF ILEUS TECHNIQUE: Supine and upright abdomen. COMPARISON: Previous Gastrografin small bowel study dated 11/07/2020 FINDINGS:There is a small amount of contrast material within the descending and sigmoid colon. Contrast material has been otherwise almost completely evacuated. Bowel gas pattern is unremarkable. No dilated gas-filled small bowel. There is no pneumoperitoneum. No biliary or portal venous gas. No pneumatosis. IMPRESSION: 1. Unremarkable bowel gas pattern. No evidence for clinical small bowel structures 2. Almost complete evacuation of contrast material since 11/07/2020 Interpreted and Authenticated by: Nahid Vázquez 11/08/20
== END 2020-11-08 09:10 | disposition home or self-care (01) | DRG 389 ==
LOC: MEDSUR 11:35
PROVIDERS: ADMIT Family Medicine Adult Medicine; ATTEND Family Medicine Adult Medicine

== ENCOUNTER 2024-05-17 08:29 | Inpatient (IN) ==
[2024-05-17] MEDS ORDERED: IOPAMIDOL 100 ML BOTTLE IV ONE (08:30)
[2024-05-17] MEDS: morphine 2 MG/ML VIAL IV PRN (08:54)
[2024-05-17] MEDS: ONDANSETRON 4 MG/2 ML VIAL IV ONE (08:54)
[2024-05-17 09:28] LABS: Basophils # (Auto) 0.02 K/mcL (0.00-0.30); Basophils % (Auto) 0.2 % (0.0-2.0); Eosinophils # (Auto) 0.03 K/mcL (0.00-0.70); Eosinophils % (Auto) 0.3 % (0.0-7.0); Hematocrit 42.5 % (40.1-51.0); Hemoglobin 14.6 g/dL (13.7-17.5); Lymphocytes % (Auto) 6.9 % (15.5-49.0); Mean Cell Volume 96.6 fL (80.0-100.0); Mean Corpuscular HGB Conc 34.4 g/dL (31.0-36.0); Mean Platelet Volume 10.6 fL (8.8-12.5); Monocytes # (Auto) 0.69 K/mcL (0.10-0.90); Monocytes % (Auto) 6.8 % (1.0-12.0); Neutrophils % (Auto) 85.6 % (38.0-78.0); Platelet Count 245 K/mcL (140-440); WBC 10.2 K/mcL (4.5-11.0)
[2024-05-17 09:41] LABS: ALT/SGPT 30 U/L (<40); AST/SGOT 28 U/L (<40); Albumin 4.1 gm/dL (3.2-5.2); Albumin/Globulin Ratio 1.4 (1.0-2.3); Alkaline Phosphatase 99 U/L (39-117); Bilirubin,Total 0.6 mg/dL (0.1-1.0); Blood Urea Nitrogen 14 mg/dL (8-23); Calcium 8.9 mg/dL (8.6-10.4); Carbon Dioxide 26 mmol/L (22-30); Chloride 103 mmol/L (96-108); Globulin 2.9 gm/dL (2.2-3.7); Glomerular Filtration Rate 87; Glucose 118 mg/dL (70-105); Potassium 3.8 mmol/L (3.3-5.1); Sodium 141 mmol/L (133-145)
[2024-05-17] MEDS ORDERED: ONDANSETRON 4 MG/2 ML VIAL IV PRN ×2 (10:03→14:12)
[2024-05-17 10:23] LABS: INR 1.1 (0.9-1.1); Prothrombin Time 14.1 sec (11.9-14.5)
[2024-05-17] MEDS: PYRIDOSTIGMINE BROMIDE 10 MG/2 ML AMPUL IV SCH (15:26)
[2024-05-17] MEDS: 0.9 % SODIUM CHLORIDE 1,000 ML IV SCH (15:26)
[2024-05-17 16:27] LABS: Appearance,Urine Clear (Clear); Bacteria,Urine 0 /hpf (0); Bilirubin,Urine Negative (Negative); Color,Urine Yellow; Glucose,Urine (UA) Negative (Negative); Ketones,Urine 15 mg/dL (Negative); Leukocyte Esterase,Urine Negative /uL (Negative); Mucus,Urine Mod /hpf; Nitrate,Urine Negative (Negative); Protein,Urine Negative (Negative); Urine Blood Negative ery/mcL (Negative); Urine RBC 1 /hpf (0-3); Urine Squamous Epithelial Cell 0 /hpf (0-4); Urine WBC 0 /hpf (0-4); Urobilinogen,Urine Normal
[2024-05-17] MEDS: METOCLOPRAMIDE 10 MG/2 ML VIAL IV SCH (18:33)
[2024-05-17] MEDS: BENZOCAINE ONE 20% 1 SPRAY TOPICAL PRN (20:00)
[2024-05-18 06:40] LABS: Basophils # (Auto) 0.03 K/mcL (0.00-0.30); Basophils % (Auto) 0.4 % (0.0-2.0); Eosinophils # (Auto) 0.08 K/mcL (0.00-0.70); Eosinophils % (Auto) 1.1 % (0.0-7.0); Hematocrit 39.1 % (40.1-51.0); Hemoglobin 13.4 g/dL (13.7-17.5); Lymphocytes # (Auto) 0.69 K/mcL (1.50-4.80); Lymphocytes % (Auto) 9.1 % (15.5-49.0); Mean Corpuscular HGB Conc 34.3 g/dL (31.0-36.0); Mean Platelet Volume 10.3 fL (8.8-12.5); Monocytes % (Auto) 11.9 % (1.0-12.0); Neutrophils % (Auto) 77.2 % (38.0-78.0); Platelet Count 224 K/mcL (140-440); RBC 3.99 M/mcL (4.63-6.08); Red Cell Distribution Width 12.2 % (11.5-14.5); WBC 7.6 K/mcL (4.5-11.0)
[2024-05-18 06:52] LABS: ALT/SGPT 37 U/L (<40); AST/SGOT 30 U/L (<40); Albumin 3.5 gm/dL (3.2-5.2); Albumin/Globulin Ratio 1.3 (1.0-2.3); Alkaline Phosphatase 100 U/L (39-117); Bilirubin,Direct 0.3 mg/dL (<0.3); Bilirubin,Total 0.6 mg/dL (0.1-1.0); Blood Urea Nitrogen 17 mg/dL (8-23); Calcium 8.3 mg/dL (8.6-10.4); Carbon Dioxide 27 mmol/L (22-30); Chloride 105 mmol/L (96-108); Globulin 2.6 gm/dL (2.2-3.7); Glomerular Filtration Rate 87; Glucose 101 mg/dL (70-105); Lactate Dehydrogenase 175 U/L (135-225); Phosphorous 2.7 mg/dL (2.5-4.5); Potassium 3.2 mmol/L (3.3-5.1); Sodium 142 mmol/L (133-145); Triglycerides 113 mg/dL (<150); Uric Acid 5.3 mg/dL (2.5-8.0)
[2024-05-18] MEDS: 0.9 % SODIUM CHLORIDE 1,000 ML IV SCH (14:55)
[2024-05-18] MEDS: POLYETHYLENE GLYCOL 3350 17 GM PACKET PO SCH (19:15)
[2024-05-19 06:21] LABS: Basophils # (Auto) 0.04 K/mcL (0.00-0.30); Basophils % (Auto) 0.6 % (0.0-2.0); Eosinophils % (Auto) 1.4 % (0.0-7.0); Hematocrit 37.8 % (40.1-51.0); Hemoglobin 12.7 g/dL (13.7-17.5); Lymphocytes # (Auto) 0.91 K/mcL (1.50-4.80); Mean Cell Volume 97.9 fL (80.0-100.0); Mean Corpuscular HGB Conc 33.6 g/dL (31.0-36.0); Mean Platelet Volume 10.3 fL (8.8-12.5); Monocytes # (Auto) 0.94 K/mcL (0.10-0.90); Monocytes % (Auto) 13.5 % (1.0-12.0); Neutrophils % (Auto) 70.9 % (38.0-78.0); Platelet Count 217 K/mcL (140-440); RBC 3.86 M/mcL (4.63-6.08)
== END 2024-05-19 16:42 | disposition home or self-care (01) | DRG 389 ==
LOC: ED 08:29 → MEDSUR 11:00
PROVIDERS: ADMIT Family Medicine Adult Medicine; ATTEND Family Medicine Adult Medicine

== ENCOUNTER 2024-05-29 21:27 | Observation (INO) ==
[2024-05-29] MEDS ORDERED: IOPAMIDOL 100 ML BOTTLE IV ONE (21:28)
[2024-05-29] MEDS: ONDANSETRON 4 MG/2 ML VIAL IV ONE (21:56)
[2024-05-29] MEDS: 0.9 % SODIUM CHLORIDE 1,000 ML IV ONE (21:56)
[2024-05-29 22:15] LABS: Basophils # (Auto) 0.03 K/mcL (0.00-0.30); Basophils % (Auto) 0.2 % (0.0-2.0); Eosinophils # (Auto) 0.05 K/mcL (0.00-0.70); Eosinophils % (Auto) 0.3 % (0.0-7.0); Hematocrit 46.4 % (40.1-51.0); Hemoglobin 15.5 g/dL (13.7-17.5); Lymphocytes # (Auto) 0.56 K/mcL (1.50-4.80); Lymphocytes % (Auto) 3.4 % (15.5-49.0); Mean Cell Volume 98.3 fL (80.0-100.0); Mean Corpuscular HGB Conc 33.4 g/dL (31.0-36.0); Mean Platelet Volume 10.4 fL (8.8-12.5); Monocytes # (Auto) 1.08 K/mcL (0.10-0.90); Monocytes % (Auto) 6.6 % (1.0-12.0); Neutrophils % (Auto) 89.2 % (38.0-78.0); Platelet Count 304 K/mcL (140-440); RBC 4.72 M/mcL (4.63-6.08); Red Cell Distribution Width 12.2 % (11.5-14.5); WBC 16.3 K/mcL (4.5-11.0)
[2024-05-29 22:38] LABS: ALT/SGPT 28 U/L (<40); AST/SGOT 29 U/L (<40); Albumin 4.3 gm/dL (3.2-5.2); Albumin/Globulin Ratio 1.3 (1.0-2.3); Alkaline Phosphatase 104 U/L (39-117); Bilirubin,Total 0.3 mg/dL (0.1-1.0); Blood Urea Nitrogen 24 mg/dL (8-23); Calcium 9.4 mg/dL (8.6-10.4); Carbon Dioxide 22 mmol/L (22-30); Chloride 101 mmol/L (96-108); Globulin 3.3 gm/dL (2.2-3.7); Glomerular Filtration Rate 79; Glucose 119 mg/dL (70-105); Potassium 3.4 mmol/L (3.3-5.1); Sodium 137 mmol/L (133-145)
[2024-05-29 23:49] LABS: Appearance,Urine Clear (Clear); Bacteria,Urine Few /hpf (0); Bilirubin,Urine Color Interference mg/dL (Negative); Color,Urine Orange; Glucose,Urine (UA) Negative (Negative); Ketones,Urine Color Interference mg/dL (Negative); Leukocyte Esterase,Urine Negative /uL (Negative); Mucus,Urine Mod /hpf; Nitrate,Urine Negative (Negative); Protein,Urine Color Interference mg/dL (Negative); Urine Blood Negative ery/mcL (Negative); Urine Hyaline Cast 4 /lph (0-2); Urine RBC 0 /hpf (0-3); Urine Squamous Epithelial Cell 0 /hpf (0-4); Urine WBC 0 /hpf (0-4); Urobilinogen,Urine Normal
[2024-05-30] MEDS: 0.9 % SODIUM CHLORIDE 1,000 ML IV ONE (02:05)
[2024-05-30] MEDS: BENZOCAINE ONE 20% 1 SPRAY TOPICAL (03:30)
[2024-05-30] MEDS ORDERED: METOCLOPRAMIDE 10 MG/2 ML VIAL IV PRN (04:46)
[2024-05-30] MEDS: 0.9 % SODIUM CHLORIDE 1,000 ML IV SCH (08:35)
[2024-05-30] MEDS: PYRIDOSTIGMINE BROMIDE 10 MG/2 ML AMPUL IV SCH (08:35)
[2024-05-30] MEDS ORDERED: ONDANSETRON 4 MG/2 ML VIAL IV PRN (13:22)
[2024-05-30] MEDS ORDERED: BENZOCAINE ONE 20% 1 SPRAY TOPICAL PRN (14:02)
[2024-05-30] MEDS ORDERED: BENZOCAINE ONE 20% 1 SPRAY TOPICAL SCH (18:00)
[2024-05-31 09:36] LABS: Basophils # (Auto) 0.02 K/mcL (0.00-0.30); Basophils % (Auto) 0.3 % (0.0-2.0); Eosinophils # (Auto) 0.09 K/mcL (0.00-0.70); Eosinophils % (Auto) 1.2 % (0.0-7.0); Hematocrit 39.4 % (40.1-51.0); Hemoglobin 13.2 g/dL (13.7-17.5); Lymphocytes # (Auto) 0.93 K/mcL (1.50-4.80); Lymphocytes % (Auto) 12.7 % (15.5-49.0); Mean Cell Volume 98.5 fL (80.0-100.0); Mean Corpuscular HGB Conc 33.5 g/dL (31.0-36.0); Mean Platelet Volume 10.4 fL (8.8-12.5); Monocytes # (Auto) 0.68 K/mcL (0.10-0.90); Monocytes % (Auto) 9.3 % (1.0-12.0); Neutrophils % (Auto) 76.2 % (38.0-78.0); Platelet Count 261 K/mcL (140-440); Red Cell Distribution Width 12.5 % (11.5-14.5); WBC 7.3 K/mcL (4.5-11.0)
[2024-05-31 09:50] LABS: ALT/SGPT 20 U/L (<40); AST/SGOT 22 U/L (<40); Albumin 3.7 gm/dL (3.2-5.2); Albumin/Globulin Ratio 1.4 (1.0-2.3); Alkaline Phosphatase 74 U/L (39-117); Bilirubin,Direct 0.3 mg/dL (<0.3); Bilirubin,Total 0.5 mg/dL (0.1-1.0); Blood Urea Nitrogen 12 mg/dL (8-23); Calcium 8.5 mg/dL (8.6-10.4); Carbon Dioxide 22 mmol/L (22-30); Chloride 110 mmol/L (96-108); Globulin 2.6 gm/dL (2.2-3.7); Glomerular Filtration Rate 93; Glucose 104 mg/dL (70-105); Lactate Dehydrogenase 270 U/L (135-225); Phosphorous 2.3 mg/dL (2.5-4.5); Potassium 3.6 mmol/L (3.3-5.1); Sodium 142 mmol/L (133-145); Triglycerides 137 mg/dL (<150); Uric Acid 4.7 mg/dL (2.5-8.0)
[2024-05-31] MEDS: morphine 2 MG/ML VIAL IV PRN (11:49)
[2024-05-31] MEDS: MAGNESIUM HYDROXIDE 30 ML ORAL.SUSP PO SCH (17:49)
[2024-06-01 06:06] LABS: Basophils # (Auto) 0.04 K/mcL (0.00-0.30); Basophils % (Auto) 0.7 % (0.0-2.0); Eosinophils # (Auto) 0.12 K/mcL (0.00-0.70); Hematocrit 38.3 % (40.1-51.0); Hemoglobin 12.9 g/dL (13.7-17.5); Lymphocytes % (Auto) 14.8 % (15.5-49.0); Mean Cell Volume 98.7 fL (80.0-100.0); Mean Corpuscular HGB Conc 33.7 g/dL (31.0-36.0); Mean Platelet Volume 10.5 fL (8.8-12.5); Monocytes # (Auto) 0.74 K/mcL (0.10-0.90); Monocytes % (Auto) 12.2 % (1.0-12.0); Neutrophils % (Auto) 70.1 % (38.0-78.0); Platelet Count 266 K/mcL (140-440); RBC 3.88 M/mcL (4.63-6.08); Red Cell Distribution Width 12.5 % (11.5-14.5); WBC 6.1 K/mcL (4.5-11.0)
[2024-06-01 06:48] LABS: ALT/SGPT 20 U/L (<40); AST/SGOT 24 U/L (<40); Albumin 3.7 gm/dL (3.2-5.2); Albumin/Globulin Ratio 1.5 (1.0-2.3); Alkaline Phosphatase 77 U/L (39-117); Bilirubin,Direct < 0.2 mg/dL (0-0.3); Bilirubin,Total 0.4 mg/dL (0.1-1.0); Blood Urea Nitrogen 13 mg/dL (8-23); Calcium 8.7 mg/dL (8.6-10.4); Carbon Dioxide 23 mmol/L (22-30); Chloride 107 mmol/L (96-108); Globulin 2.4 gm/dL (2.2-3.7); Glomerular Filtration Rate 87; Glucose 98 mg/dL (70-105); Lactate Dehydrogenase 164 U/L (135-225); Phosphorous 2.5 mg/dL (2.5-4.5); Potassium 3.5 mmol/L (3.3-5.1); Sodium 141 mmol/L (133-145); Triglycerides 127 mg/dL (<150); Uric Acid 4.6 mg/dL (2.5-8.0)
== END 2024-06-01 14:06 | disposition home or self-care (01) ==
LOC: MEDSUR 21:27 → ED 21:27 → MEDSUR 05-30 06:00
PROVIDERS: ADMIT Family Medicine Adult Medicine; ATTEND Family Medicine Adult Medicine

== ENCOUNTER 2024-08-30 06:11 | Inpatient (IN) ==
[2024-08-30] MEDS ORDERED: IOPAMIDOL 100 ML BOTTLE IV ONE (06:12)
[2024-08-30] MEDS: 0.9 % SODIUM CHLORIDE 500 ML IV ONE (07:02)
[2024-08-30 07:21] LABS: Basophils # (Auto) 0.02 K/mcL (0.00-0.30); Basophils % (Auto) 0.1 % (0.0-2.0); Eosinophils # (Auto) 0.02 K/mcL (0.00-0.70); Eosinophils % (Auto) 0.1 % (0.0-7.0); Hemoglobin 15.1 g/dL (13.7-17.5); Lymphocytes # (Auto) 0.69 K/mcL (1.50-4.80); Mean Cell Volume 96.9 fL (80.0-100.0); Mean Corpuscular HGB Conc 34.3 g/dL (31.0-36.0); Mean Platelet Volume 10.5 fL (8.8-12.5); Monocytes % (Auto) 7.2 % (1.0-12.0); Neutrophils % (Auto) 87.4 % (38.0-78.0); Platelet Count 284 K/mcL (140-440); RBC 4.54 M/mcL (4.63-6.08); Red Cell Distribution Width 12.8 % (11.5-14.5); WBC 13.9 K/mcL (4.5-11.0)
[2024-08-30 07:24] LABS: ALT/SGPT 23 U/L (<40); AST/SGOT 23 U/L (<40); Albumin 4.3 gm/dL (3.2-5.2); Albumin/Globulin Ratio 1.4 (1.0-2.3); Alkaline Phosphatase 93 U/L (39-117); Bilirubin,Total 0.6 mg/dL (0.1-1.0); Blood Urea Nitrogen 16 mg/dL (8-23); Carbon Dioxide 23 mmol/L (22-30); Chloride 101 mmol/L (96-108); Glomerular Filtration Rate 82; Glucose 129 mg/dL (70-105); Potassium 3.7 mmol/L (3.3-5.1); Sodium 139 mmol/L (133-145)
[2024-08-30 09:21] LABS: Appearance,Urine Clear (Clear); Bilirubin,Urine Negative (Negative); Color,Urine Yellow; Glucose,Urine (UA) Negative (Negative); Ketones,Urine Negative (Negative); Leukocyte Esterase,Urine Negative /uL (Negative); Nitrate,Urine Negative (Negative); PH,Urine 7.5 (5.0-9.0); Protein,Urine Negative (Negative); Urine Blood Negative ery/mcL (Negative); Urine RBC 0 /hpf (0-3); Urine Squamous Epithelial Cell 0 /hpf (0-4); Urine WBC 0 /hpf (0-4); Urobilinogen,Urine Normal
[2024-08-30] MEDS: METOCLOPRAMIDE 10 MG/2 ML VIAL IV ONE (10:26)
[2024-08-30] MEDS: LIDOCAINE 2% URO-JET 10 ML JEL.PF.APP UR ONE (10:26)
[2024-08-30] MEDS: fentaNYL 100 MCG/2 ML VIAL IV ONE (10:26)
[2024-08-30] MEDS ORDERED: ONDANSETRON 4 MG/2 ML VIAL IV PRN ×2 (10:26→10:36)
[2024-08-30] MEDS ORDERED: HYDROmorphone 1 MG/ML SYRINGE IV PRN (10:36)
[2024-08-30] MEDS: 0.9 % SODIUM CHLORIDE 1,000 ML IV SCH (11:45)
[2024-08-30] MEDS: METOCLOPRAMIDE 10 MG/2 ML VIAL IV SCH (12:50)
[2024-08-30] MEDS: 0.9 % SODIUM CHLORIDE 10 ML SYRINGE IV SCH (14:17)
[2024-08-30] MEDS: PYRIDOSTIGMINE BROMIDE 10 MG/2 ML AMPUL IV SCH (17:18)
[2024-08-30] MEDS: PANTOPRAZOLE 40 MG VIAL IV SCH (17:18)
[2024-08-30] MEDS ORDERED: DOCUSATE SODIUM 100 MG CAPSULE PO SCH (21:00)
[2024-08-30] MEDS ORDERED: SENNOSIDES 1 TABLET PO SCH (21:00)
[2024-08-30] MEDS: traZODone HCL 50 MG TABLET PO SCH (22:07)
[2024-08-30] MEDS: TAMSULOSIN 0.4 MG CAPSULE PO SCH (22:07)
[2024-08-31 06:39] LABS: ALT/SGPT 18 U/L (<40); AST/SGOT 19 U/L (<40); Albumin 3.3 gm/dL (3.2-5.2); Albumin/Globulin Ratio 1.3 (1.0-2.3); Alkaline Phosphatase 68 U/L (39-117); Bilirubin,Direct 0.3 mg/dL (<0.3); Bilirubin,Total 0.6 mg/dL (0.1-1.0); Blood Urea Nitrogen 14 mg/dL (8-23); Calcium 8.3 mg/dL (8.6-10.4); Carbon Dioxide 23 mmol/L (22-30); Chloride 108 mmol/L (96-108); Globulin 2.5 gm/dL (2.2-3.7); Glomerular Filtration Rate 87; Glucose 96 mg/dL (70-105); Lactate Dehydrogenase 153 U/L (135-225); Phosphorous 2.8 mg/dL (2.5-4.5); Potassium 3.2 mmol/L (3.3-5.1); Sodium 139 mmol/L (133-145); Triglycerides 118 mg/dL (<150); Uric Acid 4.7 mg/dL (2.5-8.0)
[2024-08-31 06:45] LABS: Basophils # (Auto) 0.04 K/mcL (0.00-0.30); Basophils % (Auto) 0.6 % (0.0-2.0); Eosinophils % (Auto) 1.5 % (0.0-7.0); Hematocrit 38.2 % (40.1-51.0); Lymphocytes # (Auto) 0.83 K/mcL (1.50-4.80); Lymphocytes % (Auto) 12.7 % (15.5-49.0); Mean Cell Volume 98.7 fL (80.0-100.0); Mean Platelet Volume 10.6 fL (8.8-12.5); Monocytes # (Auto) 0.73 K/mcL (0.10-0.90); Monocytes % (Auto) 11.1 % (1.0-12.0); Neutrophils % (Auto) 73.8 % (38.0-78.0); Platelet Count 205 K/mcL (140-440); RBC 3.87 M/mcL (4.63-6.08); WBC 6.6 K/mcL (4.5-11.0)
[2024-08-31] MEDS: Vibegron 75 mg tablet PO SCH (08:36)
[2024-08-31] MEDS: POTASSIUM CHLORIDE 40 MEQ in DEXTROSE 5% IN WATER 500 ML IV ONE (16:33)
[2024-08-31] MEDS: POTASSIUM CHLORIDE 10 MEQ/100 ML BAG IV SCH (17:08)
[2024-09-01 06:11] LABS: Basophils # (Auto) 0.04 K/mcL (0.00-0.30); Basophils % (Auto) 0.6 % (0.0-2.0); Eosinophils # (Auto) 0.17 K/mcL (0.00-0.70); Eosinophils % (Auto) 2.5 % (0.0-7.0); Hematocrit 37.2 % (40.1-51.0); Hemoglobin 12.5 g/dL (13.7-17.5); Lymphocytes # (Auto) 0.97 K/mcL (1.50-4.80); Lymphocytes % (Auto) 14.3 % (15.5-49.0); Mean Cell Volume 98.7 fL (80.0-100.0); Mean Corpuscular HGB Conc 33.6 g/dL (31.0-36.0); Mean Platelet Volume 10.3 fL (8.8-12.5); Monocytes # (Auto) 0.71 K/mcL (0.10-0.90); Monocytes % (Auto) 10.5 % (1.0-12.0); Platelet Count 205 K/mcL (140-440); RBC 3.77 M/mcL (4.63-6.08); Red Cell Distribution Width 12.9 % (11.5-14.5); WBC 6.8 K/mcL (4.5-11.0)
[2024-09-01 06:34] LABS: ALT/SGPT 16 U/L (<40); AST/SGOT 17 U/L (<40); Albumin 3.2 gm/dL (3.2-5.2); Albumin/Globulin Ratio 1.4 (1.0-2.3); Alkaline Phosphatase 64 U/L (39-117); Bilirubin,Direct 0.2 mg/dL (<0.3); Bilirubin,Total 0.4 mg/dL (0.1-1.0); Blood Urea Nitrogen 10 mg/dL (8-23); Calcium 8.4 mg/dL (8.6-10.4); Carbon Dioxide 22 mmol/L (22-30); Chloride 110 mmol/L (96-108); Globulin 2.3 gm/dL (2.2-3.7); Glomerular Filtration Rate 87; Glucose 96 mg/dL (70-105); Lactate Dehydrogenase 146 U/L (135-225); Phosphorous 2.3 mg/dL (2.5-4.5); Potassium 3.8 mmol/L (3.3-5.1); Sodium 141 mmol/L (133-145); Triglycerides 122 mg/dL (<150); Uric Acid 4.6 mg/dL (2.5-8.0)
[2024-09-01 16:28] VITALS: TEMP 97.5; O2SAT 95
== END 2024-09-01 17:13 | disposition home or self-care (01) | DRG 390 ==
LOC: ED 06:11 → MEDSUR 11:38
PROVIDERS: ADMIT Family Medicine Adult Medicine; ATTEND Family Medicine Adult Medicine

== ENCOUNTER 2024-10-02 01:28 | Inpatient (IN) ==
[2024-10-02] MEDS ORDERED: IOPAMIDOL 100 ML BOTTLE IV ONE (01:29)
[2024-10-02] MEDS: ONDANSETRON 4 MG/2 ML VIAL IV PRN (01:46)
[2024-10-02] MEDS: 0.9 % SODIUM CHLORIDE 1,000 ML IV ONE (01:46)
[2024-10-02 01:57] LABS: Basophils # (Auto) 0.02 K/mcL (0.00-0.30); Basophils % (Auto) 0.1 % (0.0-2.0); Eosinophils # (Auto) 0.01 K/mcL (0.00-0.70); Eosinophils % (Auto) 0.1 % (0.0-7.0); Hematocrit 43.6 % (40.1-51.0); Lymphocytes # (Auto) 0.86 K/mcL (1.50-4.80); Lymphocytes % (Auto) 5.9 % (15.5-49.0); Mean Cell Volume 96.2 fL (80.0-100.0); Mean Corpuscular HGB Conc 34.4 g/dL (31.0-36.0); Mean Platelet Volume 10.1 fL (8.8-12.5); Monocytes # (Auto) 0.89 K/mcL (0.10-0.90); Monocytes % (Auto) 6.1 % (1.0-12.0); Neutrophils % (Auto) 87.6 % (38.0-78.0); Platelet Count 254 K/mcL (140-440); RBC 4.53 M/mcL (4.63-6.08); Red Cell Distribution Width 12.3 % (11.5-14.5); WBC 14.7 K/mcL (4.5-11.0)
[2024-10-02 02:12] LABS: ALT/SGPT 29 U/L (<40); AST/SGOT 27 U/L (<40); Albumin 4.2 gm/dL (3.2-5.2); Albumin/Globulin Ratio 1.3 (1.0-2.3); Alkaline Phosphatase 92 U/L (39-117); Bilirubin,Total 0.7 mg/dL (0.1-1.0); Blood Urea Nitrogen 16 mg/dL (8-23); C-Reactive Protein < 0.30 mg/dL (0.03-0.80); Calcium 9.5 mg/dL (8.6-10.4); Carbon Dioxide 26 mmol/L (22-30); Chloride 100 mmol/L (96-108); Globulin 3.3 gm/dL (2.2-3.7); Glomerular Filtration Rate 82; Glucose 137 mg/dL (70-105); Potassium 3.5 mmol/L (3.3-5.1); Sodium 139 mmol/L (133-145)
[2024-10-02 02:34] LABS: INR 1.1 (0.9-1.1); Prothrombin Time 14.8 sec (11.9-14.5)
[2024-10-02] MEDS: fentaNYL 100 MCG/2 ML VIAL IV ONE (03:39)
[2024-10-02] MEDS: ceFAZolin 1 GM VIAL IV ONE (03:52)
[2024-10-02] MEDS: metroNIDAZOLE 500 MG/100 ML BAG IV ONE (03:56)
[2024-10-02] MEDS ORDERED: PROCHLORPERAZINE 10 MG/2 ML VIAL IV PRN (07:53)
[2024-10-02] MEDS ORDERED: morphine 4 MG/ML VIAL IV PRN (07:53)
[2024-10-02] MEDS ORDERED: ONDANSETRON 4 MG/2 ML VIAL IV PRN (07:53)
[2024-10-02] MEDS ORDERED: METOPROLOL TARTRATE 5 MG/5 ML VIAL IV SCH (08:15)
[2024-10-02] MEDS: DEXTROSE 5%-1/2NS 1,000 ML IV SCH (10:12)
[2024-10-02] MEDS: PIPERACILLIN SODIUM/TAZOBACTAM 3.375 GM in DEXTROSE 5% IN WATER 50 ML IV ONE (10:17)
[2024-10-02] MEDS: DOCUSATE SODIUM 100 MG CAPSULE PO SCH (10:17)
[2024-10-02] MEDS: ENOXAPARIN 40 MG/0.4 ML SYRINGE SQ SCH (10:17)
[2024-10-02] MEDS: PIPERACILLIN SODIUM/TAZOBACTAM 3.375 GM in DEXTROSE 5% IN WATER 100 ML IV SCH (15:05)
[2024-10-02] MEDS: 0.9 % SODIUM CHLORIDE 10 ML SYRINGE IV SCH (15:05)
[2024-10-02] MEDS: SENNOSIDES 1 TABLET PO SCH (20:53)
[2024-10-03 06:48] LABS: Basophils # (Auto) 0.03 K/mcL (0.00-0.30); Basophils % (Auto) 0.4 % (0.0-2.0); Eosinophils % (Auto) 1.3 % (0.0-7.0); Hematocrit 38.7 % (40.1-51.0); Hemoglobin 12.9 g/dL (13.7-17.5); Lymphocytes # (Auto) 0.98 K/mcL (1.50-4.80); Lymphocytes % (Auto) 13.1 % (15.5-49.0); Mean Corpuscular HGB Conc 33.3 g/dL (31.0-36.0); Mean Platelet Volume 10.4 fL (8.8-12.5); Monocytes # (Auto) 0.78 K/mcL (0.10-0.90); Monocytes % (Auto) 10.4 % (1.0-12.0); Neutrophils % (Auto) 74.7 % (38.0-78.0); Platelet Count 210 K/mcL (140-440); RBC 3.87 M/mcL (4.63-6.08); Red Cell Distribution Width 12.5 % (11.5-14.5); WBC 7.5 K/mcL (4.5-11.0)
[2024-10-03 06:58] LABS: ALT/SGPT 21 U/L (<40); AST/SGOT 23 U/L (<40); Albumin 3.5 gm/dL (3.2-5.2); Albumin/Globulin Ratio 1.4 (1.0-2.3); Alkaline Phosphatase 64 U/L (39-117); Bilirubin,Total 0.5 mg/dL (0.1-1.0); Blood Urea Nitrogen 15 mg/dL (8-23); Calcium 8.4 mg/dL (8.6-10.4); Carbon Dioxide 28 mmol/L (22-30); Chloride 102 mmol/L (96-108); Globulin 2.5 gm/dL (2.2-3.7); Glomerular Filtration Rate 82; Glucose 105 mg/dL (70-105); Potassium 3.5 mmol/L (3.3-5.1); Sodium 139 mmol/L (133-145)
[2024-10-03] MEDS: PANTOPRAZOLE 40 MG TABLET PO SCH (06:58)
[2024-10-03] MEDS ORDERED: CARBOXYMETHYLCELLULOSE SODIUM 1 EACH DROPER.GEL OP PRN (08:48)
[2024-10-04 06:18] LABS: Basophils # (Auto) 0.06 K/mcL (0.00-0.30); Basophils % (Auto) 0.9 % (0.0-2.0); Eosinophils % (Auto) 1.5 % (0.0-7.0); Hematocrit 37.9 % (40.1-51.0); Hemoglobin 13.2 g/dL (13.7-17.5); Lymphocytes # (Auto) 0.77 K/mcL (1.50-4.80); Lymphocytes % (Auto) 11.8 % (15.5-49.0); Mean Cell Volume 97.7 fL (80.0-100.0); Mean Corpuscular HGB Conc 34.8 g/dL (31.0-36.0); Mean Platelet Volume 10.2 fL (8.8-12.5); Monocytes # (Auto) 0.75 K/mcL (0.10-0.90); Monocytes % (Auto) 11.5 % (1.0-12.0); Platelet Count 209 K/mcL (140-440); RBC 3.88 M/mcL (4.63-6.08); Red Cell Distribution Width 12.2 % (11.5-14.5); WBC 6.5 K/mcL (4.5-11.0)
[2024-10-04 06:51] LABS: ALT/SGPT 20 U/L (<40); AST/SGOT 20 U/L (<40); Albumin 3.6 gm/dL (3.2-5.2); Albumin/Globulin Ratio 1.4 (1.0-2.3); Alkaline Phosphatase 63 U/L (39-117); Bilirubin,Total 0.6 mg/dL (0.1-1.0); Blood Urea Nitrogen 8 mg/dL (8-23); Calcium 8.6 mg/dL (8.6-10.4); Carbon Dioxide 27 mmol/L (22-30); Chloride 104 mmol/L (96-108); Globulin 2.6 gm/dL (2.2-3.7); Glomerular Filtration Rate 87; Glucose 104 mg/dL (70-105); Sodium 141 mmol/L (133-145)
[2024-10-04] MEDS: POTASSIUM CHLORIDE 20 MEQ TABLET PO SCH (08:45)
[2024-10-05 06:42] LABS: Basophils # (Auto) 0.04 K/mcL (0.00-0.30); Basophils % (Auto) 0.8 % (0.0-2.0); Eosinophils # (Auto) 0.13 K/mcL (0.00-0.70); Eosinophils % (Auto) 2.6 % (0.0-7.0); Hematocrit 38.6 % (40.1-51.0); Hemoglobin 13.2 g/dL (13.7-17.5); Lymphocytes # (Auto) 0.83 K/mcL (1.50-4.80); Lymphocytes % (Auto) 16.3 % (15.5-49.0); Mean Corpuscular HGB Conc 34.2 g/dL (31.0-36.0); Mean Platelet Volume 10.1 fL (8.8-12.5); Monocytes # (Auto) 0.63 K/mcL (0.10-0.90); Monocytes % (Auto) 12.4 % (1.0-12.0); Neutrophils % (Auto) 67.5 % (38.0-78.0); Platelet Count 231 K/mcL (140-440); RBC 3.94 M/mcL (4.63-6.08); Red Cell Distribution Width 12.5 % (11.5-14.5); WBC 5.1 K/mcL (4.5-11.0)
[2024-10-05 07:02] LABS: ALT/SGPT 20 U/L (<40); AST/SGOT 23 U/L (<40); Albumin 3.6 gm/dL (3.2-5.2); Albumin/Globulin Ratio 1.4 (1.0-2.3); Alkaline Phosphatase 62 U/L (39-117); Bilirubin,Total 0.5 mg/dL (0.1-1.0); Blood Urea Nitrogen 5 mg/dL (8-23); Calcium 8.7 mg/dL (8.6-10.4); Carbon Dioxide 25 mmol/L (22-30); Chloride 105 mmol/L (96-108); Globulin 2.6 gm/dL (2.2-3.7); Glomerular Filtration Rate 87; Glucose 105 mg/dL (70-105); Potassium 3.1 mmol/L (3.3-5.1); Sodium 141 mmol/L (133-145)
[2024-10-06 06:03] LABS: Basophils # (Auto) 0.04 K/mcL (0.00-0.30); Basophils % (Auto) 0.7 % (0.0-2.0); Eosinophils # (Auto) 0.12 K/mcL (0.00-0.70); Eosinophils % (Auto) 2.2 % (0.0-7.0); Hematocrit 37.8 % (40.1-51.0); Hemoglobin 13.2 g/dL (13.7-17.5); Lymphocytes # (Auto) 0.97 K/mcL (1.50-4.80); Lymphocytes % (Auto) 18.2 % (15.5-49.0); Mean Cell Volume 96.4 fL (80.0-100.0); Mean Corpuscular HGB Conc 34.9 g/dL (31.0-36.0); Mean Platelet Volume 10.1 fL (8.8-12.5); Monocytes # (Auto) 0.69 K/mcL (0.10-0.90); Monocytes % (Auto) 12.9 % (1.0-12.0); Neutrophils % (Auto) 65.8 % (38.0-78.0); Platelet Count 229 K/mcL (140-440); RBC 3.92 M/mcL (4.63-6.08); Red Cell Distribution Width 12.2 % (11.5-14.5); WBC 5.3 K/mcL (4.5-11.0)
[2024-10-06 06:24] LABS: ALT/SGPT 32 U/L (<40); AST/SGOT 33 U/L (<40); Albumin 3.6 gm/dL (3.2-5.2); Albumin/Globulin Ratio 1.4 (1.0-2.3); Alkaline Phosphatase 65 U/L (39-117); Bilirubin,Total 0.6 mg/dL (0.1-1.0); Blood Urea Nitrogen 6 mg/dL (8-23); Calcium 9.1 mg/dL (8.6-10.4); Carbon Dioxide 25 mmol/L (22-30); Chloride 105 mmol/L (96-108); Globulin 2.5 gm/dL (2.2-3.7); Glomerular Filtration Rate 82; Glucose 93 mg/dL (70-105); Potassium 3.1 mmol/L (3.3-5.1); Sodium 141 mmol/L (133-145)
[2024-10-06 07:56] VITALS: TEMP 97.8; O2SAT 98
== END 2024-10-06 11:15 | disposition home or self-care (01) | DRG 389 ==
LOC: ED 01:28 → MEDSUR 09:41
PROVIDERS: ADMIT Surgery; ATTEND Surgery